=== PATIENT | male | born 1995 | race Caucasian/White ===

== ENCOUNTER 2018-06-11 17:18 | Inpatient (IN) | payer OTHER ==
[2018-06-11] MEDS ORDERED: ELECTROLYTE-A SOLUTION 1,000 ML IV STA (17:37)
[2018-06-11] MEDS ORDERED: ELECTROLYTE-A SOLUTION 1,000 ML IV ONE ×2 (17:37→18:21)
[2018-06-11] MEDS ORDERED: ONDANSETRON 4 MG/2 ML VIAL IVP STA (17:38)
--- NOTE | 2018-06-11 17:48 | ED Physician Documentation ---
History of Present Illness - Stated complaint Stated Complaint: N/V/ INCREASED HR - Chief complaint Chief Complaint: General - History obtained from History obtained from: Patient - History of Present Illness Timing: Today Pain level max: 0 Pain level now: 0 Improved by: nothing Worsened by: nothing - Additonal information Additional information: Patient is a 22-year-old male who presents to the emergency department after being diagnosed with type 1 diabetes approximately 2 months ago. States that he has had vomiting today and feels like his blood sugar is high. Has not checked his blood sugar today. He is on Lantus and Humalog at home. No fevers. No abdominal pain. No diarrhea. No recent travel. No antibiotics. No changes to his medication. He does use a sliding scale. Review of Systems Ten Systems: 10 systems reviewed and negative Constitutional: denies: Fever, Chills Ears: denies: Ear pain Nose: denies: Rhinorrhea / runny nose, Congestion Throat: denies: Sore throat Cardiac: denies: Chest pain / pressure Respiratory: denies: Cough GI: reports: Nausea, Vomiting. denies: Abdominal Pain, Diarrhea : denies: Dysuria Skin: denies: Rash Musculoskeletal: denies: Neck pain, Back pain Neurologic: denies: Headache PD PAST MEDICAL HISTORY - Past Medical History Past Medical History: Yes Endocrine/Autoimmune: Type 1 diabetes - Past Surgical History Past Surgical History: No - Present Medications Home Medications: Ambulatory Orders Medication Instructions Recorded Confirmed Insulin Glargine [Lantus Solostar] 25 unit SQ DAILY 06/11/18 06/11/18 Insulin Lispro [Humalog] PRN 06/11/18 - Allergies Allergies/Adverse Reactions: Allergies Allergy/AdvReac Type Severity Reaction Status Date / Time No Known Drug Allergies Allergy Verified 06/11/18 17:29 - Living Situation Living Situation: reports: With family Living Arrangement: reports: At home - Social History Does the pt smoke?: No Does the pt have substance abuse?: No PD ED PE NORMAL - Vitals Vital signs reviewed: Yes - General General: Alert and oriented X 3, No acute distress - HEENT HEENT: Moist mucous membranes - Neck Neck: Supple, no meningeal sign - Cardiac Cardiac: RRR - Respiratory Respiratory: No respiratory distress, Clear bilaterally - Abdomen Abdomen: Soft, Non tender, Non distended - Back Back: No CVA TTP, No spinal TTP - Derm Derm: Warm and dry, No rash - Extremities Extremities: No edema, No calf tenderness / cord - Neuro Neuro: Alert and oriented X 3 - Psych Psych: Normal mood, Normal affect Results - Vitals Vitals: Vital Signs - 24 hr 06/11/18 06/11/18 06/11/18 17:25 18:14 19:19 Temperature 36.5 C Heart Rate 128 H 86 88 Respiratory 18 18 18 Rate Blood Pressure 108/80 120/79 119/74 O2 Saturation 97 100 100 Oxygen O2 Source Room air - EKG (time done) 1746 Rate: Rate (enter#) (111) Rhythm: Sinus tachycardia [place]: Normal Intervals: Normal [place] QRS: Normal Ischemia: Normal ST segments - Labs Labs: Laboratory Tests 06/11/18 06/11/18 06/11/18 17:25 17:44 17:44 WBC 19.6 H RBC 5.59 Hgb 17.0 Hct 50.6 MCV 90.5 MCH 30.4 MCHC 33.6 RDW 13.3 Plt Count 244 MPV 9.6 Neut # (Auto) 16.9 H Lymph # (Auto) 2.2 [place] # (Auto) 0.5 Eos # (Auto) 0.0 Baso # (Auto) 0.0 Absolute Nucleated RBC 0.01 Nucleated RBC % 0.1 VBG pH VBG pCO2 VBG pO2 VBG HCO3 VBG Total CO2 VBG O2 Saturation VBG Base Excess Sodium 132 L Potassium 4.3 Chloride 100 L Carbon Dioxide 12 L* Anion Gap 20.0 H BUN 10 Creatinine 0.9 Estimated GFR (MDRD) 108 Glucose 316 H POC Whole Bld Glucose 309 H Calcium 9.4 Total Bilirubin 1.5 H AST 21 ALT 20 Alkaline Phosphatase 82 Total Protein 8.3 H Albumin 5.4 Globulin 2.9 Albumin/Globulin Ratio 1.9 Lipase 20 L Urine Color Urine Clarity Urine pH Ur Specific [place] Urine Protein Urine Glucose (UA) Urine Ketones Urine Occult Blood Urine Nitrite Urine Bilirubin Urine Urobilinogen Ur Leukocyte Esterase Urine RBC Urine WBC Ur Squamous Epith Cells Urine Bacteria Urine Casts Ur Microscopic Review Urine Culture Comments Urine Opiates Screen Ur Oxycodone Screen Urine Methadone Screen Ur Propoxyphene Screen Ur Barbiturates Screen Ur Tricyclics Screen Ur Phencyclidine Scrn Ur Amphetamine Screen U Methamphetamines Scrn U Benzodiazepines Scrn Urine Cocaine Screen U Cannabinoids Screen Serum Ketones SMALL H 09/14/18 09/14/18 09/14/18 18:20 18:40 18:40 WBC RBC Hgb Hct MCV MCH MCHC RDW Plt Count MPV Neut # (Auto) Lymph # (Auto) [place] # (Auto) Eos # (Auto) Baso # (Auto) Absolute Nucleated RBC Nucleated RBC % VBG pH 7.127 L VBG pCO2 32.6 L VBG pO2 31.6 VBG HCO3 10.5 L VBG Total CO2 11.5 L VBG O2 Saturation 60.5 VBG Base Excess -17.6 L Sodium Potassium Chloride Carbon Dioxide Anion Gap BUN Creatinine Estimated GFR (MDRD) Glucose POC Whole Bld Glucose Calcium Total Bilirubin AST ALT Alkaline Phosphatase Total Protein Albumin Globulin Albumin/Globulin Ratio Lipase Urine Color YELLOW Urine Clarity CLEAR Urine pH 5.5 Ur Specific [place] >=1.030 H Urine Protein 30 H Urine Glucose (UA) 500 H Urine Ketones >=80 H Urine Occult Blood TRACE-LYSE Urine Nitrite NEGATIVE Urine Bilirubin NEGATIVE Urine Urobilinogen 0.2 (NORMAL) Ur Leukocyte Esterase NEGATIVE Urine RBC 0-5 Urine WBC 0-3 Ur Squamous Epith Cells NONE SEEN Urine Bacteria None Seen Urine Casts 0-2 Hyaline Casts Ur Microscopic Review INDICATED Urine Culture Comments NOT INDICATED Urine Opiates Screen NEGATIVE Ur Oxycodone Screen NEGATIVE Urine Methadone Screen NEGATIVE Ur Propoxyphene Screen NEGATIVE Ur Barbiturates Screen NEGATIVE Ur Tricyclics Screen NEGATIVE Ur Phencyclidine Scrn NEGATIVE Ur Amphetamine Screen NEGATIVE U Methamphetamines Scrn NEGATIVE U Benzodiazepines Scrn NEGATIVE Urine Cocaine Screen NEGATIVE U Cannabinoids Screen NEGATIVE Serum Ketones 06/11/18 06/11/18 19:00 19:27 WBC RBC Hgb Hct MCV MCH MCHC RDW Plt Count MPV Neut # (Auto) Lymph # (Auto) [place] # (Auto) Eos # (Auto) Baso # (Auto) Absolute Nucleated RBC Nucleated RBC % VBG pH VBG pCO2 VBG pO2 VBG HCO3 VBG Total CO2 VBG O2 Saturation VBG Base Excess Sodium Potassium Chloride Carbon Dioxide Anion Gap BUN Creatinine Estimated GFR (MDRD) Glucose POC Whole Bld Glucose 296 H 279 H Calcium Total Bilirubin AST ALT Alkaline Phosphatase Total Protein Albumin Globulin Albumin/Globulin Ratio Lipase Urine Color Urine Clarity Urine pH Ur Specific [place] Urine Protein Urine Glucose (UA) Urine Ketones Urine Occult Blood Urine Nitrite Urine Bilirubin Urine Urobilinogen Ur Leukocyte Esterase Urine RBC Urine WBC Ur Squamous Epith Cells Urine Bacteria Urine Casts Ur Microscopic Review Urine Culture Comments Urine Opiates Screen Ur Oxycodone Screen Urine Methadone Screen Ur Propoxyphene Screen Ur Barbiturates Screen Ur Tricyclics Screen Ur Phencyclidine Scrn Ur Amphetamine Screen U Methamphetamines Scrn U Benzodiazepines Scrn Urine Cocaine Screen U Cannabinoids Screen Serum Ketones PD MEDICAL DECISION MAKING - ED course Complexity details: reviewed results, re-evaluated patient, considered differential, d/w patient, d/w family ED course: Patient is a 22-year-old male who presents to the emergency department with DKA. Given IV fluids and started on insulin drip. He was then changed to D5 as his blood sugar was decreasing under 300. Discussed the case with Dr. Arnold, hospitalist who accepts. This document was made in part using voice recognition software. While efforts are made to proofread this document, sound alike and grammatical errors may occur. - Sepsis Event Vital Signs: Vital Signs - 24 hr 06/11/18 06/11/18 06/11/18 17:25 18:14 19:19 Temperature 36.5 C Heart Rate 128 H 86 88 Respiratory 18 18 18 Rate Blood Pressure 108/80 120/79 119/74 O2 Saturation 97 100 100 Oxygen O2 Source Room air Departure - Departure Disposition: 66 [facility] DC/Xfer Clinical Impression: DKA (diabetic ketoacidoses) Qualifiers: Diabetes mellitus type: type 1 Diabetes mellitus complication detail: without coma Qualified Code(s): E10.10 - Type 1 diabetes mellitus with ketoacidosis without coma Condition: Stable Discharge Date/Time: 06/11/18 20:20
[2018-06-11 18:16] LABS: BASOPHILS % (AUTO) 0.2 %; LYMPHOCYTES # (AUTO) 2.2 10^3/uL (1.5-3.5); LYMPHOCYTES % (AUTO) 11.1 %; MEAN CORPUSCULAR HEMOGLOBIN 30.4 pg (27.0-31.0); MEAN CORPUSCULAR HGB CONC 33.6 g/dL (32.0-36.0); MEAN CORPUSCULAR VOLUME 90.5 fL (80.0-94.0); MEAN PLATELET VOLUME 9.6 fL (7.4-11.4); MONOCYTES # (AUTO) 0.5 10^3/uL (0.0-1.0); MONOCYTES % (AUTO) 2.6 %; NEUTROPHILS # (AUTO) 16.9 10^3/uL (1.5-6.6); NEUTROPHILS % (AUTO) 86.1 %; PLT - PLATELET COUNT 244 10^3/uL (130-450); RED BLOOD COUNT 5.59 10^6/uL (4.70-6.10); RED CELL DISTRIBUTION WIDTH 13.3 % (12.0-15.0); WHITE BLOOD COUNT 19.6 x10^3/uL (4.8-10.8)
[2018-06-11 18:22] LABS: KETONES, SERUM (ACETEST) SMALL (NEGATIVE)
[2018-06-11 18:30] LABS: ALBUMIN 5.4 g/dL (3.2-5.5); ALBUMIN/GLOBULIN RATIO 1.9 (1.0-2.2); ALKALINE PHOSPHATASE 82 IU/L (42-121); ALT ALANINE AMINOTRANSFERASE 20 IU/L (10-60); AST ASPARTATE AMINOTRANSFERASE 21 IU/L (10-42); BILIRUBIN,TOTAL 1.5 mg/dL (0.2-1.0); BUN - BLOOD UREA NITROGEN 10 mg/dL (6-20); CALCIUM 9.4 mg/dL (8.5-10.3); CHLORIDE 100 mmol/L (101-111); CREATININE 0.9 mg/dL (0.6-1.2); GFR - MDRD 108 (>89); GLUCOSE 316 mg/dL (70-100); LIPASE 20 U/L (22-51); SODIUM 132 mmol/L (135-145); TOTAL PROTEIN 8.3 g/dL (6.7-8.2)
[2018-06-11 18:31] LABS: CARBON DIOXIDE - CO2 12 mmol/L (21-32)
[2018-06-11] MEDS ORDERED: INSULIN REGULAR HUMAN 100 UNIT in SODIUM CHLORIDE 0.9% 100ML 99 ML IV STA (18:32)
[2018-06-11 18:39] LABS: VBG PCO2 32.6 mmHg (41-51); VBG PH 7.127 (7.31-7.41); VBG PO2 31.6 mmHg (25-47)
[2018-06-11 18:40] LABS: VBG BASE EXCESS -17.6 mmol/L (-2 - +2); VBG TOTAL CO2 11.5 mmol/L (24-29)
[2018-06-11 19:24] LABS: BILIRUBIN,URINE NEGATIVE (NEGATIVE); GLUCOSE, URINE (UA) 500 mg/dL (NEGATIVE); KETONES,URINE (UA) >=80 mg/dL (NEGATIVE); LEUKOCYTE ESTERASE, URINE NEGATIVE (NEGATIVE); NITRITE,URINE NEGATIVE (NEGATIVE); OCCULT BLOOD,URINE TRACE-LYSE (NEGATIVE); PH,URINE 5.5 PH (5.0-7.5); PROTEIN,URINE 30 mg/dL (NEGATIVE); UROBILINOGEN,URINE 0.2 (NORMAL) E.U./dL (NORMAL)
[2018-06-11 19:28] LABS: CLARITY,URINE CLEAR (CLEAR)
[2018-06-11] MEDS ORDERED: ONDANSETRON 4 MG/2 ML VIAL IVP PRN (19:29)
[2018-06-11] MEDS ORDERED: PROMETHAZINE 25 MG/1 ML VIAL IM PRN (19:29)
[2018-06-11] MEDS ORDERED: IBUPROFEN 600 MG TABLET PO PRN (19:29)
[2018-06-11] MEDS ORDERED: PROCHLORPERAZINE 10 MG/2 ML VIAL IVP PRN (19:29)
[2018-06-11] MEDS ORDERED: HYDROcod/ACETAM 5/325 MG TABLET PO PRN (19:29)
[2018-06-11] MEDS ORDERED: ACETAMINOPHEN 325 MG TABLET PO PRN (19:29)
[2018-06-11] MEDS ORDERED: SODIUM CHLORIDE FLUSH 0.9% 10 ML SYRINGE IVP PRN (19:29)
[2018-06-11] MEDS ORDERED: D5.45NS W/20 MEQ KCL 1,000 ML IV STA (19:30)
[2018-06-11 19:32] LABS: BACTERIA,URINE None Seen /HPF (None Seen); CASTS, URINE 0-2 Hyaline Casts /LPF; RBC,URINE 0-5 /HPF (0-5); SQUAMOUS EPITHELIAL CELL,UR NONE SEEN (<= Few)
[2018-06-11] MEDS ORDERED: INSULIN REGULAR HUMAN 100 UNIT in SODIUM CHLORIDE 0.9% 100ML 99 ML IV SCH (20:00)
[2018-06-11 20:12] LABS: VBG BASE EXCESS -18.4 mmol/L (-2 - +2); VBG PCO2 27.4 mmHg (41-51); VBG PH 7.137 (7.31-7.41); VBG PO2 52.5 mmHg (25-47); VBG TOTAL CO2 9.9 mmol/L (24-29)
[2018-06-11 20:15] LABS: MUDS CUTOFF CONCENTRATIONS CUTOFF CONC BELOW:
--- NOTE | 2018-06-11 20:23 | HISTORY & PHYSICAL EXAMINATION ---
Chief Complaint - Chief Complaint Chief Complaint: Nausea and vomiting History of Present Illness - Admitted From Admitted From:: Emergency Department - History Obtained From Records Reviewed: Yes History obtained from: Patient Exam Limitations: None - History of Present Illness HPI Comment/Other: Patient is a very pleasant 22-year-old male with a past medical history significant for type 1 diabetes mellitus diagnosed in February 2008 team. The patient states that he was first diagnosed in [place], [place] where he was studying. He states at that time he presented to the emergency department with nausea, vomiting, polyuria and polydipsia. He was found to be in diabetic ketoacidosis at that time and required hospitalization. The patient states that since then he has been started on an insulin regimen which includes 25 units of Lantus at night and sliding scale Humalog with meals. He has been given some ed ucation on diabetes. He states he moved up to [facility] about a month ago to live with his parents. He states that since moving here he is seen a new primary care physician at the [facility] in [place]. He has been scheduled to see an ecmo specialist in June and has been compliant with his insulin regimen. The patient states that he was in his normal state of health until late last night when he states he felt nauseated before he went to bed. He denies any abdominal pain at that time or any fevers or chills. He denies eating anything abnormal last night. He states that when he woke up this morning he was very nauseated and unable to have his breakfast. He states throughout the day he began having episodes of vomiting. He states that he remained nauseated and was vomiting throughout the day. He denies any polyuria or polydipsia. He states that he has not eaten anything all day. He states that he was having some mild abdominal pain off and on but it was nonlocalized and did not persist for any considerable amount of time. The patient denies any fevers or chills throughout the day. He denies any diarrhea or recent constipation. He denies any abdominal bloating or distention. He states that no one else in the house has been sick recently. He states no one else around him had similar symptoms. He denies any cough, chest pain, dysuria, back pain, neck stiffness or headache. He denies missing any doses of insulin or eating any more calories than normal yesterday. The patient states that when his nausea would not resolve he finally decided to come to the emergency department this evening. Patient denies any blurred vision, runny nose, sore throat, nasal congestion, difficulty swallowing, shortness of air, orthopnea, PND, increased lower extremity swelling, joint pain, muscle aches, night sweats or any focal neurologic deficits. On presentation to the emergency department the patient was afebrile, tachycardic with heart rate of 128, borderline hypotensive with a blood pressure of 108/80 and appeared ill. The patient was not tachypneic and was not in any respiratory distress. The patient's initial lab work revealed a blood glucose of 309 with a metabolic acidosis pH of 7.1. The patient had positive serum ketones and an anion gap of 20. The patient appear to be in diabetic ketoacidosis and was started on an insulin drip and given several liters of IV fluid in the emergency department. The patient's blood glucose did improve below 300 while he was in the emergency department however he continued to have serum ketones and an anion gap. The patient was admitted to the intensive care unit for treatment of diabetic ketoacidosis. History - Past Medical History Endocrine/Autoimmune: reports: Type 1 diabetes MRSA Hx?: No - Family & Social History Living arrangement: At home Living Situation: With family - POLST Patient has POLST: No POLST Status: Full Code Meds/Allgy - Home Medications Home Medications: Ambulatory Orders Medication Instructions Recorded Confirmed Insulin Glargine [Lantus Solostar] 25 unit SQ DAILY 06/11/18 06/11/18 Insulin Lispro [Humalog] PRN 06/11/18 - Allergies Allergies/Adverse Reactions: Allergies Allergy/AdvReac Type Severity Reaction Status Date / Time No Known Drug Allergies Allergy Verified 06/11/18 17:29 Review of Systems - Other Findings Other Findings: A comprehensive review of systems was performed the pertinent positives and negatives are stated above in the HPI and the remainder of the review of systems is negative. Exam - Vital Signs Reviewed Vital Signs: Yes Vital Signs: Vital Signs x48h Temp Pulse Resp BP Pulse Ox 06/11/18 19:19 88 18 119/74 100 06/11/18 18:14 86 18 120/79 100 06/11/18 17:25 36.5 C 128 H 18 108/80 97 - Physical Exam General Appearance: positive: No acute distress, Alert, Other (Very dry appearing) Eyes Bilateral: positive: Normal inspection, PERRL, EOMI, No lid inflammation, Conjunctivae nml, No scleral icterus ENT: positive: ENT inspection nml, Pharynx nml, Dry mucous membranes. negative: Purulent nasal drainage, Pharyngeal erythema, Oral lesions Neck: positive: Nml inspection, Thyroid nml, No JVD, Trachea midline. negative: Thyromegaly, Lymphadenopathy (R), Lymphadenopathy (L), Stiff neck, Carotid bruit, Tracheal deviation Respiratory: positive: Chest non-tender, No respiratory distress, Breath sounds nml. negative: Wheezes, Rales, Rhonchi Cardiovascular: positive: No murmur, No gallop, Tachycardia Peripheral Pulses: positive: 2+ Abdomen: positive: Non-tender, No organomegaly, Nml bowel sounds, No distention. negative: Guarding, Rebound, Hepatomegaly Back: positive: Nml inspection. negative: CVA tenderness (R), CVA tenderness (L) Skin: positive: Color nml, No rash, Warm, Dry Extremities: positive: Non-tender, Full ROM, Nml appearance, No pedal edema Neurologic/Psychiatric: positive: Oriented x3, CN's nml (2-12), Motor nml, Sensation nml, Mood/affect nml Conclusion/Plan - Problem List (1) DKA (diabetic ketoacidoses) Conclusion/Plan: Patient was admitted to the intensive care unit with diabetic ketoacidosis. The patient presented with nausea and vomiting 1 day. He does not appear to have any ongoing pneumonia, IN, UTI and he has not had noncompliance with medications. It is suspected that the patient likely has a viral gastroenteritis which has led to the patient going into DKA. According to the patient his blood glucose has run between 125 and the low 200s at home and he has been compliant with his long acting and short acting insulin. We will need to check his hemoglobin A1c to see how well he has been controlling his blood glucose at home. Patient may need further education and is has only been 3 months since his diagnosis. Plan: Admit to ICU NPO Place on insulin drip at 1unit/kg/hr Give IVFs with D5 1/2 NS and 20 meq of K Check BMP q 2 hours Monitor anion gap Check hemoglobin A1c Once gap closed will give subQ lantus, place on SS nutritional insulin, start diabetic diet and stop insulin drip 1 hour later Nutrition consult Qualifiers: Diabetes mellitus type: type 1 Diabetes mellitus complication detail: without coma Qualified Code(s): E10.10 - Type 1 diabetes mellitus with ketoacidosis without coma (2) Dehydration Conclusion/Plan: The patient does appear to be dehydrated on examination. His sodium is low at 131, his WBC is elevated at 19.6 and he is very dry on examination. The patient has been having intractable nausea and vomiting and is in DKA both of which would cause dehydration. Plan: Patient has been given 2 L of IV fluid in the emergency department and will be continued on maintenance fluid while he is hospitalized. (3) Leukocytosis Conclusion/Plan: The patient does have leukocytosis on presentation with a WBC of 19.6. This may be a reactive leukocytosis secondary to DKA and dehydration. The patient may also have a gastroenteritis that could be causing this leukocytosis. For now the patient will be given IV fluids and will have his DKA treated with an insulin drip. We will continue to monitor the patient's WBC. Qualifiers: Leukocytosis type: unspecified Qualified Code(s): D72.829 - Elevated white blood cell count, unspecified (4) Elevated bilirubin Conclusion/Plan: The patient does have a mildly elevated bilirubin of 1.5. The remainder of the patient's LFTs are all within normal limits. The patient does not have any significant abdominal tenderness. Though he did present with nausea and vomiting and intermittent abdominal pain. It does not appear that this is a significant elevation in his bilirubin and may just be reactive secondary to his DKA. We will however get an abdominal ultrasound and monitor his bilirubin and LFTs while he is hospitalized. (5) Hyponatremia Conclusion/Plan: The patient does have a mild hyponatremia with a sodium of 132. Partially this is a pseudohyponatremia secondary to his elevated blood glucose. However this is also hypovolemic hyponatremia secondary to dehydration. Patient will be given IV fluids and we will continue to monitor his sodium. - Lab Results Lab results reviewed: Yes Fish Bones: 06/11/18 17:44 06/11/18 21:32 Other Lab Results: Laboratory Results WBC 19.6 x10^3/uL (4.8-10.8) H 09/14/18 17:44 RBC 5.59 10^6/uL (4.70-6.10) 06/11/18 17:44 Hgb 17.0 g/dL (14.0-18.0) 06/11/18 17:44 Hct 50.6 % (42.0-52.0) 06/11/18 17:44 MCV 90.5 fL (80.0-94.0) 06/11/18 17:44 MCH 30.4 pg (27.0-31.0) 06/11/18 17:44 MCHC 33.6 g/dL (32.0-36.0) 06/11/18 17:44 RDW 13.3 % (12.0-15.0) 06/11/18 17:44 Plt Count 244 10^3/uL (130-450) 06/11/18 17:44 MPV 9.6 fL (7.4-11.4) 06/11/18 17:44 Neut # (Auto) 16.9 10^3/uL (1.5-6.6) H 06/11/18 17:44 Lymph # (Auto) 2.2 10^3/uL (1.5-3.5) 06/11/18 17:44 [place] # (Auto) 0.5 10^3/uL (0.0-1.0) 06/11/18 17:44 Eos # (Auto) 0.0 10^3/uL (0.0-0.7) 06/11/18 17:44 Baso # (Auto) 0.0 10^3/uL (0.0-0.1) 06/11/18 17:44 Absolute Nucleated RBC 0.01 x10^3/uL 06/11/18 17:44 Nucleated RBC % 0.1 /100WBC 06/11/18 17:44 VBG pH 7.137 (7.31-7.41) L 06/11/18 20:00 VBG pCO2 27.4 mmHg (41-51) L 06/11/18 20:00 VBG pO2 52.5 mmHg (25-47) H 06/11/18 20:00 VBG HCO3 9.1 mmol/L (23-28) L 06/11/18 20:00 VBG Total CO2 9.9 mmol/L (24-29) L 06/11/18 20:00 VBG O2 Saturation 85.5 % (60-80) H 06/11/18 20:00 VBG Base Excess -18.4 mmol/L (-2 - +2) L 06/11/18 20:00 Sodium 132 mmol/L (135-145) L 06/11/18 17:44 Potassium 4.3 mmol/L (3.5-5.0) 06/11/18 17:44 Chloride 100 mmol/L (101-111) L 06/11/18 17:44 Carbon Dioxide 12 mmol/L (21-32) L* 06/11/18 17:44 Anion Gap 20.0 (6-13) H 06/11/18 17:44 BUN 10 mg/dL (6-20) 06/11/18 17:44 Creatinine 0.9 mg/dL (0.6-1.2) 06/11/18 17:44 Estimated GFR (MDRD) 108 (>89) 06/11/18 17:44 Glucose 316 mg/dL (70-100) H 06/11/18 17:44 POC Whole Bld Glucose 279 mg/dL (70 - 100) H 06/11/18 19:27 Calcium 9.4 mg/dL (8.5-10.3) 06/11/18 17:44 Total Bilirubin 1.5 mg/dL (0.2-1.0) H 06/11/18 17:44 AST 21 IU/L (10-42) 06/11/18 17:44 ALT 20 IU/L (10-60) 06/11/18 17:44 Alkaline Phosphatase 82 IU/L (42-121) 06/11/18 17:44 Total Protein 8.3 g/dL (6.7-8.2) H 06/11/18 17:44 Albumin 5.4 g/dL (3.2-5.5) 06/11/18 17:44 Globulin 2.9 g/dL (2.1-4.2) 06/11/18 17:44 Albumin/Globulin Ratio 1.9 (1.0-2.2) 06/11/18 17:44 Lipase 20 U/L (22-51) L 06/11/18 17:44 Urine Color YELLOW 06/11/18 18:40 Urine Clarity CLEAR (CLEAR) 06/11/18 18:40 Urine pH 5.5 PH (5.0-7.5) 06/11/18 18:40 Ur Specific [place] >=1.030 (1.002-1.030) H 06/11/18 18:40 Urine Protein 30 mg/dL (NEGATIVE) H 06/11/18 18:40 Urine Glucose (UA) 500 mg/dL (NEGATIVE) H 06/11/18 18:40 Urine Ketones >=80 mg/dL (NEGATIVE) H 06/11/18 18:40 Urine Occult Blood TRACE-LYSE (NEGATIVE) 06/11/18 18:40 Urine Nitrite NEGATIVE (NEGATIVE) 06/11/18 18:40 Urine Bilirubin NEGATIVE (NEGATIVE) 06/11/18 18:40 Urine Urobilinogen 0.2 (NORMAL) E.U./dL (NORMAL) 06/11/18 18:40 Ur Leukocyte Esterase NEGATIVE (NEGATIVE) 06/11/18 18:40 Urine RBC 0-5 /HPF (0-5) 06/11/18 18:40 Urine WBC 0-3 /HPF (0-3) 06/11/18 18:40 Ur Squamous Epith Cells NONE SEEN (<= Few) 06/11/18 18:40 Urine Bacteria None Seen /HPF (None Seen) 06/11/18 18:40 Urine Casts 0-2 Hyaline Casts /LPF 06/11/18 18:40 Ur Microscopic Review INDICATED 06/11/18 18:40 Urine Culture Comments NOT INDICATED 06/11/18 18:40 Serum Ketones SMALL (NEGATIVE) H 06/11/18 20:00 - Diagnostic Imaging Results Diagnostic Imaging Results: positive: Final report reviewed Diagnostic Imaging Results Comments: Chest x-ray Impression: Normal single view chest x-ray - EKG Results EKG Interpreted Independently: Yes EKG Findings: Sinus tachycardia Core Measures - Anticipated LOS I expect patient to be DC'd or transferred within 96 hours.: Yes - DVT/VTE - Prophylaxis VTE/DVT Device ordered at admit?: Yes
[2018-06-11 20:30] LABS: AMPHETAMINE SCREEN,URINE NEGATIVE (NEGATIVE); COCAINE SCREEN URINE NEGATIVE (NEGATIVE); METHAMPHETAMINES SCREEN, URINE NEGATIVE (NEGATIVE); OPIATE SCREEN, URINE NEGATIVE (NEGATIVE)
[2018-06-11 20:31] LABS: BENZODIAZEPINES SCREEN, URINE NEGATIVE (NEGATIVE); METHADONE SCREEN, URINE NEGATIVE (NEGATIVE); OXYCODONE SCREEN, URINE NEGATIVE (NEGATIVE); PROPOXYPHENE SCREEN, URINE NEGATIVE (NEGATIVE); TRICYCLIC ANTIDEPRESSANT,URINE NEGATIVE (NEGATIVE)
[2018-06-11 20:32] LABS: CALCIUM 8.4 mg/dL (8.5-10.3); CREATININE 0.7 mg/dL (0.6-1.2)
[2018-06-11 20:39] LABS: HB2 TOTAL 18.2 g/dL; HEMOGLOBIN A1C 2.44 g/dL; HEMOGLOBIN A1C % 14.4 % (4.6-6.2)
[2018-06-11] MEDS: D5.45NS W/20 MEQ KCL 1,000 ML IV SCH (21:11)
[2018-06-11 21:48] LABS: KETONES, SERUM (ACETEST) SMALL (NEGATIVE)
[2018-06-11 21:51] LABS: BUN - BLOOD UREA NITROGEN 8 mg/dL (6-20); CALCIUM 8.4 mg/dL (8.5-10.3); CARBON DIOXIDE - CO2 13 mmol/L (21-32); CHLORIDE 105 mmol/L (101-111); CREATININE 0.8 mg/dL (0.6-1.2); GFR - MDRD 123 (>89); GLUCOSE 218 mg/dL (70-100); MAGNESIUM 1.8 mg/dL (1.7-2.8); SODIUM 131 mmol/L (135-145)
--- NOTE | 2018-06-11 22:04 | XRAY Report ---
Reason: Leukocytosis Procedure Date: 06/11/2018 Accession Number: [id number] / [id number] Procedure: XR - Chest 1 View X-Ray CPT Code: 24969 FULL RESULT: EXAM: CHEST RADIOGRAPHY EXAM DATE: 06/11/2018 08:18 PM. CLINICAL HISTORY: Leukocytosis. Nausea, vomiting this morning. COMPARISON: None. TECHNIQUE: 1 view. FINDINGS: Lungs/Pleura: No focal opacities evident. No pleural effusion. No pneumothorax. Mediastinum: Within exam limitations, the cardiomediastinal contour is normal. Other: None. IMPRESSION: Normal single view chest. RADIA
[2018-06-11 23:55] LABS: KETONES, SERUM (ACETEST) SMALL (NEGATIVE)
[2018-06-12 00:01] LABS: BUN - BLOOD UREA NITROGEN 8 mg/dL (6-20); CALCIUM 8.7 mg/dL (8.5-10.3); CARBON DIOXIDE - CO2 15 mmol/L (21-32); CHLORIDE 109 mmol/L (101-111); CREATININE 0.7 mg/dL (0.6-1.2); GFR - MDRD 144 (>89); GLUCOSE 212 mg/dL (70-100); MAGNESIUM 1.9 mg/dL (1.7-2.8); SODIUM 132 mmol/L (135-145)
[2018-06-12] MEDS: SODIUM CHLORIDE FLUSH 0.9% 10 ML SYRINGE IVP SCH ×3 (01:15→17:00)
[2018-06-12 02:05] LABS: CALCIUM 8.8 mg/dL (8.5-10.3); CREATININE 0.6 mg/dL (0.6-1.2)
[2018-06-12] MEDS ORDERED: INSULIN GLARGINE 300 UNIT/3 ML PEN SUBQ SCH ×2 (02:21→21:00)
[2018-06-12] MEDS: D5.45NS W/20 MEQ KCL 1,000 ML IV SCH ×2 (05:28→13:05)
[2018-06-12] MEDS: INSULIN REGULAR HUMAN 100 UNIT/1 ML 10 ML MDV SUBQ SCH ×2 (05:32→11:55)
[2018-06-12 06:14] LABS: BASOPHILS % (AUTO) 0.3 %; EOSINOPHILS # (AUTO) 0.1 10^3/uL (0.0-0.7); HGB - HEMOGLOBIN 14.8 g/dL (14.0-18.0); LYMPHOCYTES % (AUTO) 29.9 %; MEAN CORPUSCULAR VOLUME 88.6 fL (80.0-94.0); MEAN PLATELET VOLUME 9.2 fL (7.4-11.4); MONOCYTES % (AUTO) 9.6 %; NEUTROPHILS # (AUTO) 5.9 10^3/uL (1.5-6.6); NEUTROPHILS % (AUTO) 59.2 %; PLT - PLATELET COUNT 176 10^3/uL (130-450); RED BLOOD COUNT 4.77 10^6/uL (4.70-6.10); RED CELL DISTRIBUTION WIDTH 13.2 % (12.0-15.0)
[2018-06-12 06:19] LABS: ALBUMIN 3.9 g/dL (3.2-5.5); ALBUMIN/GLOBULIN RATIO 1.9 (1.0-2.2); BILIRUBIN,TOTAL 1.1 mg/dL (0.2-1.0); CALCIUM 8.8 mg/dL (8.5-10.3); CREATININE 0.6 mg/dL (0.6-1.2); MAGNESIUM 1.9 mg/dL (1.7-2.8); PHOSPHORUS 3.1 mg/dL (2.5-4.6)
--- NOTE | 2018-06-12 08:40 | Ultrasound Report ---
Reason: Elevated bili and leukocytosis DKA Procedure Date: 06/12/2018 Accession Number: [id number] / [id number] Procedure: US - Abdomen Complete CPT Code: FULL RESULT: EXAM: ABDOMEN ULTRASOUND EXAM DATE: 06/12/2018 08:28 AM. CLINICAL HISTORY: Elevated bili and leukocytosis DKA. COMPARISON: None. TECHNIQUE: Real-time scanning was performed with static images obtained. FINDINGS: Liver: Normal echotexture.No focal lesion. Liver measures 15.0 cm craniocaudally. Main portal vein flow: Hepatopetal. Gallbladder: Gallbladder wall thickness is normal.No gallstones.Sonographic Pena sign is absent, per technologist's notes. Biliary System: Common bile duct measures 2.8 mm. No intrahepatic ductal dilatation. Pancreas: Visualized portion is unremarkable. Kidneys: Right: 12.4 cm longitudinally. Normal echotexture.No hydronephrosis.No contour-deforming mass.No calculus. Left: 12.4 cm longitudinally. Normal echotexture.No hydronephrosis.No contour-deforming mass.No calculus. Spleen: 8.2 cm. No focal lesion. Aorta and Inferior Vena Cava: Unremarkable. IMPRESSION: 1. Unremarkable abdominal ultrasound. RADIA
[2018-06-12] MEDS: POLYETHYLENE GLYCOL 3350 17 GM PACKET PO SCH (08:51)
[2018-06-12] MEDS: FAMOTIDINE 20 MG TABLET PO SCH (09:24)
[2018-06-12 14:07] LABS: CALCIUM 8.5 mg/dL (8.5-10.3); CREATININE 0.6 mg/dL (0.6-1.2)
[2018-06-12] MEDS: NS W/20 MEQ KCL 1,000 ML IV SCH (15:00)
--- NOTE | 2018-06-12 15:53 | PROVIDER PROGRESS NOTE ---
Assessment/Plan - Problem List (1) DKA (diabetic ketoacidoses) Qualifiers: Diabetes mellitus type: type 1 Diabetes mellitus complication detail: without coma Qualified Code(s): E10.10 - Type 1 diabetes mellitus with ketoacidosis without coma Assessment/Plan: Not entirely resolved with small ketones in serum still present this afternoon. Continue iv fluids, advance diet, glu checks and Lantus plus ss Insulin coverage. Follow daily BMP, Mg. Follow serum ketones q6-12 h. (2) Hyponatremia Assessment/Plan: Multifactorial : from N/V and dehydration plus psuedohyponatremia from elevated serum glucose. Continue hydration with Normal Saline. (3) Elevated bilirubin Assessment/Plan: Improved. US of abdomen was benign. - Current Meds Current Meds: Current Medications Generic Name Dose Route Start Last Admin Trade Name Freq PRN Reason Stop Dose Admin Famotidine 20 mg 06/12/18 09:00 06/12/18 09:24 Pepcid PO 20 mg DAILY WILY Administration Potassium Chloride/Sodium Chloride 1,000 mls @ 83.333 mls/hr 06/12/18 15:00 0 06/12/18 15:00 Normal Saline 0.9% W/20 Meq Kcl IV 83.333 mls/hr .Q12H WILY Administration Polyethylene Glycol 17 gm 06/12/18 09:00 06/12/18 08:51 Miralax PO Not Given DAILY WILY Sodium Chloride 10 ml 06/12/18 01:00 06/12/18 08:54 Normal Saline Flush 0.9% IVP 10 ml 0100,0900,1700 WILY Administration - Lab Result Fish Bone Diagrams: 06/12/18 05:50 06/12/18 13:47 - Additional Planning My Orders: My Active Orders 06/12/18 14:49 Blood Glucose Checks - Eating [RC] 0800,1200,1700,2100 06/12/18 15:00 Ns W/20 Meq KCl [Normal Saline 0.9% W/20 Meq KCl] 1,000 ml IV 83.333 mls/hr 06/12/18 17:00 Insulin Aspart [NovoLOG] 2 - 10 unit SUBQ 0800,1200,1700,2100 06/12/18 18:30 LACTIC ACID, VENOUS [CHEM] Timed 06/12/18 21:00 Insulin Glargine [Lantus Solostar] 25 unit SUBQ QPM 06/12/18 Dinner Carb-controlled Diet [DIET] 06/13/18 05:00 LACTIC ACID, VENOUS [CHEM] Routine Subjective - Subjective Patient Reports: Feeling Better Nursing Reports: Other (Tolerated full liquids and soft diet) Objective Vital Signs: Vital Signs - 24 hr 06/11/18 06/11/18 06/11/18 17:25 18:14 19:19 Temperature 36.5 C Heart Rate 128 H 86 88 Heart Rate [ Monitoring electrodes] Respiratory 18 18 18 Rate Blood Pressure 108/80 120/79 119/74 Blood Pressure [Right Brachial artery] O2 Saturation 97 100 100 06/11/18 06/11/18 06/11/18 20:35 21:00 22:00 Temperature 36.6 C Heart Rate Heart Rate [ 78 90 81 Monitoring electrodes] Respiratory 21 21 18 Rate Blood Pressure Blood Pressure 115/75 116/74 110/68 [Right Brachial artery] O2 Saturation 99 98 98 06/11/18 06/12/18 06/12/18 23:00 00:00 01:00 Temperature 36.8 C Heart Rate Heart Rate [ 76 78 57 L Monitoring electrodes] Respiratory 16 17 14 Rate Blood Pressure Blood Pressure 104/63 116/57 L 105/58 L [Right Brachial artery] O2 Saturation 98 98 99 06/12/18 06/12/18 06/12/18 02:00 03:00 03:27 Temperature 36.6 C Heart Rate Heart Rate [ 55 L 51 L Monitoring electrodes] Respiratory 12 13 Rate Blood Pressure Blood Pressure 102/56 L 101/63 [Right Brachial artery] O2 Saturation 99 99 06/12/18 06/12/18 06/12/18 04:00 05:00 06:25 Temperature Heart Rate Heart Rate [ 52 L 54 L 62 Monitoring electrodes] Respiratory 13 13 14 Rate Blood Pressure Blood Pressure 105/52 L 121/60 115/62 [Right Brachial artery] O2 Saturation 98 98 98 06/12/18 06/12/18 06/12/18 07:00 08:00 09:00 Temperature Heart Rate Heart Rate [ 55 L 53 L 57 L Monitoring electrodes] Respiratory 14 13 16 Rate Blood Pressure Blood Pressure 110/69 119/75 105/78 [Right Brachial artery] O2 Saturation 99 100 100 06/12/18 06/12/18 06/12/18 11:05 12:00 13:00 Temperature Heart Rate Heart Rate [ 53 L 66 65 Monitoring electrodes] Respiratory 16 16 17 Rate Blood Pressure Blood Pressure 108/68 115/81 H 108/66 [Right Brachial artery] O2 Saturation 99 99 100 06/12/18 06/12/18 14:00 15:00 Temperature Heart Rate Heart Rate [ 52 L 56 L Monitoring electrodes] Respiratory 19 17 Rate Blood Pressure Blood Pressure 101/69 116/62 [Right Brachial artery] O2 Saturation 99 99 Oxygen O2 Source Room air I&O (Last 24 Hrs): Intake and Output Totals x24h 06/10/18 06/11/18 06/12/18 23:59 23:59 23:59 Intake Total 2251.335 2790.665 Output Total 725 600 Balance 2570.098 7974.665 General: Alert, Oriented x3 HEENT: Mucous membr. moist/pink Neck: Supple, No JVD Neuro: Non Focal Cardiovascular: Regular rate, No murmurs Respiratory: No respiratory distress, Breath sounds nml Abdomen: Soft, No tenderness Extremities: No edema - Results Results: Laboratory Results WBC 10.0 x10^3/uL (4.8-10.8) 06/12/18 05:50 RBC 4.77 10^6/uL (4.70-6.10) 06/12/18 05:50 Hgb 14.8 g/dL (14.0-18.0) 06/12/18 05:50 Hct 42.3 % (42.0-52.0) 06/12/18 05:50 MCV 88.6 fL (80.0-94.0) 06/12/18 05:50 MCH 31.0 pg (27.0-31.0) 06/12/18 05:50 MCHC 35.0 g/dL (32.0-36.0) 06/12/18 05:50 RDW 13.2 % (12.0-15.0) 06/12/18 05:50 Plt Count 176 10^3/uL (130-450) 06/12/18 05:50 MPV 9.2 fL (7.4-11.4) 06/12/18 05:50 Neut # (Auto) 5.9 10^3/uL (1.5-6.6) 06/12/18 05:50 Lymph # (Auto) 3.0 10^3/uL (1.5-3.5) 06/12/18 05:50 [place]mullen # (Auto) 1.0 10^3/uL (0.0-1.0) 06/12/18 05:50 Eos # (Auto) 0.1 10^3/uL (0.0-0.7) 06/12/18 05:50 Baso # (Auto) 0.0 10^3/uL (0.0-0.1) 06/12/18 05:50 Absolute Nucleated RBC 0.01 x10^3/uL 06/12/18 05:50 Nucleated RBC % 0.1 /100WBC 06/12/18 05:50 VBG pH 7.137 (7.31-7.41) L 06/11/18 20:00 VBG pCO2 27.4 mmHg (41-51) L 06/11/18 20:00 VBG pO2 52.5 mmHg (25-47) H 06/11/18 20:00 VBG HCO3 9.1 mmol/L (23-28) L 06/11/18 20:00 VBG Total CO2 9.9 mmol/L (24-29) L 06/11/18 20:00 VBG O2 Saturation 85.5 % (60-80) H 06/11/18 20:00 VBG Base Excess -18.4 mmol/L (-2 - +2) L 06/11/18 20:00 Sodium 131 mmol/L (135-145) L 06/12/18 13:47 Potassium 4.0 mmol/L (3.5-5.0) 06/12/18 13:47 Chloride 105 mmol/L (101-111) 06/12/18 13:47 Carbon Dioxide 18 mmol/L (21-32) L 06/12/18 13:47 Anion Gap 8.0 (6-13) 06/12/18 13:47 BUN 7 mg/dL (6-20) 06/12/18 13:47 Creatinine 0.6 mg/dL (0.6-1.2) 06/12/18 13:47 Estimated GFR (MDRD) 172 (>89) 06/12/18 13:47 Glucose 405 mg/dL (70-100) H 06/12/18 13:47 POC Whole Bld Glucose 262 mg/dL (70 - 100) H 06/12/18 11:14 Glycated Hemoglobin 14.4 % (4.6-6.2) H 06/11/18 20:00 Estim Average Glucose 367 (70-100) H 06/11/18 20:00 Lactic Acid 1.0 mmol/L (0.5-2.2) 06/11/18 23:40 Calcium 8.5 mg/dL (8.5-10.3) 06/12/18 13:47 Phosphorus 3.1 mg/dL (2.5-4.6) 06/12/18 05:50 Magnesium 1.9 mg/dL (1.7-2.8) 06/12/18 05:50 Total Bilirubin 1.1 mg/dL (0.2-1.0) H 06/12/18 05:50 AST 15 IU/L (10-42) 06/12/18 05:50 ALT 14 IU/L (10-60) 06/12/18 05:50 Alkaline Phosphatase 52 IU/L (42-121) 06/12/18 05:50 Troponin I < 0.04 ng/mL (<0.49) 06/12/18 13:47 Total Protein 6.0 g/dL (6.7-8.2) L 06/12/18 05:50 Albumin 3.9 g/dL (3.2-5.5) 06/12/18 05:50 Globulin 2.1 g/dL (2.1-4.2) 06/12/18 05:50 Albumin/Globulin Ratio 1.9 (1.0-2.2) 06/12/18 05:50 Lipase 20 U/L (22-51) L 06/11/18 17:44 Urine Color YELLOW 06/11/18 18:40 Urine Clarity CLEAR (CLEAR) 06/11/18 18:40 Urine pH 5.5 PH (5.0-7.5) 06/11/18 18:40 Ur Specific [place] >=1.030 (1.002-1.030) H 06/11/18 18:40 Urine Protein 30 mg/dL (NEGATIVE) H 06/11/18 18:40 Urine Glucose (UA) 500 mg/dL (NEGATIVE) H 06/11/18 18:40 Urine Ketones >=80 mg/dL (NEGATIVE) H 06/11/18 18:40 Urine Occult Blood TRACE-LYSE (NEGATIVE) 06/11/18 18:40 Urine Nitrite NEGATIVE (NEGATIVE) 06/11/18 18:40 Urine Bilirubin NEGATIVE (NEGATIVE) 06/11/18 18:40 Urine Urobilinogen 0.2 (NORMAL) E.U./dL (NORMAL) 06/11/18 18:40 Ur Leukocyte Esterase NEGATIVE (NEGATIVE) 06/11/18 18:40 Urine RBC 0-5 /HPF (0-5) 06/11/18 18:40 Urine WBC 0-3 /HPF (0-3) 06/11/18 18:40 Ur Squamous Epith Cells NONE SEEN (<= Few) 06/11/18 18:40 Urine Bacteria None Seen /HPF (None Seen) 06/11/18 18:40 Urine Casts 0-2 Hyaline Casts /LPF 06/11/18 18:40 Ur Microscopic Review INDICATED 06/11/18 18:40 Urine Culture Comments NOT INDICATED 06/11/18 18:40 Urine Opiates Screen NEGATIVE (NEGATIVE) 06/11/18 18:40 Ur Oxycodone Screen NEGATIVE (NEGATIVE) 06/11/18 18:40 Urine Methadone Screen NEGATIVE (NEGATIVE) 06/11/18 18:40 Ur Propoxyphene Screen NEGATIVE (NEGATIVE) 06/11/18 18:40 Ur Barbiturates Screen NEGATIVE (NEGATIVE) 06/11/18 18:40 Ur Tricyclics Screen NEGATIVE (NEGATIVE) 06/11/18 18:40 Ur Phencyclidine Scrn NEGATIVE (NEGATIVE) 06/11/18 18:40 Ur Amphetamine Screen NEGATIVE (NEGATIVE) 06/11/18 18:40 U Methamphetamines Scrn NEGATIVE (NEGATIVE) 06/11/18 18:40 U Benzodiazepines Scrn NEGATIVE (NEGATIVE) 06/11/18 18:40 Urine Cocaine Screen NEGATIVE (NEGATIVE) 06/11/18 18:40 U Cannabinoids Screen NEGATIVE (NEGATIVE) 06/11/18 18:40 Serum Ketones SMALL (NEGATIVE) H 06/12/18 13:47
[2018-06-12] MEDS: INSULIN ASPART 300 UNIT/3 ML PEN SUBQ SCH ×2 (16:59→20:46)
[2018-06-13] MEDS: SODIUM CHLORIDE FLUSH 0.9% 10 ML SYRINGE IVP SCH ×2 (02:50→08:26)
[2018-06-13] MEDS: NS W/20 MEQ KCL 1,000 ML IV SCH (02:51)
[2018-06-13 05:52] LABS: BASOPHILS % (AUTO) 0.1 %; EOSINOPHILS # (AUTO) 0.1 10^3/uL (0.0-0.7); EOSINOPHILS % (AUTO) 1.6 %; HGB - HEMOGLOBIN 14.5 g/dL (14.0-18.0); LYMPHOCYTES # (AUTO) 2.4 10^3/uL (1.5-3.5); MEAN CORPUSCULAR HEMOGLOBIN 31.4 pg (27.0-31.0); MEAN CORPUSCULAR HGB CONC 35.1 g/dL (32.0-36.0); MEAN CORPUSCULAR VOLUME 89.6 fL (80.0-94.0); MEAN PLATELET VOLUME 8.9 fL (7.4-11.4); MONOCYTES # (AUTO) 0.6 10^3/uL (0.0-1.0); MONOCYTES % (AUTO) 10.8 %; NEUTROPHILS # (AUTO) 2.3 10^3/uL (1.5-6.6); NEUTROPHILS % (AUTO) 43.5 %; PLT - PLATELET COUNT 144 10^3/uL (130-450); RED BLOOD COUNT 4.62 10^6/uL (4.70-6.10); RED CELL DISTRIBUTION WIDTH 13.4 % (12.0-15.0); WHITE BLOOD COUNT 5.4 x10^3/uL (4.8-10.8)
[2018-06-13 06:05] LABS: ALBUMIN 3.7 g/dL (3.2-5.5); ALBUMIN/GLOBULIN RATIO 1.9 (1.0-2.2); BILIRUBIN,TOTAL 0.6 mg/dL (0.2-1.0); CALCIUM 8.7 mg/dL (8.5-10.3); CREATININE 0.6 mg/dL (0.6-1.2); MAGNESIUM 1.8 mg/dL (1.7-2.8); PHOSPHORUS 4.2 mg/dL (2.5-4.6); TOTAL PROTEIN 5.7 g/dL (6.7-8.2)
[2018-06-13] MEDS: INSULIN ASPART 300 UNIT/3 ML PEN SUBQ SCH (07:40)
[2018-06-13] MEDS: FAMOTIDINE 20 MG TABLET PO SCH (08:26)
[2018-06-13] MEDS: POLYETHYLENE GLYCOL 3350 17 GM PACKET PO SCH (08:26)
[2018-06-13] MEDS ORDERED: NS W/20 MEQ KCL 1,000 ML IV SCH (10:48)
[2018-06-13] MEDS ORDERED: INSULIN ASPART 300 UNIT/3 ML PEN SUBQ SCH (12:00)
[2018-06-13 13:09] VITALS: BP 107/66
--- NOTE | 2018-06-13 13:40 | Discharge Plan ---
Discharge Plan Disposition: 01 Home, Self Care Condition: Stable Diet: Diabetic Activity Restrictions: No Restrictions Additional Instructions or Follow Up instructions: Decrease your evening Lantus Insulin to 25 Units. Continue the daytime Insulin coverage based on the glucose value you get from checking 3 times a day. Resume any other pre-hospital medications that you take. See your PCP in the next 1-2 weeks in follow-up. No Smoking: If you smoke, Please STOP! Call for help. Follow-up with: SIRI DAWSON [Primary Care Provider] -
[2018-06-13] MEDS ORDERED: INSULIN GLARGINE 300 UNIT/3 ML PEN SUBQ SCH (21:00)
--- NOTE | 2018-06-21 14:46 | DISCHARGE SUMMARY ---
Physician: Elisa Solano MD DATE OF ADMISSION: 06/11/2018 DATE OF DISCHARGE: 06/13/2018 HISTORY OF PRESENT ILLNESS: This is a 22-year-old white male with a history of diabetes on insulin, admitted after 1 and a half days of nausea, vomiting, and unable to keep food down. He presented to the emergency room and was found to have elevated glucose, elevated anion gap, acidotic serum pH, and was admitted to the ICU for management of DKA. HOSPITAL COURSE AND DISCHARGE DIAGNOSES 1. Diabetic ketoacidosis. Patient's serum glucose was over 500 and then dropped to 309 while in the emergency room, but he had an anion gap of 20, pH of 7.12, and positive small serum ketones. He was put on a DKA protocol with an insulin drip, IV saline, frequent glucose checks and serum ketones monitoring. Eventually, his diet was advanced from n.p.o. to clear liquids to a full diet. His insulin was changed to subcutaneous doses. His discharge was held up for 1 day because he developed hypoglycemia with glucose levels in the 56 range. He eventually was discharged and advised to resume his prior insulin management and diabetic diet. The cause of the DKA was felt to be from a viral gastroenteritis. 2. Hyponatremia. This was felt to be multifactorial: Pseudohyponatremia from an elevated glucose and also hyponatremia from hypovolemia. He was tachycardic on admission with a heart rate of 128 that improved with fluid replacement. His initial blood pressure was borderline low at 108. BP improved with saline administration into the 120s. His initial sodium of 132 improved to 143 at the time of discharge. 3. Elevated bilirubin. Patient had a bilirubin of 1.5 on admission, but normal liver function tests and alkaline phosphatase. He had a chest x-ray that was unremarkable and also had an abdominal ultrasound, which showed no intrahepatic ductal dilatation or stones, unremarkable liver, gallbladder, pancreas and kidneys, and spleen and aorta. The bilirubin may have been a phase reactant from his DKA and hypovolemia. LABS AND IMAGING: Reviewed and summarized above. ALLERGIES: NONE. MEDICATIONS AT TIME OF DISCHARGE 1. Lantus insulin 25 units sub-q q.p.m. 2. Sliding scale insulin a.c. and h.s. CONDITION AT DISCHARGE: Stable. PHYSICAL EXAMINATION VITAL SIGNS: Blood pressure 107/66, pulse of 60, respiratory rate 16, O2 saturation 99% on room air. HEENT: Unremarkable. NECK: Without JVD or carotid bruits. CHEST: Clear. HEART: Sounds normal. No murmur. ABDOMEN: Soft, nontender. Normal bowel sounds. No organomegaly. No guarding, no rebound. EXTREMITIES: Without edema. NEUROLOGIC: Intact. 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 CODE STATUS: FULL CODE. Time required to complete this entire discharge, dictation, chart review, review of the plan with the patient and parents: 30 minutes. cc: Anam Bone MD TD: 06/21/2018 12:40 MTDD
== END 2018-06-13 15:00 | disposition home or self-care (01) | DRG 638 ==
LOC: ED 17:18 → ICU 19:29
PROVIDERS: ADMIT Internal Medicine; ATTEND Internal Medicine
DX: E10.10 Type 1 diabetes mellitus with ketoacidosis without coma (principal); E87.1 Hypo-osmolality and hyponatremia; R17 Unspecified jaundice; E10.649 Type 1 diabetes mellitus with hypoglycemia without coma; A08.4 Viral intestinal infection, unspecified; E86.1 Hypovolemia; Z79.4 Long term (current) use of insulin
CPT/HCPCS: 36415; 71045; 76700; 80048; 80053; 80306; 81001; 81003; 82009; 82803; 82947; 83036; 83605; 83690; 83735; 84100; 84484; 85025; 87086; 87150; 93005; 96365; 96375; 99284; 99285

== ENCOUNTER 2018-11-12 20:57 | Inpatient (IN) | payer OTHER ==
[2018-11-12] MEDS ORDERED: SODIUM CHLORIDE 0.9% 1,000 ML IV STA (21:11)
[2018-11-12 21:22] LABS: BILIRUBIN,URINE NEGATIVE (NEGATIVE); GLUCOSE, URINE (UA) >=1000 mg/dL (NEGATIVE); KETONES,URINE (UA) >=80 mg/dL (NEGATIVE); LEUKOCYTE ESTERASE, URINE NEGATIVE (NEGATIVE); NITRITE,URINE NEGATIVE (NEGATIVE); OCCULT BLOOD,URINE TRACE-LYSE (NEGATIVE); PROTEIN,URINE TRACE mg/dL (NEGATIVE); UROBILINOGEN,URINE 0.2 (NORMAL) E.U./dL (NORMAL)
[2018-11-12 21:24] LABS: CLARITY,URINE CLEAR (CLEAR)
[2018-11-12 21:30] LABS: BASOPHILS % (AUTO) 0.6 %; HGB - HEMOGLOBIN 16.6 g/dL (14.0-18.0); LYMPHOCYTES % (AUTO) 9.8 %; MEAN CORPUSCULAR HEMOGLOBIN 30.3 pg (27.0-31.0); MEAN CORPUSCULAR VOLUME 94.9 fL (80.0-94.0); MEAN PLATELET VOLUME 9.4 fL (7.4-11.4); MONOCYTES % (AUTO) 4.1 %; NEUTROPHILS % (AUTO) 85.5 %; PLT - PLATELET COUNT 288 10^3/uL (130-450); RED BLOOD COUNT 5.49 10^6/uL (4.70-6.10); RED CELL DISTRIBUTION WIDTH 13.2 % (12.0-15.0); WHITE BLOOD COUNT 28.2 x10^3/uL (4.8-10.8)
[2018-11-12 21:31] LABS: VBG BASE EXCESS -20.6 mmol/L (-2 - +2); VBG PCO2 39.8 mmHg (41-51); VBG PH 7.019 (7.31-7.41); VBG PO2 47.5 mmHg (25-47); VBG TOTAL CO2 11.2 mmol/L (24-29)
[2018-11-12 21:32] LABS: ABNORMAL LYMPHS % (MANUAL) 0 %
[2018-11-12 21:36] LABS: KETONES, SERUM (ACETEST) SMALL (NEGATIVE)
[2018-11-12] MEDS ORDERED: INSULIN REGULAR HUMAN 100 UNIT/1 ML 10 ML MDV SUBQ STA (21:38)
[2018-11-12] MEDS ORDERED: LACTATED RINGERS 2,000 ML IV ONE (21:38)
[2018-11-12] MEDS ORDERED: INSULIN GLARGINE 300 UNIT/3 ML PEN SUBQ STA (21:44)
[2018-11-12 21:45] LABS: BAND NEUTROPHILS % (MANUAL) 17 %; DIFFERENTIAL COMMENT MANUAL DIFFERENTIAL; LYMPHOCYTES # (MANUAL) 2.5 10^3/uL (1.5-3.5); LYMPHOCYTES % (MANUAL) 9 %; MONOCYTES # (MANUAL) 1.1 10^3/uL (0.0-1.0); NEUTROPHILS # (MANUAL) 24.5 10^3/uL (1.5-6.6); NEUTROPHILS % (MANUAL) 70 %; PLATELET ESTIMATE, MANUAL NORMAL (130-450,000) (NORMAL); PLATELET MORPHOLOGY NORMAL APPEARANCE (NORMAL); RBC MORPHOLOGY (MULTIPLE) NORMAL APPEARANCE (NORMAL)
[2018-11-12] MEDS ORDERED: CEFEPIME 1 GM in SODIUM CHLORIDE 0.9% MINIBAG 100 ML IV STA (21:45)
--- NOTE | 2018-11-12 21:46 | ED Physician Documentation ---
History of Present Illness - Stated complaint Stated Complaint: DIABETIC ISSUES - Chief complaint Chief Complaint: Abd Pain - Additonal information Additional information: 22-year-old male with a history of insulin-dependent diabetes presents the emergency department with worsening symptoms over the past day. The patient reports taking his medication as prescribed. The patient denies any fever or infectious symptoms. The patient reports generally feeling unwell similar to episodes of DKA in the past. Symptoms are described as severe. No relieving factors. No triggering factors Review of Systems Constitutional: reports: Fatigue. denies: Fever, Chills Eyes: denies: Discharge Ears: denies: Ear pain Nose: denies: Congestion Throat: denies: Sore throat Cardiac: denies: Chest pain / pressure Respiratory: denies: Cough GI: denies: Abdominal Pain : denies: Dysuria Skin: denies: Rash Musculoskeletal: denies: Neck pain Neurologic: reports: Generalized weakness PD PAST MEDICAL HISTORY - Past Medical History Past Medical History: Yes Cardiovascular: None Respiratory: None Neuro: None Endocrine/Autoimmune: Type 1 diabetes GI: None : None HEENT: None Psych: None Musculoskeletal: None Derm: None - Past Surgical History Past Surgical History: No - Present Medications Home Medications: Ambulatory Orders Medication Instructions Recorded Confirmed Insulin Glargine [Lantus Solostar] 25 unit SQ QPM 06/11/18 06/12/18 - Allergies Allergies/Adverse Reactions: Allergies Allergy/AdvReac Type Severity Reaction Status Date / Time No Known Drug Allergies Allergy Verified 06/11/18 17:29 - Social History Does the pt smoke?: No Smoking Status: Never smoker Does the pt drink ETOH?: No Does the pt have substance abuse?: No - Immunizations Immunizations are current?: Yes - POLST Patient has POLST: No POLST Status: Full Code PD ED PE NORMAL - General General: Alert and oriented X 3. No: No acute distress (22-year-old ill- appearing male who appears severely ill and uncomfortable) - HEENT HEENT: Atraumatic, PERRL, EOMI, Ears normal, Pharynx benign - Neck Neck: Supple, no meningeal sign - Cardiac Cardiac: Strong equal pulses. No: RRR (Regular tachycardia) - Respiratory Respiratory: No respiratory distress, Clear bilaterally - Abdomen Abdomen: Soft, Non tender - Derm Derm: Normal color - Extremities Extremities: No deformity - Neuro Neuro: Alert and oriented X 3, Normal speech - Psych Psych: Normal affect Results - Vitals Vitals: Vital Signs - 24 hr 11/12/18 11/12/18 11/12/18 21:02 21:06 21:37 Temperature 36.4 C L 36.5 C Heart Rate 125 H 125 H 121 H Respiratory 18 18 20 Rate Blood Pressure 113/83 H 113/83 H 142/75 H O2 Saturation 100 100 100 Oxygen O2 Source Room air - Labs Labs: Laboratory Tests 11/12/18 11/12/18 11/12/18 21:04 21:05 21:10 WBC 28.2 H RBC 5.49 Hgb 16.6 Hct 52.0 MCV 94.9 H MCH 30.3 MCHC 32.0 RDW 13.2 Plt Count 288 MPV 9.4 Neut # (Auto) Not Reportable Lymph # (Auto) Not Reportable [place] # (Auto) Not Reportable Eos # (Auto) Not Reportable Baso # (Auto) Not Reportable Absolute Nucleated RBC Not Reportable Total Counted 100 Band Neuts % (Manual) 17 H Abnorm Lymph % (Manual) 0 Nucleated RBC % Not Reportable Neutrophils # (Manual) 24.5 H Lymphocytes # (Manual) 2.5 Monocytes # (Manual) 1.1 H Eosinophils # (Manual) 0.0 Basophils # (Manual) 0.0 Differential Comment MANUAL DIFFERENTIAL Manual Slide Review Indicated WBC Morphology NORMAL APPEARANCE Platelet Estimate NORMAL (130-450,000) Platelet Morphology NORMAL APPEARANCE RBC Morph Micro Appear NORMAL APPEARANCE VBG pH VBG pCO2 VBG pO2 VBG HCO3 VBG Total CO2 VBG O2 Saturation VBG Base Excess Sodium Potassium Chloride Carbon Dioxide Anion Gap BUN Creatinine Estimated GFR (MDRD) Glucose POC Whole Bld Glucose 422 H Lactic Acid Calcium Total Bilirubin AST ALT Alkaline Phosphatase Total Protein Albumin Globulin Albumin/Globulin Ratio Lipase Urine Color YELLOW Urine Clarity CLEAR Urine pH 5.0 Ur Specific [place] >=1.030 H Urine Protein TRACE Urine Glucose (UA) >=1000 H Urine Ketones >=80 H Urine Occult Blood TRACE-LYSE Urine Nitrite NEGATIVE Urine Bilirubin NEGATIVE Urine Urobilinogen 0.2 (NORMAL) Ur Leukocyte Esterase NEGATIVE Ur Microscopic Review NOT INDICATED Urine Culture Comments NOT INDICATED Salicylates Acetaminophen Ethyl Alcohol Serum Ketones 11/12/18 11/12/18 11/12/18 21:10 21:10 21:10 WBC RBC Hgb Hct MCV MCH MCHC RDW Plt Count MPV Neut # (Auto) Lymph # (Auto) [place] # (Auto) Eos # (Auto) Baso # (Auto) Absolute Nucleated RBC Total Counted Band Neuts % (Manual) Abnorm Lymph % (Manual) Nucleated RBC % Neutrophils # (Manual) Lymphocytes # (Manual) Monocytes # (Manual) Eosinophils # (Manual) Basophils # (Manual) Differential Comment Manual Slide Review WBC Morphology Platelet Estimate Platelet Morphology RBC Morph Micro Appear VBG pH 7.019 L VBG pCO2 39.8 L VBG pO2 47.5 H VBG HCO3 10.0 L VBG Total CO2 11.2 L VBG O2 Saturation 71.5 VBG Base Excess -20.6 L Sodium 133 L Potassium 4.9 Chloride 96 L Carbon Dioxide 11 L* Anion Gap 26.0 H BUN 19 Creatinine 1.1 Estimated GFR (MDRD) 85 L Glucose 481 H POC Whole Bld Glucose Lactic Acid 6.7 H* Calcium 9.7 Total Bilirubin 1.9 H AST 39 ALT 35 Alkaline Phosphatase 81 Total Protein 8.8 H Albumin 5.8 H Globulin 3.0 Albumin/Globulin Ratio 1.9 Lipase 17 L Urine Color Urine Clarity Urine pH Ur Specific [place] Urine Protein Urine Glucose (UA) Urine Ketones Urine Occult Blood Urine Nitrite Urine Bilirubin Urine Urobilinogen Ur Leukocyte Esterase Ur Microscopic Review Urine Culture Comments Salicylates Acetaminophen Ethyl Alcohol Serum Ketones SMALL H 11/12/18 21:16 WBC RBC Hgb Hct MCV MCH MCHC RDW Plt Count MPV Neut # (Auto) Lymph # (Auto) [place] # (Auto) Eos # (Auto) Baso # (Auto) Absolute Nucleated RBC Total Counted Band Neuts % (Manual) Abnorm Lymph % (Manual) Nucleated RBC % Neutrophils # (Manual) Lymphocytes # (Manual) Monocytes # (Manual) Eosinophils # (Manual) Basophils # (Manual) Differential Comment Manual Slide Review WBC Morphology Platelet Estimate Platelet Morphology RBC Morph Micro Appear VBG pH VBG pCO2 VBG pO2 VBG HCO3 VBG Total CO2 VBG O2 Saturation VBG Base Excess Sodium Potassium Chloride Carbon Dioxide Anion Gap BUN Creatinine Estimated GFR (MDRD) Glucose POC Whole Bld Glucose Lactic Acid Calcium Total Bilirubin AST ALT Alkaline Phosphatase Total Protein Albumin Globulin Albumin/Globulin Ratio Lipase Urine Color Urine Clarity Urine pH Ur Specific [place] Urine Protein Urine Glucose (UA) Urine Ketones Urine Occult Blood Urine Nitrite Urine Bilirubin Urine Urobilinogen Ur Leukocyte Esterase Ur Microscopic Review Urine Culture Comments Salicylates < 6.0 Acetaminophen < 10 L Ethyl Alcohol < 5.0 Serum Ketones PD MEDICAL DECISION MAKING - ED course ED course: The patient is in severe DKA,The patient is in severe DKA, prior admission to the hospital for ongoing resuscitation. In the emergency department the patient was resuscitated with 1 L of normal saline, 2 L of lactated Ringer's, and insulin drip and the patient was also given his nighttime dose of Lantus. The patient has a significantly elevated white blood cell count, the patient has no report or complaints of infectious symptoms but given the significant elevated white blood cell count empiric antibiotics will be given. The patient's lactate is elevated but is unclear as to whether this is secondary to his DKA or possibly an infectious etiology. The plan was discussed with the hospitalist Dr. Harden Who accepts the patient onto his service. The patient and family agree to the plan - Critical Care Time(min): 35 Time Includes: Direct patient care, Review records, Document care, Coordinate care, Medical consult Data interpretation: Labs, ABG (VBG) Procedures included in critical care time: Peripheral IV Departure - Departure Disposition: 66 [facility] DC/Xfer Clinical Impression: DKA (diabetic ketoacidoses) Qualifiers: Diabetes mellitus type: other specified (including VINAYAK) Diabetes mellitus complication detail: without coma Qualified Code(s): E13.10 - Other specified diabetes mellitus with ketoacidosis without coma Leukocytosis Qualifiers: Leukocytosis type: bandemia Qualified Code(s): D72.825 - Bandemia Condition: Critical
[2018-11-12 21:53] LABS: ALBUMIN 5.8 g/dL (3.2-5.5); ALBUMIN/GLOBULIN RATIO 1.9 (1.0-2.2); ALKALINE PHOSPHATASE 81 IU/L (42-121); ALT ALANINE AMINOTRANSFERASE 35 IU/L (10-60); AST ASPARTATE AMINOTRANSFERASE 39 IU/L (10-42); BILIRUBIN,TOTAL 1.9 mg/dL (0.2-1.0); BUN - BLOOD UREA NITROGEN 19 mg/dL (6-20); CALCIUM 9.7 mg/dL (8.5-10.3); CHLORIDE 96 mmol/L (101-111); CREATININE 1.1 mg/dL (0.6-1.2); GFR - MDRD 85 (>89); GLUCOSE 481 mg/dL (70-100); LIPASE 17 U/L (22-51); SODIUM 133 mmol/L (135-145); TOTAL PROTEIN 8.8 g/dL (6.7-8.2)
[2018-11-12 21:55] LABS: CARBON DIOXIDE - CO2 11 mmol/L (21-32)
[2018-11-12] MEDS ORDERED: INSULIN REGULAR HUMAN 100 UNIT in SODIUM CHLORIDE 0.9% 100ML 99 ML IV SCH ×2 (22:00→23:00)
[2018-11-12] MEDS ORDERED: INSULIN REGULAR HUMAN 100 UNIT/1 ML 10 ML MDV ONE (22:11)
[2018-11-12 22:18] LABS: ACETAMINOPHEN < 10 ug/mL (10-30); SALICYLATE < 6.0 mg/dL
[2018-11-12] MEDS ORDERED: ONDANSETRON 4 MG/2 ML VIAL IVP PRN (22:34)
[2018-11-12] MEDS ORDERED: DEXTROSE 5%-0.45% NACL 1,000 ML IV SCH (23:00)
[2018-11-12] MEDS ORDERED: SODIUM CHLORIDE 0.9% 1,000 ML IV SCH (23:00)
[2018-11-12 23:08] LABS: VBG BASE EXCESS -20.7 mmol/L (-2 - +2); VBG PCO2 25.8 mmHg (41-51); VBG PH 7.09 (7.31-7.41); VBG PO2 72.6 mmHg (25-47); VBG TOTAL CO2 8.4 mmol/L (24-29)
--- NOTE | 2018-11-12 23:09 | HISTORY & PHYSICAL EXAMINATION ---
Chief Complaint - Chief Complaint Chief Complaint: nausea, vomiting, cloudiness History of Present Illness - Admitted From Admitted From:: [facility] ED - History Obtained From Records Reviewed: yes History obtained from: patient - History of Present Illness HPI Comment/Other: Patient is a 22 y/o male who presented to the ED with complain of nausea, vomiting and feeling 'cloudy'. Onset of his symptoms was around 3 pm today. He denies fever or chills. No chest pain, abdominal pain, wound or cuts. He denies night sweats or weight loss. He has DM I initially diagnosed in March 2018. At the time of his initial diagnosis and another time in May 2018 he was in DKA. Since diagnosis he has been on 15 units lantus bid and a sliding scale i nsulin. His last HgA1C was 11. He follows with Dr Topher Tellez (engineering librarian) at [facility]. At the time of my visit he was fully awake, alert and oriented X 3. He readily provided this history. He did not appear to be in any pain. His parents were at bedside. In the ED he was found to have a blood glucose level of 400 with ketones in his urine and an anion gap of 26. His WBC was 28 and lactic acid 6.7. As a result he is being admitted for further treatment. History - Past Medical History Cardiovascular: reports: None Respiratory: reports: None Neuro: reports: None Endocrine/Autoimmune: reports: Type 1 diabetes GI: reports: None : reports: None HEENT: reports: None Psych: reports: None Musculoskeletal: reports: None Derm: reports: None MRSA Hx?: No - Family & Social History Family History Comment/Other: NONE - Substance History Use: Uses substance without health or social issues: NONE - POLST Patient has POLST: Yes POLST Status: Full Code Meds/Allgy - Home Medications Home Medications: Ambulatory Orders Medication Instructions Recorded Confirmed Insulin Glargine [Lantus Solostar] 25 unit SQ QPM 06/11/18 06/12/18 - Allergies Allergies/Adverse Reactions: Allergies Allergy/AdvReac Type Severity Reaction Status Date / Time No Known Drug Allergies Allergy Verified 06/11/18 17:29 Review of Systems - Constitutional Constitutional: reports: Fatigue. denies: Fever, Chills - Eyes Eyes: denies: Blurred vision, Vision loss, Dipolpia - Ears, Nose & Throat Ears, Nose & Throat: denies: Hearing loss, Nasal pain, Sore throat - Cardiovascular Cariovascular: denies: Palpitations, Chest pain, Edema, Lightheadedness - Respiratory Respiratory: denies: Cough, Wheezing, SOB at rest, SOB with exertion - Gastrointestinal Gastrointestinal: reports: Nausea, Vomiting. denies: Abdominal pain, Abdominal distention, Diarrhea, Black stools, Bloody stools - Genitourinary Genitourinary: denies: Dysuria, Frequency, Urgency, Hematuria - Musculoskeletal Musculoskeletal: denies: Muscle pain, Back pain, Muscle aches, Stiffness - Integumentary Integumentary: denies: Rash, Pruritis, Lesions - Neurological Neurological: denies: General weakness, Headache, Dizziness - Psychiatric Psychiatric: denies: Depression, Anxiety - Endocrine Endocrine: denies: Polyuria, Polydypsia, Polyphagia, Intolerance to cold, Intolerance to heat - Hematologic/Lymphatic Hematologic/Lymphatic: denies: Anemia, Petechiae Prior Level of Functionality: Patient is completely independent of activities of daily living Exam - Vital Signs Reviewed Vital Signs: Yes Vital Signs: Vital Signs x48h Temp Pulse Resp BP Pulse Ox 11/12/18 21:37 121 H 20 142/75 H 100 11/12/18 21:06 36.5 C 125 H 18 113/83 H 100 11/12/18 21:02 36.4 C L 125 H 18 113/83 H 100 - Physical Exam General Appearance: positive: Alert, Mild distress. negative: Lethargic Eyes Bilateral: positive: Normal inspection ENT: positive: ENT inspection nml Neck: positive: Nml inspection, No JVD, Trachea midline Respiratory: positive: Chest non-tender, No respiratory distress, Breath sounds nml. negative: Wheezes, Rales, Rhonchi Cardiovascular: positive: Tachycardia. negative: No murmur Abdomen: positive: Non-tender, No organomegaly, Nml bowel sounds, No distention. negative: Guarding, Rebound Back: positive: Nml inspection Skin: positive: Color nml, No rash, Warm, Dry Neurologic/Psychiatric: positive: Oriented x3 Sepsis Event Note (H) - Sepsis Criteria Sepsis Criteria: Recorded Heart Rate greater than 90 bpm, WBC count greater than 12,000 or less than 4000 Conclusion/Plan - Problem List (1) DKA (diabetic ketoacidoses) Conclusion/Plan: Patient admitted to the ICU DKA protocol initiated Patient reports compliance with current insulin regimen. In which case DKA trigger is likely due to insufficient insulin Thus he will need to follow up with engineering librarian upon discharge for adjustment of his insulin dose to meet his need. Will consult head knitting machine fixer Qualifiers: Diabetes mellitus type: other specified (including VINAYAK) Diabetes mellitus complication detail: without coma Qualified Code(s): E13.10 - Other specified diabetes mellitus with ketoacidosis without coma (2) Leukocytosis Conclusion/Plan: Etiology undetermined ? Reactive vs Infectious Blood cultures drawn. UA, CR negative No wounds or lesions. UDS pending Patient given a dose of cefepime in the ED Will continue empirically and add vancomycin Lactic acid 6.7. Will trend Qualifiers: Leukocytosis type: bandemia Qualified Code(s): D72.825 - Bandemia (3) Lactic acidosis Conclusion/Plan: ? 2/2 DKA and/or Infection On DKA protocol. Blood cultures pending On empiric antibiotics Anoop trend lactic acid - Lab Results Tod Bones: 11/12/18 21:10 11/12/18 21:10 Core Measures - Anticipated LOS I expect patient to be DC'd or transferred within 96 hours.: Yes - DVT/VTE - Prophylaxis VTE/DVT Device ordered at admit?: Yes VTE/DVT Prophylaxis med ordered at admit?: Yes
[2018-11-12 23:15] LABS: MAGNESIUM 1.9 mg/dL (1.7-2.8)
[2018-11-12] MEDS ORDERED: VANCOMYCIN PER PHARMACY 0.001 GM in SODIUM CHLORIDE 0.9% 250 ML IV PRN (23:45)
[2018-11-12 23:54] LABS: HB2 TOTAL 17.1 g/dL; HEMOGLOBIN A1C 2.07 g/dL; HEMOGLOBIN A1C % 13.2 % (4.6-6.2)
--- NOTE | 2018-11-13 00:38 | ANESTHESIA PROCEDURE NOTE ---
Anesth Central Line Template - Central Line Central Line Preparation: Consent Obtained, Time out completed, Ultrasound used, Sterile prep and drape Central line location: Right IJ Central line type: Triple lumen Central line catheter tip site resides: Superior vena cava (SVC) Central line aftercare: Secured, No complications, Bundle checklist complete, Pt tolerated well
[2018-11-13] MEDS ORDERED: VANCOMYCIN INJ 1.25 GM in SODIUM CHLORIDE 0.9% 250 ML IV SCH (01:00)
[2018-11-13 01:02] LABS: MUDS CUTOFF CONCENTRATIONS CUTOFF CONC BELOW:
--- NOTE | 2018-11-13 01:05 | XRAY Report ---
Reason: Line placement Procedure Date: 11/13/2018 Accession Number: [id number] / [id number] Procedure: XR - Chest for Line Placement CPT Code: FULL RESULT: EXAM: CHEST RADIOGRAPHY EXAM DATE: 11/13/2018 12:35 AM. CLINICAL HISTORY: Line placement. COMPARISON: CHEST 1 VIEW 06/11/2018 8:03 PM. TECHNIQUE: 1 view. FINDINGS: Lungs/Pleura: No focal opacities evident. No pleural effusion. No pneumothorax. Mediastinum: Within exam limitations, the cardiomediastinal contour is normal. Other: Right jugular central venous catheter terminating in the distal superior vena cava. IMPRESSION: Right jugular central venous catheter terminating in the distal superior vena cava. RADIA
[2018-11-13] MEDS: SODIUM CHLORIDE FLUSH 0.9% 10 ML SYRINGE IVP SCH ×5 (01:24→20:49)
[2018-11-13 01:52] LABS: CALCIUM 8.6 mg/dL (8.5-10.3); CREATININE 0.8 mg/dL (0.6-1.2); MAGNESIUM 1.9 mg/dL (1.7-2.8)
[2018-11-13] MEDS: SODIUM CHLORIDE FLUSH 0.9% 10 ML SYRINGE IVP PRN ×4 (02:09→20:49)
[2018-11-13 02:22] LABS: CALCIUM 8.6 mg/dL (8.5-10.3); CREATININE 0.8 mg/dL (0.6-1.2)
[2018-11-13] MEDS ORDERED: D5.45NS W/20 MEQ KCL 1,000 ML IV SCH ×2 (04:00→12:24)
[2018-11-13] MEDS: INSULIN GLARGINE 300 UNIT/3 ML PEN SUBQ SCH ×2 (04:14→20:48)
[2018-11-13 04:17] LABS: BASOPHILS # (AUTO) 0.1 10^3/uL (0.0-0.1); BASOPHILS % (AUTO) 0.3 %; HGB - HEMOGLOBIN 13.4 g/dL (14.0-18.0); LYMPHOCYTES # (AUTO) 1.7 10^3/uL (1.5-3.5); LYMPHOCYTES % (AUTO) 7.9 %; MEAN CORPUSCULAR HEMOGLOBIN 30.6 pg (27.0-31.0); MEAN CORPUSCULAR HGB CONC 33.9 g/dL (32.0-36.0); MEAN PLATELET VOLUME 8.4 fL (7.4-11.4); MONOCYTES # (AUTO) 1.4 10^3/uL (0.0-1.0); MONOCYTES % (AUTO) 6.5 %; NEUTROPHILS # (AUTO) 18.3 10^3/uL (1.5-6.6); NEUTROPHILS % (AUTO) 85.3 %; PLT - PLATELET COUNT 210 10^3/uL (130-450); WHITE BLOOD COUNT 21.4 x10^3/uL (4.8-10.8)
[2018-11-13 04:26] LABS: CALCIUM 8.6 mg/dL (8.5-10.3); CREATININE 0.7 mg/dL (0.6-1.2)
[2018-11-13 04:36] LABS: BILIRUBIN,URINE NEGATIVE (NEGATIVE); GLUCOSE, URINE (UA) 500 mg/dL (NEGATIVE); KETONES,URINE (UA) >=80 mg/dL (NEGATIVE); LEUKOCYTE ESTERASE, URINE NEGATIVE (NEGATIVE); NITRITE,URINE NEGATIVE (NEGATIVE); OCCULT BLOOD,URINE NEGATIVE (NEGATIVE); PROTEIN,URINE NEGATIVE (NEGATIVE); UROBILINOGEN,URINE 0.2 (NORMAL) E.U./dL (NORMAL)
[2018-11-13 04:48] LABS: CLARITY,URINE CLEAR (CLEAR)
[2018-11-13 04:49] LABS: AMPHETAMINE SCREEN,URINE NEGATIVE (NEGATIVE); BENZODIAZEPINES SCREEN, URINE NEGATIVE (NEGATIVE); COCAINE SCREEN URINE NEGATIVE (NEGATIVE); METHADONE SCREEN, URINE NEGATIVE (NEGATIVE); METHAMPHETAMINES SCREEN, URINE NEGATIVE (NEGATIVE); OPIATE SCREEN, URINE NEGATIVE (NEGATIVE); OXYCODONE SCREEN, URINE NEGATIVE (NEGATIVE); PROPOXYPHENE SCREEN, URINE NEGATIVE (NEGATIVE); TRICYCLIC ANTIDEPRESSANT,URINE NEGATIVE (NEGATIVE)
[2018-11-13] MEDS: INSULIN ASPART 300 UNIT/3 ML PEN SUBQ SCH ×4 (08:21→20:48)
[2018-11-13] MEDS: ENOXAPARIN 40 MG/0.4 ML SYRINGE SUBQ SCH (08:22)
[2018-11-13] MEDS: VANCOMYCIN INJ 1 GM in SODIUM CHLORIDE 0.9% 250 ML IV SCH ×2 (08:26→17:02)
[2018-11-13] MEDS: CEFEPIME 2 GM in SODIUM CHLORIDE 0.9% MINIBAG 100 ML IV SCH ×2 (08:42→20:47)
[2018-11-13 08:51] LABS: HB2 TOTAL 17.2 g/dL; HEMOGLOBIN A1C 2.07 g/dL; HEMOGLOBIN A1C % 13.2 % (4.6-6.2)
--- NOTE | 2018-11-13 14:24 | PROVIDER PROGRESS NOTE ---
Assessment/Plan - Problem List (1) Diabetes mellitus with hyperglycemia Assessment/Plan: Adjust Insulin, remain on vcarb controlled diet. His Dx was in January with HbA1c 14, on this admission the HbA1c was 13, suggesting minimal improvement in DM control, despite seeing an Telecommunications Administrator. He says he has new Insurance and will be starting with a new Telecommunications Administrator soon. (2) Leukocytosis Qualifiers: Leukocytosis type: bandemia Qualified Code(s): D72.825 - Bandemia Assessment/Plan: No signs of infection, no needle epps on skin and patient denoes illicit behavior, to explain the current elevated WBC and DKA event. He states that the other 2 times his DKA also occurred without an obvious precipitating cause. Continue empiric iv antibiotics. Monitor CBC daily. Await blood culture results. If they are neg after 48 hours, will [facility] patient home, possibly tomorrow. (3) DKA (diabetic ketoacidoses) Qualifiers: Diabetes mellitus type: other specified (including VINAYAK) Diabetes mellitus complication detail: without coma Qualified Code(s): E13.10 - Other specified diabetes mellitus with ketoacidosis without coma Assessment/Plan: Resolved - Current Meds Current Meds: Current Medications Generic Name Dose Route Start Last Admin Trade Name Freq PRN Reason Stop Dose Admin Enoxaparin Sodium 40 mg 11/13/18 09:00 11/13/18 08:22 Lovenox SUBQ 40 mg DAILY WILY Administration Cefepime HCl 2 gm/ Sodium 100 mls @ 200 mls/hr 11/13/18 09:00 11/13/18 09:15 Chloride IV Infused BID WILY Infusion Vancomycin HCl 1 gm/ Sodium 250 mls @ 167 mls/hr 11/13/18 09:00 11/13/18 10:15 Chloride IV Infused Q8H WILY Infusion Potassium Chloride/Dextrose/Sod Cl 1,000 mls @ 40 mls/hr 11/13/18 12:24 11/13/18 12:30 D5.45ns W/20 Meq Kcl IV 11/13/18 18:00 40 mls/hr .Q25H WILY Administration Insulin Aspart 1 - 9 unit 11/13/18 08:00 11/13/18 12:22 Novolog SUBQ 5 unit 0800,1200,1700,2100 WILY Administration Protocol Insulin Glargine 20 unit 11/13/18 03:42 11/13/18 04:14 Katrin Simon SUBQ 20 unit QPM WILY Administration Sodium Chloride 10 ml 11/13/18 01:00 11/13/18 02:07 Normal Saline Flush 0.9% IVP 10 ml 0100,0900,1700 WILY Administration Sodium Chloride 10 ml 11/12/18 22:34 11/13/18 04:15 Normal Saline Flush 0.9% IVP 20 ml PRN PRN Administration NEEDED PER PROVIDER ORDERS - Lab Result Fish Bone Diagrams: 11/13/18 04:00 11/13/18 04:00 - Additional Planning My Orders: My Active Orders 11/13/18 11:53 Transfer [Admit \ Transfer \ Status] [RC] .ONCE 11/13/18 12:24 D5.45ns W/20 Meq KCl 1,000 ml IV 40 mls/hr Subjective - Subjective Patient Reports: Feeling Better, Resting Comfortably Objective Vital Signs: Vital Signs - 24 hr 11/12/18 11/12/18 11/12/18 21:02 21:06 21:37 Temperature 36.4 C L 36.5 C Heart Rate 125 H 125 H 121 H Heart Rate [ Monitoring electrodes] Respiratory 18 18 20 Rate Blood Pressure 113/83 H 113/83 H 142/75 H Blood Pressure [Right Brachial artery] O2 Saturation 100 100 100 11/13/18 11/13/18 11/13/18 07:00 08:00 09:00 Temperature Heart Rate Heart Rate [ 84 99 92 Monitoring electrodes] Respiratory 18 14 19 Rate Blood Pressure Blood Pressure 113/60 116/57 L 108/50 L [Right Brachial artery] O2 Saturation 100 100 100 11/13/18 11/13/18 11/13/18 10:00 11:00 11:59 Temperature 37.1 C Heart Rate Heart Rate [ 91 67 Monitoring electrodes] Respiratory 17 14 Rate Blood Pressure Blood Pressure 109/55 L 101/57 L [Right Brachial artery] O2 Saturation 100 98 11/13/18 12:00 Temperature Heart Rate Heart Rate [ 53 L Monitoring electrodes] Respiratory 16 Rate Blood Pressure Blood Pressure 112/68 [Right Brachial artery] O2 Saturation 100 Oxygen O2 Source Room air I&O (Last 24 Hrs): Intake and Output Totals x24h 11/11/18 11/12/18 11/13/18 23:59 23:59 23:59 Intake Total 1100 4049.408 Output Total 100 850 Balance 1000 3199.408 General: Alert, Oriented x3 HEENT: Mucous membr. moist/pink Neck: Supple Neuro: Non Focal Cardiovascular: Regular rate, No murmurs Respiratory: No respiratory distress, Breath sounds nml Abdomen: Soft, No tenderness Extremities: No edema - Results Results: Laboratory Results WBC 21.4 x10^3/uL (4.8-10.8) H 11/13/18 04:00 RBC 4.40 10^6/uL (4.70-6.10) L 11/13/18 04:00 Hgb 13.4 g/dL (14.0-18.0) L 11/13/18 04:00 Hct 39.6 % (42.0-52.0) L 11/13/18 04:00 MCV 90.0 fL (80.0-94.0) 11/13/18 04:00 MCH 30.6 pg (27.0-31.0) 11/13/18 04:00 MCHC 33.9 g/dL (32.0-36.0) 11/13/18 04:00 RDW 13.0 % (12.0-15.0) 11/13/18 04:00 Plt Count 210 10^3/uL (130-450) 11/13/18 04:00 MPV 8.4 fL (7.4-11.4) 11/13/18 04:00 Neut # (Auto) 18.3 10^3/uL (1.5-6.6) H 11/13/18 04:00 Lymph # (Auto) 1.7 10^3/uL (1.5-3.5) 11/13/18 04:00 [place] # (Auto) 1.4 10^3/uL (0.0-1.0) H 11/13/18 04:00 Eos # (Auto) 0.0 10^3/uL (0.0-0.7) 11/13/18 04:00 Baso # (Auto) 0.1 10^3/uL (0.0-0.1) 11/13/18 04:00 Absolute Nucleated RBC 0.00 x10^3/uL 11/13/18 04:00 Total Counted 100 11/12/18 21:10 Band Neuts % (Manual) 17 % (0-10) H 11/12/18 21:10 Abnorm Lymph % (Manual) 0 % 11/12/18 21:10 Nucleated RBC % 0.0 /100WBC 11/13/18 04:00 Neutrophils # (Manual) 24.5 10^3/uL (1.5-6.6) H 11/12/18 21:10 Lymphocytes # (Manual) 2.5 10^3/uL (1.5-3.5) 11/12/18 21:10 Monocytes # (Manual) 1.1 10^3/uL (0.0-1.0) H 11/12/18 21:10 Eosinophils # (Manual) 0.0 10^3/uL (0-0.7) 11/12/18 21:10 Basophils # (Manual) 0.0 10^3/uL (0-0.1) 11/12/18 21:10 Differential Comment MANUAL DIFFERENTIAL 11/12/18 21:10 Manual Slide Review Indicated 11/12/18 21:10 WBC Morphology NORMAL APPEARANCE (NORMAL) 11/12/18 21:10 Platelet Estimate NORMAL (130-450,000) (NORMAL) 11/12/18 21:10 Platelet Morphology NORMAL APPEARANCE (NORMAL) 11/12/18 21:10 RBC Morph Micro Appear NORMAL APPEARANCE (NORMAL) 11/12/18 21:10 VBG pH 7.090 (7.31-7.41) L 11/12/18 23:00 VBG pCO2 25.8 mmHg (41-51) L 11/12/18 23:00 VBG pO2 72.6 mmHg (25-47) H 11/12/18 23:00 VBG HCO3 7.7 mmol/L (23-28) L 11/12/18 23:00 VBG Total CO2 8.4 mmol/L (24-29) L 11/12/18 23:00 VBG O2 Saturation 91.5 % (60-80) H 11/12/18 23:00 VBG Base Excess -20.7 mmol/L (-2 - +2) L 11/12/18 23:00 Sodium 135 mmol/L (135-145) 11/13/18 04:00 Potassium 4.3 mmol/L (3.5-5.0) 11/13/18 04:00 Chloride 108 mmol/L (101-111) 11/13/18 04:00 Carbon Dioxide 16 mmol/L (21-32) L 11/13/18 04:00 Anion Gap 11.0 (6-13) 11/13/18 04:00 BUN 16 mg/dL (6-20) 11/13/18 04:00 Creatinine 0.7 mg/dL (0.6-1.2) 11/13/18 04:00 Estimated GFR (MDRD) 144 (>89) 11/13/18 04:00 Glucose 176 mg/dL (70-100) H 11/13/18 04:00 POC Whole Bld Glucose 272 mg/dL (70 - 100) H 11/13/18 11:48 Glycated Hemoglobin 13.2 % (4.6-6.2) H 11/13/18 04:00 Estim Average Glucose 332 (70-100) H 11/13/18 04:00 Lactic Acid 0.7 mmol/L (0.5-2.2) 11/13/18 08:18 Calcium 8.6 mg/dL (8.5-10.3) 11/13/18 04:00 Magnesium 2.0 mg/dL (1.7-2.8) 11/13/18 02:00 Total Bilirubin 1.9 mg/dL (0.2-1.0) H 11/12/18 21:10 AST 39 IU/L (10-42) 11/12/18 21:10 ALT 35 IU/L (10-60) 11/12/18 21:10 Alkaline Phosphatase 81 IU/L (42-121) 11/12/18 21:10 Total Protein 8.8 g/dL (6.7-8.2) H 11/12/18 21:10 Albumin 5.8 g/dL (3.2-5.5) H 11/12/18 21:10 Globulin 3.0 g/dL (2.1-4.2) 11/12/18 21:10 Albumin/Globulin Ratio 1.9 (1.0-2.2) 11/12/18 21:10 Lipase 17 U/L (22-51) L 11/12/18 21:10 TSH 1.65 uIU/mL (0.34-5.60) 11/12/18 21:16 Urine Color YELLOW 11/13/18 03:47 Urine Clarity CLEAR (CLEAR) 11/13/18 03:47 Urine pH 5.0 PH (5.0-7.5) 11/13/18 03:47 Ur Specific [place] >=1.030 (1.002-1.030) H 11/13/18 03:47 Urine Protein NEGATIVE mg/dL (NEGATIVE) 11/13/18 03:47 Urine Glucose (UA) 500 mg/dL (NEGATIVE) H 11/13/18 03:47 Urine Ketones >=80 mg/dL (NEGATIVE) H 11/13/18 03:47 Urine Occult Blood NEGATIVE (NEGATIVE) 11/13/18 03:47 Urine Nitrite NEGATIVE (NEGATIVE) 11/13/18 03:47 Urine Bilirubin NEGATIVE (NEGATIVE) 11/13/18 03:47 Urine Urobilinogen 0.2 (NORMAL) E.U./dL (NORMAL) 11/13/18 03:47 Ur Leukocyte Esterase NEGATIVE (NEGATIVE) 11/13/18 03:47 Ur Microscopic Review NOT INDICATED 11/13/18 03:47 Urine Culture Comments NOT INDICATED 11/13/18 03:47 Salicylates < 6.0 mg/dL 11/12/18 21:16 Urine Opiates Screen NEGATIVE (NEGATIVE) 11/13/18 03:47 Ur Oxycodone Screen NEGATIVE (NEGATIVE) 11/13/18 03:47 Urine Methadone Screen NEGATIVE (NEGATIVE) 11/13/18 03:47 Ur Propoxyphene Screen NEGATIVE (NEGATIVE) 11/13/18 03:47 Acetaminophen < 10 ug/mL (10-30) L 11/12/18 21:16 Ur Barbiturates Screen NEGATIVE (NEGATIVE) 11/13/18 03:47 Ur Tricyclics Screen NEGATIVE (NEGATIVE) 11/13/18 03:47 Ur Phencyclidine Scrn NEGATIVE (NEGATIVE) 11/13/18 03:47 Ur Amphetamine Screen NEGATIVE (NEGATIVE) 11/13/18 03:47 U Methamphetamines Scrn NEGATIVE (NEGATIVE) 11/13/18 03:47 U Benzodiazepines Scrn NEGATIVE (NEGATIVE) 11/13/18 03:47 Urine Cocaine Screen NEGATIVE (NEGATIVE) 11/13/18 03:47 U Cannabinoids Screen NEGATIVE (NEGATIVE) 11/13/18 03:47 Ethyl Alcohol < 5.0 mg/dL 11/12/18 21:16 Serum Ketones SMALL (NEGATIVE) H 11/12/18 21:10 Influenza A (Rapid) Negative (Negative) 11/12/18 22:48 Influenza B (Rapid) Negative (Negative) 11/12/18 22:48 MRSA Surveill Initial NEGATIVE (NEGATIVE) 11/12/18 23:55 Sepsis Event Note (H) - Sepsis Criteria Sepsis Criteria: Recorded Heart Rate greater than 90 bpm, WBC count greater than 12,000 or less than 4000
[2018-11-13] MEDS ORDERED: SODIUM CHLORIDE FLUSH 0.9% 10 ML SYRINGE IVP PRN (21:03)
[2018-11-14] MEDS: VANCOMYCIN INJ 1 GM in SODIUM CHLORIDE 0.9% 250 ML IV SCH ×2 (01:27→10:01)
[2018-11-14] MEDS: SODIUM CHLORIDE FLUSH 0.9% 10 ML SYRINGE IVP PRN ×3 (03:13→08:34)
[2018-11-14 06:52] LABS: CALCIUM 8.2 mg/dL (8.5-10.3); CREATININE 0.5 mg/dL (0.6-1.2)
[2018-11-14 07:05] LABS: HB2 TOTAL 13.7 g/dL; HEMOGLOBIN A1C 1.71 g/dL; HEMOGLOBIN A1C % 13.6 % (4.6-6.2)
[2018-11-14 07:59] VITALS: BP 105/64
[2018-11-14] MEDS: CEFEPIME 2 GM in SODIUM CHLORIDE 0.9% MINIBAG 100 ML IV SCH (08:29)
[2018-11-14] MEDS: ENOXAPARIN 40 MG/0.4 ML SYRINGE SUBQ SCH (08:32)
[2018-11-14] MEDS: SODIUM CHLORIDE FLUSH 0.9% 10 ML SYRINGE IVP SCH (08:33)
[2018-11-14] MEDS: INSULIN ASPART 300 UNIT/3 ML PEN SUBQ SCH ×2 (08:34→11:59)
[2018-11-14 08:52] LABS: VANCOMYCIN,TROUGH 10.3 ug/mL (10.0-20.0)
--- NOTE | 2018-11-14 09:12 | Discharge Plan ---
Discharge Plan Disposition: 01 Home, Self Care Condition: Stable Diet: Diabetic Activity Restrictions: No Restrictions Shower Restrictions: No Driving Restrictions: No Instruction Topics: Diabetes Alf Complications, Diabetes Type 1 Coping, Diabetes Type 1 Use Insulin Ch Additional Instructions or Follow Up instructions: You were here for DKA. Resume your same dose of long-acting Insulin. Start using the higher doses of Regular Insulin on a sliding scale. See your new Technical Laboratory Asst as soon as possible for further management of your Diabetes. Also, you could come [place] [facility] [place] here. No Smoking: If you smoke, Please STOP! Call for help.
--- NOTE | 2018-11-18 16:19 | DISCHARGE SUMMARY ---
Physician: Elisa Solano MD DATE OF ADMISSION: 11/12/2018 DATE OF DISCHARGE: 11/14/2018 HISTORY OF PRESENT ILLNESS: This is a 22-year-old white male with recently diagnosed insulin-dependent diabetes, approximately seven months ago when he presented with DKA. The patient started to see an Boat Garnisher. He reports that he was advised to keep his glucoses between about 150 and 250. He apparently had another episode of DKA several months later. He presents now with sudden weakness, obtundation, tachypnea and was found to be in DKA again. HOSPITAL COURSE AND DISCHARGE DIAGNOSES 1. Diabetic ketoacidosis. The patient was admitted to the ICU and put on a standard diabetic ketoacidosis protocol including IV insulin, IV saline with close monitoring of glucoses, ketones and electrolytes. He was more awake by the second day and reported no precipitating symptoms to consider an infectious source. However, he had a very elevated white blood count at presentation of 28.2, with a marked left shift of 17% bands. He had blood and urine cultures done and was put on empiric antibiotics of IV Unasyn and IV vancomycin. 2. Diabetes mellitus with hyperglycemia. His A1c was 13.6. This was only slightly improved from 14.4, when he was newly diagnosed with diabetes seven months previously. The patient needs tighter glucose control, diabetic education and management. He reports he will be starting to see a new Boat Garnisher with the [place]. 3. Leukocytosis. Because of the high WBC of 28.2, the patient was put on empiric antibiotics and awaiting blood and urine culture results. A CXR was unremarkable. At 48 hours, the urine and blood cultures were negative. The repeat WBC dropped to 21.4 and left shift improved. His antibiotics were stopped and he was discharged without any empiric antibiotics. He presumably has a stress-induced reactive leukocytosis. LABORATORY AND IMAGING: Reviewed and summarized above. ALLERGIES: NONE. MEDICATIONS AT TIME OF DISCHARGE: Lantus insulin 25 units subcutaneously q.p.m. and sliding scale Regular insulin at 1-8 units (this was a higher sliding scale to follow). CONDITION AT DISCHARGE: Stable. PHYSICAL EXAMINATION VITAL SIGNS: Blood pressure 105/64, pulse of 64, afebrile, room air saturation 100%. HEENT: Unremarkable. NECK: No JVD. CHEST: Clear. HEART: Sounds normal. ABDOMEN: Soft and benign. EXTREMITIES: No edema. NEUROLOGIC: Intact. FOLLOWUP: He was advised to see his PCP and new Boat Garnisher in the next 1-2 weeks. CODE STATUS: FULL CODE. Time required to complete the entire discharge, chart review, patient education, and dictation: 30 minutes. TD: 11/18/2018 14:08 SLAVA
== END 2018-11-14 13:33 | disposition home or self-care (01) | DRG 639 ==
LOC: ED 20:57 → ICU 22:36 → MS3 11-13 23:16
PROVIDERS: ADMIT Internal Medicine; ATTEND Internal Medicine
DX: E10.10 Type 1 diabetes mellitus with ketoacidosis without coma (principal); D72.829 Elevated white blood cell count, unspecified
CPT/HCPCS: 36415; 71045; 80048; 80053; 80202; 80306; 80307; 80320; 80329; 81001; 81003; 82009; 82803; 82947; 83036; 83605; 83690; 83735; 84443; 85025; 87040; 87086; 87150; 87275; 87276; 93005; 96361; 96365; 99283; 99284; 99291

== ENCOUNTER 2019-03-19 04:17 | Inpatient (IN) | payer OTHER ==
--- NOTE | 2019-03-19 04:22 | ED Physician Documentation ---
PD HPI NVD - Stated complaint Stated Complaint: NAUSEA/VOMITING - History obtained from History obtained from: Patient - History of Present Illness Timing - onset: Enter time (19:30), Last night Timing - duration: Hours Timing - details: Abrupt onset Pain level max: 0 Pain level now: 0 Associated symptoms: Dizzy. No: Fever, Abdominal pain Similar symptoms before: Diagnosis (similar to previous episodes of DKA) Recently seen: Not recently seen - Additonal information Additional information: c/o several hours of nausea, vomiting, diarrhea associated with increasing lightheadedness/dizziness. Symptoms are similar to previous episodes of DKA (admitted [facility] in October 2018 as well as last year). Denies change in diet and denies change in insulin regimen/compliance. Review of Systems Constitutional: reports: Reviewed and negative Eyes: reports: Reviewed and negative Ears: reports: Reviewed and negative Nose: reports: Reviewed and negative Throat: reports: Reviewed and negative Cardiac: reports: Reviewed and negative Respiratory: reports: Reviewed and negative GI: reports: Nausea, Vomiting, Diarrhea. denies: Abdominal Pain : denies: Dysuria, Frequency Skin: reports: Reviewed and negative Musculoskeletal: reports: Reviewed and negative Neurologic: reports: Generalized weakness. denies: Focal weakness, Numbness, Headache PD PAST MEDICAL HISTORY - Past Medical History Cardiovascular: None Respiratory: None Neuro: None Endocrine/Autoimmune: Type 1 diabetes GI: None : None HEENT: None Psych: None Musculoskeletal: None Derm: None - Past Surgical History Past Surgical History: No - Present Medications Home Medications: Ambulatory Orders Medication Instructions Recorded Confirmed Insulin Glargine [Lantus Solostar] 25 unit SUBQ QPM 06/11/18 03/19/19 Insulin Lispro [Humalog Kwikpen 0 - 8 units SUBQ ACHS 11/13/18 03/19/19 U-100] - Allergies Allergies/Adverse Reactions: Allergies Allergy/AdvReac Type Severity Reaction Status Date / Time No Known Drug Allergies Allergy Verified 03/19/19 04:41 - Social History Does the pt smoke?: No Smoking Status: Never smoker Does the pt drink ETOH?: No Does the pt have substance abuse?: No - Immunizations Immunizations are current?: Yes - POLST Patient has POLST: Yes POLST Status: Full Code PD ED PE NORMAL - Vitals Vital signs reviewed: Yes - General General: Alert and oriented X 3 - HEENT HEENT: Other (dry mucous membranes) - Neck Neck: Supple, no meningeal sign - Cardiac Cardiac: No murmur - Respiratory Respiratory: No respiratory distress, Clear bilaterally - Abdomen Abdomen: Soft, Non tender - Derm Derm: Normal color, Warm and dry - Extremities Extremities: No edema - Neuro Neuro: Alert and oriented X 3 PD ED PE EXPANDED - Cardiac Cardiac: Tachy, Regular Rhythm Results - Vitals Vitals: Vital Signs - 24 hr 03/19/19 03/19/19 04:23 05:02 Temperature 36.6 C Heart Rate 136 H 125 H Respiratory 22 Rate Blood Pressure 130/75 O2 Saturation 100 Oxygen O2 Source Room air - Labs Labs: Laboratory Tests 03/19/19 03/19/19 03/19/19 04:30 04:30 05:15 WBC 35.8 H* RBC 5.29 Hgb 16.2 Hct 51.5 MCV 97.4 H MCH 30.6 MCHC 31.5 L RDW 11.7 L Plt Count 346 MPV 10.8 Neut # (Auto) SALON STYLIST Lymph # (Auto) SALON STYLIST [place] # (Auto) SALON STYLIST Eos # (Auto) SALON STYLIST Baso # (Auto) SALON STYLIST Absolute Nucleated RBC SALON STYLIST Total Counted 100 Band Neuts % (Manual) 15 H Abnorm Lymph % (Manual) 0 Metamyelocytes % 1 H Myelocytes % 1 H Nucleated RBC % SALON STYLIST Neutrophils # (Manual) 29.7 H Lymphocytes # (Manual) 3.6 H Monocytes # (Manual) 1.8 H Eosinophils # (Manual) 0.0 Basophils # (Manual) 0.0 Differential Comment MANUAL DIFFERENTIAL Platelet Estimate NORMAL (130-450,000) RBC Morph Micro Appear NORMAL APPEARANCE VBG pH VBG pCO2 VBG pO2 VBG HCO3 VBG Total CO2 VBG O2 Saturation VBG Base Excess Sodium 134 L Potassium 6.3 H* Chloride 100 L Carbon Dioxide 6 L* Anion Gap 28.0 H BUN 22 H Creatinine 1.4 H Estimated GFR (MDRD) 64 L Glucose 585 H* Calcium 9.3 Phosphorus 6.8 H Magnesium 2.6 Total Bilirubin 1.7 H AST 37 ALT 34 Alkaline Phosphatase 98 Total Protein 8.9 H Albumin 5.5 Globulin 3.4 Albumin/Globulin Ratio 1.6 Lipase 54 H Urine Color YELLOW Urine Clarity CLEAR Urine pH 5.0 Ur Specific [place] 1.025 Urine Protein 30 H Urine Glucose (UA) >=1000 H Urine Ketones >=80 H Urine Occult Blood MODERATE H Urine Nitrite NEGATIVE Urine Bilirubin NEGATIVE Urine Urobilinogen 0.2 (NORMAL) Ur Leukocyte Esterase NEGATIVE Urine RBC 0-5 Urine WBC 0-3 Ur Squamous Epith Cells NONE SEEN Urine Bacteria None Seen Ur Microscopic Review INDICATED Urine Culture Comments NOT INDICATED Serum Ketones SMALL H 03/19/19 05:25 WBC RBC Hgb Hct MCV MCH MCHC RDW Plt Count MPV Neut # (Auto) Lymph # (Auto) [place] # (Auto) Eos # (Auto) Baso # (Auto) Absolute Nucleated RBC Total Counted Band Neuts % (Manual) Abnorm Lymph % (Manual) Metamyelocytes % Myelocytes % Nucleated RBC % Neutrophils # (Manual) Lymphocytes # (Manual) Monocytes # (Manual) Eosinophils # (Manual) Basophils # (Manual) Differential Comment Platelet Estimate RBC Morph Micro Appear VBG pH 6.935 L VBG pCO2 16.0 L VBG pO2 99.5 H VBG HCO3 3.3 L VBG Total CO2 3.8 L VBG O2 Saturation 95.8 H VBG Base Excess -27.7 L Sodium Potassium Chloride Carbon Dioxide Anion Gap BUN Creatinine Estimated GFR (MDRD) Glucose Calcium Phosphorus Magnesium Total Bilirubin AST ALT Alkaline Phosphatase Total Protein Albumin Globulin Albumin/Globulin Ratio Lipase Urine Color Urine Clarity Urine pH Ur Specific [place] Urine Protein Urine Glucose (UA) Urine Ketones Urine Occult Blood Urine Nitrite Urine Bilirubin Urine Urobilinogen Ur Leukocyte Esterase Urine RBC Urine WBC Ur Squamous Epith Cells Urine Bacteria Ur Microscopic Review Urine Culture Comments Serum Ketones PD MEDICAL DECISION MAKING - ED course Complexity details: reviewed old records, reviewed results, re-evaluated patient, considered differential, d/w patient Departure - Departure Disposition: 66 [facility] DC/Xfer Clinical Impression: DKA (diabetic ketoacidoses) Condition: Fair Discharge Date/Time: 03/19/19 05:50
[2019-03-19] MEDS ORDERED: SODIUM CHLORIDE 0.9% 1,000 ML IV STA (04:35)
[2019-03-19] MEDS ORDERED: ONDANSETRON 4 MG/2 ML VIAL IVP STA (04:37)
[2019-03-19] MEDS ORDERED: INSULIN REGULAR HUMAN 100 UNIT/1 ML 10 ML MDV SUBQ STA (04:38)
[2019-03-19 05:01] LABS: BASOPHILS % (AUTO) 0.1 %; EOSINOPHILS % (AUTO) 0.1 %; HGB - HEMOGLOBIN 16.2 g/dL (14.0-18.0); LYMPHOCYTES % (AUTO) 9.2 %; MEAN CORPUSCULAR HEMOGLOBIN 30.6 pg (27.0-31.0); MEAN CORPUSCULAR HGB CONC 31.5 g/dL (32.0-36.0); MEAN CORPUSCULAR VOLUME 97.4 fL (80.0-94.0); MEAN PLATELET VOLUME 10.8 fL (7.4-11.4); PLT - PLATELET COUNT 346 10^3/uL (130-450); RED BLOOD COUNT 5.29 10^6/uL (4.70-6.10); RED CELL DISTRIBUTION WIDTH 11.7 % (12.0-15.0)
[2019-03-19 05:05] LABS: KETONES, SERUM (ACETEST) SMALL (NEGATIVE); WHITE BLOOD COUNT 35.8 x10^3/uL (4.8-10.8)
[2019-03-19 05:06] LABS: ABNORMAL LYMPHS % (MANUAL) 0 %
[2019-03-19 05:12] LABS: ALBUMIN 5.5 g/dL (3.2-5.5); ALBUMIN/GLOBULIN RATIO 1.6 (1.0-2.2); ALKALINE PHOSPHATASE 98 IU/L (42-121); ALT ALANINE AMINOTRANSFERASE 34 IU/L (10-60); AST ASPARTATE AMINOTRANSFERASE 37 IU/L (10-42); BILIRUBIN,TOTAL 1.7 mg/dL (0.2-1.0); BUN - BLOOD UREA NITROGEN 22 mg/dL (6-20); CALCIUM 9.3 mg/dL (8.5-10.3); CHLORIDE 100 mmol/L (101-111); CREATININE 1.4 mg/dL (0.6-1.2); GFR - MDRD 64 (>89); LIPASE 54 U/L (22-51); MAGNESIUM 2.6 mg/dL (1.7-2.8); PHOSPHORUS 6.8 mg/dL (2.5-4.6); SODIUM 134 mmol/L (135-145); TOTAL PROTEIN 8.9 g/dL (6.7-8.2)
[2019-03-19 05:13] LABS: GLUCOSE 585 mg/dL (70-100)
[2019-03-19 05:15] LABS: BILIRUBIN,URINE NEGATIVE (NEGATIVE); GLUCOSE, URINE (UA) >=1000 mg/dL (NEGATIVE); KETONES,URINE (UA) >=80 mg/dL (NEGATIVE); LEUKOCYTE ESTERASE, URINE NEGATIVE (NEGATIVE); NITRITE,URINE NEGATIVE (NEGATIVE); OCCULT BLOOD,URINE MODERATE (NEGATIVE); PROTEIN,URINE 30 mg/dL (NEGATIVE); UROBILINOGEN,URINE 0.2 (NORMAL) E.U./dL (NORMAL)
[2019-03-19 05:16] LABS: CARBON DIOXIDE - CO2 6 mmol/L (21-32)
[2019-03-19] MEDS ORDERED: INSULIN REGULAR HUMAN 100 UNIT in SODIUM CHLORIDE 0.9% 100ML 99 ML SUBQ STA (05:16)
[2019-03-19 05:17] LABS: CLARITY,URINE CLEAR (CLEAR)
[2019-03-19 05:24] LABS: BACTERIA,URINE None Seen /HPF (None Seen); RBC,URINE 0-5 /HPF (0-5); SQUAMOUS EPITHELIAL CELL,UR NONE SEEN (<= Few)
[2019-03-19 05:26] LABS: BAND NEUTROPHILS % (MANUAL) 15 %; LYMPHOCYTES # (MANUAL) 3.6 10^3/uL (1.5-3.5); LYMPHOCYTES % (MANUAL) 10 %; METAMYELOCYTES % (MANUAL) 1 %; MONOCYTES # (MANUAL) 1.8 10^3/uL (0.0-1.0); MYELOCYTES % (MANUAL) 1 %; NEUTROPHILS # (MANUAL) 29.7 10^3/uL (1.5-6.6); NEUTROPHILS % (MANUAL) 68 %; PLATELET ESTIMATE, MANUAL NORMAL (130-450,000) (NORMAL); RBC MORPHOLOGY (MULTIPLE) NORMAL APPEARANCE (NORMAL)
[2019-03-19 05:31] LABS: VBG PH 6.935 (7.31-7.41); VBG PO2 99.5 mmHg (25-47); VBG TOTAL CO2 3.8 mmol/L (24-29)
[2019-03-19 05:32] LABS: VBG BASE EXCESS -27.7 mmol/L (-2 - +2)
[2019-03-19] MEDS ORDERED: INSULIN REGULAR HUMAN 100 UNIT in SODIUM CHLORIDE 0.9% 100ML 99 ML IV STA (05:32)
[2019-03-19] MEDS ORDERED: ONDANSETRON 4 MG/2 ML VIAL IVP PRN (05:33)
[2019-03-19] MEDS: SODIUM CHLORIDE 0.9% 1,000 ML IV STA ×2 (05:34→05:39)
[2019-03-19 05:56] LABS: DIFFERENTIAL COMMENT MANUAL DIFFERENTIAL
[2019-03-19] MEDS ORDERED: SODIUM CHLORIDE 0.9% 1,000 ML IV SCH (06:00)
[2019-03-19] MEDS: INSULIN REGULAR HUMAN 100 UNIT in SODIUM CHLORIDE 0.9% 100ML 99 ML IV SCH (06:20)
--- NOTE | 2019-03-19 06:21 | HISTORY & PHYSICAL EXAMINATION ---
Chief Complaint - Chief Complaint Chief Complaint: nausea, vomiting and diarrhea History of Present Illness - Admitted From Admitted From:: [facility] ED - History Obtained From Records Reviewed: yes History obtained from: patient - History of Present Illness HPI Comment/Other: Patient seen on 03/19/19 at 06:00am Patient is a 23 y/o male who presents to the ED with complain of nausea, vomiting and diarrhea which has been going on for a few hours. He denies abd pain, chest pain, DAVI, fever or chills. In the course of work up he was found to be in DKA with a bicarbonate level of 6 and to have a WBC of 35. As a result he is being admitted to the ICU for further management. He denies any weight loss. He denies night sweats, bones or joint aches. There is no active stressor in his life currently. He started working at [employer] 3 months ago. He has no wound or cuts on his body. He is currently on lantus 25 unit at night. The rest of his history is unremarkable. History - Past Medical History Cardiovascular: reports: None Respiratory: reports: None Neuro: reports: None Endocrine/Autoimmune: reports: Type 1 diabetes GI: reports: None : reports: None HEENT: reports: None Psych: reports: None Musculoskeletal: reports: None Derm: reports: None MRSA Hx?: No - Past Surgical History Other past surgical history: No surgical history - Family & Social History Family History: Mother: Alive and Well, Father: Alive and Well, Brother: Alive and Well Family History Comment/Other: NONE Living arrangement: At home Living Situation: With family - Substance History Use: Uses substance without health or social issues: NONE - POLST Patient has POLST: Yes POLST Status: Full Code Meds/Allgy - Home Medications Home Medications: Ambulatory Orders Medication Instructions Recorded Confirmed Insulin Glargine [Lantus Solostar] 25 unit SUBQ QPM 06/11/18 03/19/19 Insulin Lispro [Humalog Kwikpen 0 - 8 units SUBQ ACHS 11/13/18 03/19/19 U-100] - Allergies Allergies/Adverse Reactions: Allergies Allergy/AdvReac Type Severity Reaction Status Date / Time No Known Drug Allergies Allergy Verified 03/19/19 04:41 Review of Systems - Constitutional Constitutional: denies: Fatigue, Fever, Chills, Malaise, Weakness, Diaphoresis, Night sweats, Weight loss - Eyes Eyes: denies: Blurred vision, Vision loss, Dipolpia - Ears, Nose & Throat Ears, Nose & Throat: denies: Vertigo, Sore throat - Cardiovascular Cariovascular: denies: Chest pain, Edema, Syncope, Exertional dyspnea, Decr. exercise tolerance - Respiratory Respiratory: denies: Cough, Sputum production, Wheezing - Gastrointestinal Gastrointestinal: reports: Diarrhea, Nausea, Vomiting. denies: Abdominal pain, Black stools, Coffee grounds emesis - Genitourinary Genitourinary: denies: Dysuria, Frequency, Urgency, Hematuria - Musculoskeletal Musculoskeletal: denies: Muscle pain, Back pain, Muscle aches, Stiffness - Integumentary Integumentary: denies: Rash, Pruritis, Lesions - Neurological Neurological: denies: General weakness, Focal weakness, Headache, Dizziness - Psychiatric Psychiatric: denies: Depression, Anxiety - Endocrine Endocrine: denies: Polyuria, Polydypsia - Hematologic/Lymphatic Hematologic/Lymphatic: denies: Anemia, Bruising, Petechiae Prior Level of Functionality: Patient is independent of activities of daily living Exam - Vital Signs Vital Signs: Vital Signs x48h Temp Pulse Resp BP Pulse Ox 03/19/19 05:02 125 H 03/19/19 04:23 36.6 C 136 H 22 130/75 100 - Physical Exam General Appearance: positive: No acute distress, Alert Eyes Bilateral: positive: Normal inspection, PERRL, EOMI ENT: positive: ENT inspection nml, Dry mucous membranes Neck: positive: Nml inspection, No JVD, Trachea midline Respiratory: positive: Chest non-tender, No respiratory distress, Breath sounds nml. negative: Wheezes, Rales, Rhonchi Cardiovascular: positive: No murmur, Tachycardia Back: positive: Nml inspection Skin: positive: Color nml, No rash, Warm, Dry Extremities: positive: Non-tender, Full ROM, Nml appearance Neurologic/Psychiatric: positive: Oriented x3, CN's nml (2-12), Motor nml, Sensation nml Conclusion/Plan - Problem List (1) DKA (diabetic ketoacidoses) Conclusion/Plan: Patient admitted to the ICU Started on insulin gtt per DKA protocol 2L of Normal Saline given Will give a 3rd liter then run NS at 125ml/hr after At a blood glucose of 200, will switch fluids to d5W+Half NS + 20mEq KCl Qualifiers: Diabetes mellitus type: type 1 Diabetes mellitus complication detail: without coma Qualified Code(s): E10.10 - Type 1 diabetes mellitus with ketoacidosis without coma (2) Leukocytosis Conclusion/Plan: Etiology undetermined WBC 35 with 15% bands. WBC was 28 during admission in October 2018 Blood cultures drawn. Empiric antibiotics: vanc and Zosyn started IF no growth on cultures, patient has been advised to follow up with his doctor within 1 week of discharge for a repeat CBC. If WBC remains elevated at that time, patient may need referral to Hem/Onc Qualifiers: Leukocytosis type: bandemia Qualified Code(s): D72.825 - Bandemia (3) Hyperkalemia Conclusion/Plan: Anticipate correction as DKA is treated with insulin drip and hydration - Lab Results Fish Bones: 03/19/19 04:30 03/19/19 04:30 Core Measures - Anticipated LOS I expect patient to be DC'd or transferred within 96 hours.: Yes - DVT/VTE - Prophylaxis VTE/DVT Device ordered at admit?: Yes
[2019-03-19 06:52] LABS: VBG PH 6.906 (7.31-7.41)
[2019-03-19 06:53] LABS: VBG PCO2 25.9 mmHg (41-51); VBG PO2 59.4 mmHg (25-47); VBG TOTAL CO2 5.8 mmol/L (24-29)
[2019-03-19] MEDS ORDERED: PIPERACILLIN/TAZOBACTAM 3.375 GM in SODIUM CHLORIDE 0.9% MINIBAG 100 ML IV SCH (07:00)
[2019-03-19] MEDS ORDERED: VANCOMYCIN INJ 0.75 GM in SODIUM CHLORIDE 0.9% 250 ML IV SCH (07:00)
[2019-03-19] MEDS ORDERED: VANCOMYCIN PER PHARMACY 100 GM in SODIUM CHLORIDE 0.9% 250 ML IV SCH (07:00)
[2019-03-19 07:02] LABS: CALCIUM 8.1 mg/dL (8.5-10.3); CREATININE 1.2 mg/dL (0.6-1.2)
[2019-03-19 07:10] LABS: HB2 TOTAL 15.2 g/dL; HEMOGLOBIN A1C 2.01 g/dL; HEMOGLOBIN A1C % 14.2 % (4.6-6.2)
[2019-03-19] MEDS ORDERED: SODIUM BICARBONATE 100 MEQ in DEXTROSE 5% 1,000 ML IV SCH (08:00)
[2019-03-19] MEDS: PIPERACILLIN/TAZOBACTAM 3.375 GM in SODIUM CHLORIDE 0.9% MINIBAG 100 ML IV SCH ×3 (08:50→20:13)
[2019-03-19] MEDS: VANCOMYCIN INJ 1 GM, VANCOMYCIN INJ 500 MG in SODIUM CHLORIDE 0.9% 500 ML IV SCH ×2 (08:53→20:22)
[2019-03-19 09:04] LABS: CALCIUM 8.4 mg/dL (8.5-10.3); CREATININE 1.1 mg/dL (0.6-1.2); MAGNESIUM 2.3 mg/dL (1.7-2.8)
[2019-03-19] MEDS: SODIUM CHLORIDE FLUSH 0.9% 10 ML SYRINGE IVP SCH ×3 (09:05→20:23)
--- NOTE | 2019-03-19 10:26 | XRAY Report ---
Reason: Abn EKG Procedure Date: 03/19/2019 Accession Number: [id number] / [id number] Procedure: XR - Chest 1 View X-Ray CPT Code: 16170 FULL RESULT: EXAM: CHEST RADIOGRAPHY EXAM DATE: 03/19/2019 08:37 AM. CLINICAL HISTORY: Abnormal EKG. COMPARISON: CHEST FOR LINE PLACEMENT 11/13/2018 12:19 AM. TECHNIQUE: 1 view. FINDINGS: Lungs/Pleura: No focal opacities evident. No pleural effusion. No pneumothorax. Mediastinum: Within exam limitations, the cardiomediastinal contour is normal. Other: No acute osseous abnormality. IMPRESSION: No acute cardiopulmonary abnormality. RADIA
[2019-03-19 11:30] LABS: CALCIUM 8.4 mg/dL (8.5-10.3)
[2019-03-19 11:57] LABS: MAGNESIUM 2.2 mg/dL (1.7-2.8)
--- NOTE | 2019-03-19 12:42 | PROVIDER PROGRESS NOTE ---
Hospitalist Cross-cover Note - Cross-Cover Note Cross-Cover Note: I was called by his RN to reevaluate patient's cardiac sounds. Patient is tachycardic, has a normal S1-S2, and has a 2/6 systolic murmur, only in the pulmonic aresa, only heard during inspiration. A baseline EKG was done as a routine in [facility] and this showed abnormalities also consistent with the right heart: EKG interpreted by me: Right axis deviation, right atrial enlargement, RSR' in V2. Comparing this to his last EKG done October 2018, he had a vertical axis then but right atrial enlargement was already present then. Impression: Systolic pulmonic murmur Abnormal EKG Assessment and Plan: This may be a flow murmur related to volume depletion and increased adrenergic state. This could be a murmur of pulmonic stenosis or subpulmonic stenosis, only heard during inspiration when he has increased venous return and a larger volume of blood to eject across the pulmonic valve. With the EKG findings, he may have a congenital heart defect. Will order an Echo to evaluate for congenital heart defect and evaluate the murmur. Since he is not hypoxic, chronic pulmonary emboli or a chronic, recurrent pulmonary diagnosis are less likely. We will obtain a resting chest x-ray to evaluate pulmonary parenchyma and cardiac silhouette.
[2019-03-19] MEDS ORDERED: DEXTROSE 5%-0.9% NACL 1,000 ML IV SCH (13:00)
[2019-03-19] MEDS ORDERED: DEXTROSE 5% 1,000 ML IV ONE (13:06)
[2019-03-19] MEDS ORDERED: AMIODARONE 360 MG/200 ML 200 ML IV ONE (18:15)
[2019-03-19] MEDS ORDERED: AMIODARONE 150 MG/100 ML 100 ML IV ONE (18:15)
[2019-03-19 18:48] LABS: VBG BASE EXCESS -4.4 mmol/L (-2 - +2); VBG PH 7.375 (7.31-7.41); VBG PO2 36.5 mmHg (25-47); VBG TOTAL CO2 21.1 mmol/L (24-29)
[2019-03-19 18:51] LABS: BUN - BLOOD UREA NITROGEN 10 mg/dL (6-20); CALCIUM 8.8 mg/dL (8.5-10.3); CARBON DIOXIDE - CO2 20 mmol/L (21-32); CHLORIDE 114 mmol/L (101-111); CREATININE 0.8 mg/dL (0.6-1.2); GFR - MDRD 122 (>89); GLUCOSE 94 mg/dL (70-100); SODIUM 141 mmol/L (135-145)
[2019-03-19 18:57] LABS: KETONES, SERUM (ACETEST) SMALL (NEGATIVE)
[2019-03-19] MEDS ORDERED: AMIODARONE 360 MG/200 ML 200 ML IV SCH (19:00)
[2019-03-19] MEDS ORDERED: POTASSIUM CHLORIDE 20 MEQ TABLET PO ONE (19:50)
[2019-03-19] MEDS: INSULIN ASPART 300 UNIT/3 ML PEN SUBQ SCH (20:10)
[2019-03-19] MEDS ORDERED: INSULIN GLARGINE 300 UNIT/3 ML PEN SUBQ SCH (21:00)
[2019-03-20] MEDS: SODIUM CHLORIDE FLUSH 0.9% 10 ML SYRINGE IVP PRN ×2 (02:32→10:21)
[2019-03-20] MEDS: PIPERACILLIN/TAZOBACTAM 3.375 GM in SODIUM CHLORIDE 0.9% MINIBAG 100 ML IV SCH ×3 (02:32→13:49)
[2019-03-20 05:46] LABS: BASOPHILS % (AUTO) 0.1 %; EOSINOPHILS # (AUTO) 0.1 10^3/uL (0.0-0.7); EOSINOPHILS % (AUTO) 0.5 %; HGB - HEMOGLOBIN 12.2 g/dL (14.0-18.0); LYMPHOCYTES # (AUTO) 2.3 10^3/uL (1.5-3.5); LYMPHOCYTES % (AUTO) 15.8 %; MEAN CORPUSCULAR HEMOGLOBIN 30.8 pg (27.0-31.0); MEAN CORPUSCULAR HGB CONC 34.7 g/dL (32.0-36.0); MEAN CORPUSCULAR VOLUME 88.9 fL (80.0-94.0); MEAN PLATELET VOLUME 10.1 fL (7.4-11.4); MONOCYTES % (AUTO) 6.5 %; NEUTROPHILS # (AUTO) 11.2 10^3/uL (1.5-6.6); NEUTROPHILS % (AUTO) 76.7 %; PLT - PLATELET COUNT 176 10^3/uL (130-450); RED BLOOD COUNT 3.96 10^6/uL (4.70-6.10); WHITE BLOOD COUNT 14.6 x10^3/uL (4.8-10.8)
[2019-03-20 05:57] LABS: CALCIUM 8.5 mg/dL (8.5-10.3); CREATININE 0.8 mg/dL (0.6-1.2); MAGNESIUM 2.1 mg/dL (1.7-2.8); PHOSPHORUS 2.4 mg/dL (2.5-4.6)
[2019-03-20] MEDS: SODIUM CHLORIDE FLUSH 0.9% 10 ML SYRINGE IVP SCH ×2 (08:39→18:08)
[2019-03-20] MEDS: INSULIN ASPART 300 UNIT/3 ML PEN SUBQ SCH ×3 (08:40→17:12)
[2019-03-20] MEDS: VANCOMYCIN INJ 1 GM, VANCOMYCIN INJ 500 MG in SODIUM CHLORIDE 0.9% 500 ML IV SCH (10:19)
[2019-03-20] MEDS ORDERED: INSULIN ASPART 300 UNIT/3 ML PEN SUBQ SCH (11:36)
--- NOTE | 2019-03-20 16:53 | Discharge Plan ---
Discharge Plan Disposition: 01 Home, Self Care Condition: Good Prescriptions: Potassium Chloride 10 meq PO ONCE #3 tablet.er Saccharomyces Boulardii [Florastor] 250 mg PO BID #60 capsule Sulfamethoxazole/Trimethoprim [Bactrim 400-80 mg Tablet] 1 each PO BID #10 tablet Diet: Diabetic Activity Restrictions: Activity as Tolerated Shower Restrictions: No Driving Restrictions: No Instruction Topics: Saccharomyces boulardii Florastor oral dosage forms, Vancomycin injection, Piperacillin Tazobactam injection, Sulfamethoxazole Trimethoprim SMX-TMP tablets, Diabetes Carbs, DKA Prevent Ch, Diabetes Type 1, Diabetic Ketoacidosis, ED Diet Diabetic Health Concerns: Diabetes mellitus type 1 and DKA Elevated hemoglobin A1C at 14.5% (Should be ~6.5-7 %, or based on your provider's recommendation) Leukocytosis A heart murmur, noted during inspiration Plan of Treatment: Increase Lantus to 25 units nightly Create a good home schedule with regular meals, and insulin coverage Low stress at home if this is an issue Attend our [facility] clinic for a diabetic nurse educator Care Goals: Preserve your overall health by good blood sugar control Seek a medical visit with a hemotologist for the elevated WBC count to rule out the worst case scenario causes Seek a regular, local primary care provider Stay out of the hospital and the ED Keep your very good job at [employer] Assessment: You were admitted for a condition called diabetic keto-acidosis in which your blood sugar became out of control, which in turn influenced the toxins in your blood stream. You were put on an insulin drip while in the ICU and transitioned to an injection schedule. Please take the higher dose of insulin (Lantus) 25 units nightly. Use the very first blood sugar value of the day to guide this dose, but you need to see a nurse educator first. We were concerned about your WBC count being 35 (normal 4.8-10.8), but this was similar to a previous time. We found no infection, but your WBC count improved to 14 after getting IV antibiotics. Please continue another 5 days of antibiotics. Please have your primary care provider make a referral to a hemotologist (a blood specialist) to be evaluated for hereditary reasons, bone marrow dysfunction, any types of blood cancers, or infectious reasons. Other reasons that can lead to elevated WBC counts is stress, physical or emotional, vigorous exercise, cigarette smoking, drug use, steroid use, or stimulant drug use. I have put in a referral for a diabetic nurse educator, please expect a call as early as tomorrow regarding this. You can return to work tomorrow, but I usually write for patients to take off until they follow up with their primary. Please see your PCP within one week. Additional Instructions or Follow Up instructions: Please get an updated echocardiogram, which needs to be ordered by your PCP. Follow-Up Care: [facility] - Diabetes Ed No Smoking: If you smoke, Please STOP! Call for help. Follow-up with: ISAIAH TIJERINA MD [Primary Care Provider] -
[2019-03-20 17:01] LABS: CALCIUM 8.7 mg/dL (8.5-10.3); CREATININE 0.7 mg/dL (0.6-1.2)
[2019-03-20 17:30] LABS: PHOSPHORUS 2.4 mg/dL (2.5-4.6)
[2019-03-20] MEDS ORDERED: POTASSIUM CHLORIDE 20 MEQ TABLET PO ONE (17:48)
--- NOTE | 2019-03-20 17:59 | DISCHARGE SUMMARY ---
Discharge Summary Admit Date: 03/19/19 Discharge Date: 03/20/19 Discharging Provider: FABY Thompson Primary Care Provider: Cassandra Loomis Code Status: Attempt Resuscitation Condition at Discharge: Good Discharge Disposition: 01 Home, Self Care - DIAGNOSES Admission Diagnoses: DKA, type 1 Leukocytosis Hyperkalemia Discharge Diagnoses with Status of Each Condition: DKA, type 1- chronic, needs a diabetic nurse educator, elevated HgA1C at 14% Leukocytosis- chronic, recommend a hematology consult, reduced from admission, continues on PO antibiotics Hyperkalemia- resolved Pulmonic valve murmur - chronic, recommend outpatient echocardiogram Neutrophilic leukocytosis- reduced from admission Elevated hemoglobin A1C- 14% HgA1C shows mis-managed blood sugars Uncontrolled type 1 DM with insulin use- Increased Lantus, encouraged to follow up with [facility] Dehydration- resolved Medical non-compliance- Evidenced by elevated HgA1C, very labile about following up, luckily his parents were present during discharge teaching - HPI History of Present Illness: HPI per Dr. Bernstein: (Modified) Adebayo Marte is a 23 year old male with a history of diabetes mellitus type I, which was diagnosed one year ago, prior episodes of DKA. He presented to the ED with complaints of nausea, vomiting, diarrhea and abdominal pain which has been going on for a few hours. He denies chest pain, shortness of breath, a new rash, a productive cough, fevers, chills, weight loss, night sweats, bones or joint aches. There is no active stress in his life currently, he denies alcohol use, methamphetamines, heroin, tobacco abuse, or recent infections. He started working at [employer] 3 months ago. He has no wound or cuts on his body, and no other source of infection. He is currently on lantus 15 unit at night. Labs on admission show an elevated WBC count of 35.8, band neurophil count 15. VBGs of pH 6.9, pCO2 25.9, pO2 59.4, HCO3 5.0, Total CO2 5.8 O2 saturation 85.8, base excess -27.0, sodium of 134, potassium 5.8, carbon dioxide 6, anion gap 21, BUN 19, creatinine 1.2, GFR 76, glucose 410, Glycated hemoglobin 14.2%, calcium 8.1, phosphorus 6.8, mag 2.6, total bili 1.7, and total protein 8.9, urine studies show urine protein of 30, urine glucose >1000, ketones >80, and +occult, not thought to be infectious. A chest x-ray is normal. Given that the patient is in acute DKA, he was admitted to the ICU for treatment using an insulin drip. - HOSPITAL COURSE Hospital Course: The patient was initially admitted to the ICU and put on an insulin gtt for DKA. By the next morning he was tolerating meals, and had an increased Lantus dose with an overall improvement in blood sugars and a resolution of his initial abdominal pain. He denied illicit drug use and no urine tox screen was completed, unfortunately upon admission, which would have ruled out drugs as the cause of his profound leukocytosis. He was very sleepy for much of his first day of stay. He was increasingly anxious just prior to discharge and refused a work excuse note. A computer referral to see a diabetic nurse educator at our [facility] was put in prior to discharge. Prescriptions were sent to the pharmacy to be continued at home. No source of infection was finalized. He was medically stable and discharged home with his parents. - ALLERGIES Allergies/Adverse Reactions: Allergies Allergy/AdvReac Type Severity Reaction Status Date / Time No Known Drug Allergies Allergy Verified 03/19/19 04:41 - MEDICATIONS Home Medications: Ambulatory Orders Medication Instructions Recorded Confirmed Insulin Lispro [Humalog Kwikpen 0 - 10 units SUBQ ACHS 11/13/18 03/19/19 U-100] Insulin Glargine [Lantus Solostar] 25 unit SUBQ QPM #1 each 03/20/19 03/19/19 Potassium Chloride 10 meq PO ONCE #3 tablet.er 03/20/19 Saccharomyces Boulardii [Florastor] 250 mg PO BID #60 capsule 03/20/19 Sulfamethoxazole/Trimethoprim 1 each PO BID #10 tablet 03/20/19 [Bactrim 400-80 mg Tablet] - PHYSICAL EXAM AT DISCHARGE General Appearance: positive: No acute distress, Alert Eyes Bilateral: positive: PERRL ENT: positive: Pharynx nml, No signs of dehydration Neck: positive: Thyroid nml, No JVD Respiratory: positive: Chest non-tender, No respiratory distress, Breath sounds nml Cardiovascular: positive: Regular rate & rhythm, No gallop, Systolic murmur Peripheral Pulses: positive: 2+ Abdomen: positive: Non-tender, Nml bowel sounds Back: positive: Nml inspection Skin: positive: Color nml, No rash, Warm, Dry Extremities: positive: Non-tender, Full ROM, Nml appearance, No pedal edema Neurologic/Psychiatric: positive: Oriented x3, CN's nml (2-12), Motor nml, Sens ation nml, Mood/affect nml Reflexes: Bicep (R): 3+, Bicep (L): 3+ - LABS Result Diagrams: 03/20/19 05:27 03/20/19 16:45 - DIAGNOSTIC IMAGING Diagnostic Imaging Results: Final report reviewed Diagnostic Imaging Results Comments: EXAM: CHEST RADIOGRAPHY EXAM DATE: 03/19/2019 08:37 AM FINDINGS: Lungs/Pleura: No focal opacities evident. No pleural effusion. No pneumothorax. Mediastinum: Within exam limitations, the cardiomediastinal contour is normal. Other: No acute osseous abnormality. IMPRESSION: No acute cardiopulmonary abnormality. - FOLLOW UP Follow Up: Disposition: Home Condition: Good Prescriptions: Potassium Chloride 10 meq PO ONCE #3 tablet.er Saccharomyces Boulardii [Florastor] 250 mg PO BID #60 capsule Sulfamethoxazole/Trimethoprim [Bactrim 400-80 mg Tablet] 1 each PO BID #10 tablet Diet: Diabetic Health Concerns: Diabetes mellitus type 1 and DKA Elevated hemoglobin A1C at 14.5% (Should be ~6.5-7 %, or based on your provider's recommendation) Leukocytosis A heart murmur, noted during inspiration Plan of Treatment: Increase Lantus to 25 units nightly Create a good home schedule with regular meals, and insulin coverage Low stress at home if this is an issue Attend our [facility] for a diabetic nurse educator Care Goals: Preserve your overall health by good blood sugar control Seek a medical visit with a hemotologist for the elevated WBC count to rule out the worst case scenario causes Seek a regular, local primary care provider Stay out of the hospital and the ED Keep your very good job at [employer] Assessment: You were admitted for a condition called diabetic keto-acidosis in which your blood sugar became out of control, which in turn influenced the toxins in your blood stream. You were put on an insulin drip while in the ICU and transitioned to an injection schedule. Please take the higher dose of insulin (Lantus) 25 units nightly. Use the very first blood sugar value of the day to guide this dose, but you need to see a nurse educator first. We were concerned about your WBC count being 35 (normal 4.8-10.8), but this was similar to a previous time. We found no infection, but your WBC count improved to 14 after getting IV antibiotics. Please continue another 5 days of antibiotics. Please have your primary care provider make a referral to a hemotologist (a blood specialist) to be evaluated for hereditary reasons, bone marrow dysfunction, any types of blood cancers, or infectious reasons. Other reasons that can lead to elevated WBC counts is stress, physical or emotional, vigorous exercise, cigarette smoking, drug use, steroid use, or stimulant drug use. I have put in a referral for a diabetic nurse educator, please expect a call as early as tomorrow regarding this. You can return to work tomorrow, but I usually write for patients to take off until they follow up with their primary. Please see your PCP within one week. - TIME SPENT Time Spent in Discharge (Minutes): 45
[2019-03-20 18:43] VITALS: BP 99/53
== END 2019-03-20 18:15 | disposition home or self-care (01) | DRG 639 ==
LOC: ED 04:17 → ICU 05:33 → MS2 03-20 05:51
PROVIDERS: ADMIT Internal Medicine; ATTEND Nurse Practitioner
DX: E10.10 Type 1 diabetes mellitus with ketoacidosis without coma (principal); D72.828 Other elevated white blood cell count; I37.8 Other nonrheumatic pulmonary valve disorders; E87.5 Hyperkalemia; E86.0 Dehydration; T38.3X6A Underdosing of insulin and oral hypoglycemic [antidiabetic] drugs, initial encounter; Y92.009 Unspecified place in unspecified non-institutional (private) residence as the place of occurrence of the external cause; Z79.4 Long term (current) use of insulin
CPT/HCPCS: 36415; 71045; 80048; 80053; 81001; 82009; 82803; 83036; 83605; 83690; 83735; 84100; 84443; 84478; 85025; 86140; 87040; 87150; 93005; 96361; 96374; 99284; 99285; A9270; J1815; J3370; 80202; 81003; 82947; 87086; 99283

== ENCOUNTER 2019-08-18 11:56 | Outpatient (CLI) | payer OTHER | END 2019-08-18 11:57 | disposition EMS.NT | LOC: EMS 11:56 | PROVIDERS: ATTEND Surgery | DX: R73.09 Other abnormal glucose (principal) ==

== ENCOUNTER 2020-09-21 14:37 | Inpatient (IN) | payer OTHER ==
[2020-09-21] MEDS ORDERED: ONDANSETRON 4 MG/2 ML VIAL IVP STA (14:50)
[2020-09-21] MEDS ORDERED: SODIUM CHLORIDE 0.9% 1,000 ML IV STA ×2 (14:50→15:33)
[2020-09-21] MEDS ORDERED: HYDROmorphone 1 MG/ML CARPUJECT IVP STA (14:50)
--- NOTE | 2020-09-21 14:54 | ED Physician Documentation ---
History of Present Illness - Stated complaint Stated Complaint: POSSIBLE DKA - Chief complaint Chief Complaint: General - History obtained from History obtained from: Patient - Additonal information Additional information: 24-year-old gentleman with a history of type 1 diabetes has been vomiting today with high blood sugars in the 400s. Is not sure what caused it. Usually takes between 15 and 20 units of Lantus at night and then sliding scale. He is on no other medications. Denies diarrhea. Does have diffuse abdominal pain. Review of Systems Ten Systems: 10 systems reviewed and negative Constitutional: reports: Sweats. denies: Fever Nose: denies: Rhinorrhea / runny nose Throat: denies: Sore throat Cardiac: denies: Chest pain / pressure Respiratory: denies: Dyspnea, Cough GI: reports: Abdominal Pain, Nausea, Vomiting. denies: Diarrhea, Hematemesis, Bloody / black stool PD PAST MEDICAL HISTORY - Past Medical History Cardiovascular: None Respiratory: None Neuro: None Endocrine/Autoimmune: Type 1 diabetes GI: None : None HEENT: None Psych: None Musculoskeletal: None Derm: None - Past Surgical History Past Surgical History: No - Present Medications Home Medications: Ambulatory Orders Medication Instructions Recorded Confirmed Insulin Lispro [Humalog Kwikpen 0 - 10 units SUBQ ACHS 11/13/18 03/19/19 U-100] Insulin Glargine [Lantus Solostar] 25 unit SUBQ QPM #1 each 03/20/19 03/19/19 Potassium Chloride 10 meq PO ONCE #3 tablet.er 03/20/19 Saccharomyces Boulardii [Florastor] 250 mg PO BID #60 capsule 03/20/19 Sulfamethoxazole/Trimethoprim 1 each PO BID #10 tablet 03/20/19 [Bactrim 400-80 mg Tablet] - Allergies Allergies/Adverse Reactions: Allergies Allergy/AdvReac Type Severity Reaction Status Date / Time No Known Drug Allergies Allergy Verified 09/21/20 14:46 - Social History Does the pt smoke?: No Smoking Status: Never smoker Does the pt drink ETOH?: No Does the pt have substance abuse?: No - Immunizations Immunizations are current?: Yes - POLST Patient has POLST: Yes POLST Status: Full Code PD ED PE NORMAL - Vitals Vital signs reviewed: Yes - General General: Alert and oriented X 3, Other (Is uncomfortable but not [place]) - HEENT HEENT: PERRL, EOMI - Neck Neck: Supple, no meningeal sign, No bony TTP - Cardiac Cardiac: Other (tachycardic) - Respiratory Respiratory: No respiratory distress, Clear bilaterally - Abdomen Abdomen: Soft, Non tender - Back Back: No CVA TTP, No spinal TTP - Derm Derm: Normal color, Warm and dry - Extremities Extremities: No edema, No calf tenderness / cord - Neuro Neuro: Alert and oriented X 3, Normal speech Results - Vitals Vitals: Vital Signs - 24 hr 09/21/20 09/21/20 09/21/20 14:46 15:21 15:30 Temperature 36.4 C L Heart Rate 133 H 130 H 122 H Respiratory 14 20 22 Rate Blood Pressure 122/73 140/83 H 142/73 H O2 Saturation 100 100 98 Oxygen O2 Source Room air - Labs Labs: Laboratory Tests 09/21/20 09/21/20 09/21/20 14:45 14:58 14:58 WBC 26.1 H RBC 5.47 Hgb 16.4 Hct 52.2 H MCV 95.4 H MCH 30.0 MCHC 31.4 L RDW 12.3 Plt Count 347 MPV 10.8 Neut # (Auto) Not Reportable Lymph # (Auto) Not Reportable Mcdowell # (Auto) Not Reportable Eos # (Auto) Not Reportable Baso # (Auto) Not Reportable Absolute Nucleated RBC Not Reportable Total Counted 100 Band Neuts % (Manual) 5 Abnorm Lymph % (Manual) 0 Nucleated RBC % Not Reportable Neutrophils # (Manual) 24.5 H Lymphocytes # (Manual) 1.3 L Monocytes # (Manual) 0.3 Eosinophils # (Manual) 0.0 Basophils # (Manual) 0.0 Differential Comment MANUAL DIFFERENTIAL WBC Morphology NORMAL APPEARANCE Platelet Estimate NORMAL (130-450,000) Platelet Morphology NORMAL APPEARANCE RBC Morph Micro Appear NORMAL APPEARANCE VBG pH VBG pCO2 VBG pO2 VBG HCO3 VBG Total CO2 VBG O2 Saturation VBG Base Excess Sodium 138 Potassium 5.6 H Chloride 99 L Carbon Dioxide 12 L* Anion Gap 27.0 H BUN 23 H Creatinine 1.3 H Estimated GFR (MDRD) 69 L Glucose 492 H POC Whole Bld Glucose 424 H Calcium 9.8 Phosphorus 7.0 H Magnesium 2.4 Total Bilirubin 1.8 H AST 62 H ALT 48 Alkaline Phosphatase 86 Total Protein 9.2 H Albumin 5.9 H Globulin 3.3 Albumin/Globulin Ratio 1.8 Lipase Serum Ketones SMALL H 09/21/20 09/21/20 09/21/20 14:58 14:58 15:33 WBC RBC Hgb Hct MCV MCH MCHC RDW Plt Count MPV Neut # (Auto) Lymph # (Auto) Mcdowell # (Auto) Eos # (Auto) Baso # (Auto) Absolute Nucleated RBC Total Counted Band Neuts % (Manual) Abnorm Lymph % (Manual) Nucleated RBC % Neutrophils # (Manual) Lymphocytes # (Manual) Monocytes # (Manual) Eosinophils # (Manual) Basophils # (Manual) Differential Comment WBC Morphology Platelet Estimate Platelet Morphology RBC Morph Micro Appear VBG pH 7.021 L VBG pCO2 39.2 L VBG pO2 32.9 VBG HCO3 9.9 L VBG Total CO2 11.1 L VBG O2 Saturation 52.3 L VBG Base Excess -20.6 L Sodium Potassium Chloride Carbon Dioxide Anion Gap BUN Creatinine Estimated GFR (MDRD) Glucose POC Whole Bld Glucose 538 H* Calcium Phosphorus Magnesium Total Bilirubin AST ALT Alkaline Phosphatase Total Protein Albumin Globulin Albumin/Globulin Ratio Lipase 15 L Serum Ketones PD MEDICAL DECISION MAKING - ED course ED course: 4-year-old gentleman with history of diabetes presents with potential diabetic ketoacidosis and found to be in same with a venous pH of 7.02, glucose around 500, bicarb of 12. He is somewhat hyperkalemic which should be fixed with the IV fluids and insulin. Also mild acute kidney injury. He received 1 L of normal saline wide open and then to 250 mL/h followed by an insulin drip at 7 units/h. Spoke with Dr. Liao for admission at 3:35 PM. - Critical Care Time(min): 40 Time Includes: Direct patient care, Review records, Reassess patient, Document care, Coordinate care, Medical consult Data interpretation: Labs, Pulse ox Procedures included in critical care time: Peripheral IV Departure - Departure Disposition: 66 [facility] DC/Xfer Clinical Impression: DKA (diabetic ketoacidoses) Qualifiers: Diabetes mellitus type: type 1 Diabetes mellitus complication detail: without coma Qualified Code(s): E10.10 - Type 1 diabetes mellitus with ketoacidosis without coma Condition: Serious
[2020-09-21 15:07] LABS: BASOPHILS % (AUTO) 0.2 %; EOSINOPHILS % (AUTO) 0.1 %; HGB - HEMOGLOBIN 16.4 g/dL (14.0-18.0); LYMPHOCYTES % (AUTO) 6.2 %; MEAN CORPUSCULAR HGB CONC 31.4 g/dL (32.0-36.0); MEAN CORPUSCULAR VOLUME 95.4 fL (80.0-94.0); MEAN PLATELET VOLUME 10.8 fL (7.4-11.4); MONOCYTES % (AUTO) 2.8 %; NEUTROPHILS % (AUTO) 89.4 %; PLT - PLATELET COUNT 347 10^3/uL (130-450); RED BLOOD COUNT 5.47 10^6/uL (4.70-6.10); RED CELL DISTRIBUTION WIDTH 12.3 % (12.0-15.0); WHITE BLOOD COUNT 26.1 x10^3/uL (4.8-10.8)
[2020-09-21 15:09] LABS: VBG PCO2 39.2 mmHg (41-51); VBG PH 7.021 (7.31-7.41); VBG PO2 32.9 mmHg (25-47)
[2020-09-21 15:10] LABS: VBG BASE EXCESS -20.6 mmol/L (-2 - +2); VBG TOTAL CO2 11.1 mmol/L (24-29)
[2020-09-21 15:13] LABS: ABNORMAL LYMPHS % (MANUAL) 0 %
[2020-09-21 15:22] LABS: KETONES, SERUM (ACETEST) SMALL (NEGATIVE)
[2020-09-21 15:32] LABS: ALBUMIN 5.9 g/dL (3.2-5.5); ALBUMIN/GLOBULIN RATIO 1.8 (1.0-2.2); ALKALINE PHOSPHATASE 86 IU/L (42-121); ALT ALANINE AMINOTRANSFERASE 48 IU/L (10-60); AST ASPARTATE AMINOTRANSFERASE 62 IU/L (10-42); BILIRUBIN,TOTAL 1.8 mg/dL (0.2-1.0); BUN - BLOOD UREA NITROGEN 23 mg/dL (6-20); CALCIUM 9.8 mg/dL (8.5-10.3); CHLORIDE 99 mmol/L (101-111); CREATININE 1.3 mg/dL (0.6-1.2); GLUCOSE 492 mg/dL (70-100); MAGNESIUM 2.4 mg/dL (1.7-2.8); SODIUM 138 mmol/L (135-145); TOTAL PROTEIN 9.2 g/dL (6.7-8.2)
[2020-09-21] MEDS ORDERED: INSULIN REGULAR HUMAN 100 UNIT in SODIUM CHLORIDE 0.9% 100ML 99 ML IV STA (15:33)
[2020-09-21 15:34] LABS: CARBON DIOXIDE - CO2 12 mmol/L (21-32)
[2020-09-21] MEDS ORDERED: ACETAMINOPHEN 325 MG TABLET PO PRN (15:37)
[2020-09-21] MEDS ORDERED: oxyCODONE 5 MG TABLET PO PRN (15:37)
[2020-09-21] MEDS ORDERED: MORPHINE 2 MG/ML CARPUJECT IVP PRN (15:37)
[2020-09-21] MEDS ORDERED: SODIUM CHLORIDE FLUSH 0.9% 10 ML SYRINGE IVP PRN (15:37)
[2020-09-21] MEDS ORDERED: ONDANSETRON 4 MG/2 ML VIAL IVP PRN (15:37)
[2020-09-21 15:39] LABS: BAND NEUTROPHILS % (MANUAL) 5 %; LYMPHOCYTES # (MANUAL) 1.3 10^3/uL (1.5-3.5); LYMPHOCYTES % (MANUAL) 5 %; MONOCYTES # (MANUAL) 0.3 10^3/uL (0.0-1.0)
[2020-09-21 15:41] LABS: DIFFERENTIAL COMMENT MANUAL DIFFERENTIAL; PLATELET ESTIMATE, MANUAL NORMAL (130-450,000) (NORMAL); PLATELET MORPHOLOGY NORMAL APPEARANCE (NORMAL); RBC MORPHOLOGY (MULTIPLE) NORMAL APPEARANCE (NORMAL)
--- NOTE | 2020-09-21 15:47 | HISTORY & PHYSICAL EXAMINATION ---
Chief Complaint - Chief Complaint Chief Complaint: Nausea and vomiting. History of Present Illness - Admitted From Admitted From:: Home - History Obtained From Records Reviewed: Yes History obtained from: Patient, ER Physician, EMR - History of Present Illness HPI Comment/Other: This is a 24-year-old male with a past medical history significant for type 1 diabetes mellitus who presents today complaining of nausea and vomiting associated with abdominal pain that began this morning. He states he went to sleep feeling well last night. His blood glucose around 200 and he took 10 units of short acting insulin as well as 15 units of Lantus. He reports that this morning he woke up feeling nauseous with abdominal pain and began to have nonbloody emesis. He did not check his blood glucose this morning as he was not feeling well. He decided to come to the emergency department due to the nausea and vomiting. He states that he is compliant with his insulin. He was diagnosed with type 1 diabetes mellitus back in 2017 or 2017 when he was admi tted for diabetic ketoacidosis with a blood glucose of 1100. He states this will be his third or fourth admission for diabetic ketoacidosis. He believes his A1c is approximately 11%. He is followed at the [place] by an braid pattern setter and primary care provider although he has not seen either of them since approximately January. He reports no chest pain or dyspnea. Denies any cough or recent sick contacts. Reports no fevers although he did have chills this morning. Denies any dizziness or lightheadedness. Reports no dysuria, urgency, frequency. He states abdominal pain has now improved. In the emergency department, he was found to be afebrile but tachycardic with a heart rate in the 130s. He was not tachypneic and saturating well on room air. Labs were significant for a white count of 26,000. VBG revealed a pH 7.02. His BMP revealed a bicarbonate of 12 and anion gap of 27. His creatinine was 1.3. His blood glucose was 492. He was given a liter of IV fluids and IV insulin in the emergency department. Given the concern for diabetic ketoacidosis, medicine was consulted for admission. History - Past Medical History Cardiovascular: reports: None Respiratory: reports: None Neuro: reports: None Endocrine/Autoimmune: reports: Type 1 diabetes GI: reports: None : reports: None HEENT: reports: None Psych: reports: None Musculoskeletal: reports: None Derm: reports: None MRSA Hx?: No - Family & Social History Family History: Mother: Alive and Well, Father: Alive and Well, Brother: Alive and Well Family History Comment/Other: He reports there is a history of heart disease on his father side although his father is healthy. No other significant family history. No family history of diabetes. Living arrangement: At home Living Situation: With family Social History Notes: Lives at home with his family. He works for [employer] and has been there for the past 2-1/2 years. He is a non-smoker and rarely drinks alcohol. Denies illicit drug use. - Substance History Use: Uses substance without health or social issues: NONE - POLST Patient has POLST: Yes POLST Status: Full Code Meds/Allgy - Home Medications Home Medications: Ambulatory Orders Medication Instructions Recorded Confirmed Insulin Lispro [Humalog Kwikpen 0 - 10 units SUBQ ACHS 11/13/18 03/19/19 U-100] Insulin Glargine [Lantus Solostar] 25 unit SUBQ QPM #1 each 03/20/19 03/19/19 Potassium Chloride 10 meq PO ONCE #3 tablet.er 03/20/19 Saccharomyces Boulardii [Florastor] 250 mg PO BID #60 capsule 03/20/19 Sulfamethoxazole/Trimethoprim 1 each PO BID #10 tablet 03/20/19 [Bactrim 400-80 mg Tablet] - Allergies Allergies/Adverse Reactions: Allergies Allergy/AdvReac Type Severity Reaction Status Date / Time No Known Drug Allergies Allergy Verified 09/21/20 14:46 Review of Systems - Constitutional Constitutional: reports: Chills, Poor appetite. denies: Fatigue, Fever - Eyes Eyes: denies: Blurred vision - Ears, Nose & Throat Ears, Nose & Throat: denies: Nasal discharge, Postnasal drainage, Sore throat - Cardiovascular Cariovascular: denies: Chest pain, Edema, Lightheadedness, Exertional dyspnea, Decr. exercise tolerance - Respiratory Respiratory: denies: Cough, SOB at rest, SOB with exertion - Gastrointestinal Gastrointestinal: reports: Abdominal pain, Nausea, Vomiting. denies: Bile emesis, Giles blood emesis - Genitourinary Genitourinary: denies: Dysuria, Frequency, Urgency, Hematuria - Musculoskeletal Musculoskeletal: denies: Muscle weakness - Integumentary Integumentary: denies: Rash - Neurological Neurological: denies: General weakness, Focal weakness, Dizziness, Numbness - Endocrine Endocrine: denies: Polyuria - All Other Systems All Other Systems: reports: Reviewed and negative Prior Level of Functionality: He is independent with his ADLs. Exam - Vital Signs Reviewed Vital Signs: Yes Vital Signs: Vital Signs x48h Temp Pulse Resp BP Pulse Ox 09/21/20 15:30 122 H 22 142/73 H 98 09/21/20 15:21 130 H 20 140/83 H 100 09/21/20 14:46 36.4 C L 133 H 14 122/73 100 - Physical Exam General Appearance: positive: No acute distress, Alert Eyes Bilateral: positive: Normal inspection, Conjunctivae nml ENT: positive: ENT inspection nml Neck: positive: Nml inspection Respiratory: positive: No respiratory distress. negative: Wheezes, Rales Cardiovascular: positive: No murmur, Tachycardia. negative: Bradycardia, Systolic murmur Abdomen: positive: No distention, Tenderness (Minimal diffuse tenderness.). negative: Non-tender, Guarding, Rebound, Abnml bowel sounds Skin: positive: Warm, Dry Extremities: positive: Full ROM, No pedal edema Neurologic/Psychiatric: positive: Oriented x3, Motor nml Conclusion/Plan - Problem List (1) DKA (diabetic ketoacidoses) Conclusion/Plan: He is clearly in DKA although what triggered it is not clear. We will admit him to intensive care unit for IV fluids and IV insulin. Check his blood glucose every hour. We will check BMP every 4 hours. N.p.o. until his anion gap closes and then we will start him on a clear liquid diet as tolerated. Zofran as needed for nausea. I have consulted nutrition and community health educator. Qualifiers: Diabetes mellitus type: type 1 Diabetes mellitus complication detail: without coma Qualified Code(s): E10.10 - Type 1 diabetes mellitus with ketoacidosis without coma (2) Leukocytosis Conclusion/Plan: His white count is elevated at greater than 20,000. This is likely reactive in nature secondary to diabetic ketoacidosis. No obvious evidence of infection at this time. We will hold off on antibiotics once he spikes a fever or if there is an obvious source of infection Qualifiers: Leukocytosis type: bandemia Qualified Code(s): D72.825 - Bandemia (3) Acute kidney injury Conclusion/Plan: This likely prerenal injury due to poor oral intake and nausea/vomiting. His creatinine is elevated compared to baseline. We will continue with IV hydration. Monitor renal function. (4) Type 1 diabetes mellitus Conclusion/Plan: We will treat his diabetic ketoacidosis as mentioned above. We will check an A1c. We will asked the community health educator to see him if he remains hospitalized until Thursday. He will otherwise need close follow-up with braid pattern setter and will place an outpatient community health educator consult. (5) Hyperkalemia Conclusion/Plan: This is secondary to his diabetic ketoacidosis and acute kidney injury. This should improve with IV fluids and IV insulin. We will monitor his potassium closely as he will require aggressive replacement. - Lab Results Lab results reviewed: Yes Tod Bones: 09/21/20 14:58 09/21/20 14:58 Core Measures - Anticipated LOS I expect patient to be DC'd or transferred within 96 hours.: Yes - Issues Hospital Issues and Management Plan: 24-year-old male with type 1 diabetes mellitus presents with diabetic ketoacidosis. Will admit to the ICU for IV insulin and IV fluids. - DVT/VTE - Prophylaxis VTE/DVT Device ordered at admit?: Yes VTE/DVT Prophylaxis med ordered at admit?: Yes
[2020-09-21] MEDS: SODIUM CHLORIDE 0.9% 1,000 ML IV SCH ×2 (16:30→18:45)
[2020-09-21] MEDS ORDERED: DEXTROSE 5%-0.45% NACL 1,000 ML IV SCH (17:00)
[2020-09-21] MEDS ORDERED: SODIUM CHLORIDE 0.9% 1,000 ML IV ONE ×2 (17:00→18:20)
--- NOTE | 2020-09-21 17:17 | XRAY Report ---
PROCEDURE: Chest 1 View X-Ray INDICATIONS: Tachypneic. DKA. Leukocytosis. TECHNIQUE: One view of the chest was acquired. COMPARISON: 03/19/2019, 06/12/2018 FINDINGS: Surgical changes and devices: None. Lungs and pleura: No pleural effusions or pneumothorax. Lungs are clear. Mediastinum: Mediastinal contours appear normal. Heart size is normal. Bones and chest wall: No suspicious bony lesions. Overlying soft tissues appear unremarkable. IMPRESSION: Portable chest within normal limits for age. Reviewed by: Nate Valdez MD on 09/21/2020 4:16 PM [facility] Approved by: Nate Valdez MD on 09/21/2020 4:16 PM [facility] Station ID: [id number]
[2020-09-21 18:28] LABS: CALCIUM 8.4 mg/dL (8.5-10.3); CREATININE 1.1 mg/dL (0.6-1.2); MAGNESIUM 2.1 mg/dL (1.7-2.8)
[2020-09-21] MEDS ORDERED: POTASSIUM CHLOR 10 MEQ/100 ML 10 MEQ/100 ML BAG IV ONE (18:37)
[2020-09-21] MEDS: DEXTROSE 5%-0.45% NACL 1,000 ML IV SCH (20:17)
[2020-09-21 22:23] LABS: CREATININE 0.8 mg/dL (0.6-1.2)
[2020-09-21] MEDS: SODIUM CHLORIDE FLUSH 0.9% 10 ML SYRINGE IVP SCH (23:20)
[2020-09-22 02:13] LABS: CALCIUM 8.4 mg/dL (8.5-10.3); CREATININE 0.7 mg/dL (0.6-1.2)
[2020-09-22] MEDS: SODIUM CHLORIDE 0.9% 1,000 ML IV SCH (03:50)
[2020-09-22 04:36] LABS: BASOPHILS % (AUTO) 0.2 %; EOSINOPHILS % (AUTO) 0.1 %; HGB - HEMOGLOBIN 12.4 g/dL (14.0-18.0); LYMPHOCYTES # (AUTO) 2.7 10^3/uL (1.5-3.5); LYMPHOCYTES % (AUTO) 16.8 %; MEAN CORPUSCULAR HEMOGLOBIN 30.6 pg (27.0-31.0); MEAN CORPUSCULAR HGB CONC 33.3 g/dL (32.0-36.0); MEAN CORPUSCULAR VOLUME 91.9 fL (80.0-94.0); MEAN PLATELET VOLUME 10.4 fL (7.4-11.4); MONOCYTES # (AUTO) 1.2 10^3/uL (0.0-1.0); MONOCYTES % (AUTO) 7.8 %; NEUTROPHILS # (AUTO) 11.9 10^3/uL (1.5-6.6); NEUTROPHILS % (AUTO) 74.5 %; PLT - PLATELET COUNT 219 10^3/uL (130-450); RED BLOOD COUNT 4.05 10^6/uL (4.70-6.10); RED CELL DISTRIBUTION WIDTH 12.4 % (12.0-15.0); WHITE BLOOD COUNT 15.9 x10^3/uL (4.8-10.8)
[2020-09-22 04:47] LABS: CALCIUM 8.1 mg/dL (8.5-10.3); CREATININE 0.7 mg/dL (0.6-1.2); MAGNESIUM 2.2 mg/dL (1.7-2.8); PHOSPHORUS 2.9 mg/dL (2.5-4.6)
[2020-09-22] MEDS ORDERED: INSULIN REGULAR HUMAN 100 UNIT in SODIUM CHLORIDE 0.9% 100ML 99 ML IV SCH (05:00)
[2020-09-22] MEDS: DEXTROSE 5%-0.45% NACL 1,000 ML IV SCH (05:26)
[2020-09-22] MEDS ORDERED: INSULIN GLARGINE 300 UNIT/3 ML PEN SUBQ SCH ×3 (07:00→21:00)
--- NOTE | 2020-09-22 07:16 | PROVIDER PROGRESS NOTE ---
Subjective - Prog Note Date Prog Note Date: 09/22/20 - Subjective Subjective: He reports feeling well. Denies any nausea or vomiting. Has no more abdominal pain. Tolerated breakfast well. Current Medications - Current Medications Current Medications: Active Medications Acetaminophen (Acetaminophen 325 Mg Tablet) 650 mg PO Q4HR PRN PRN Reason: Pain 1 to 4 Enoxaparin Sodium (Enoxaparin 40 Mg/0.4 Ml Syringe) 40 mg SUBQ DAILY [facility] Last Admin: 09/22/20 10:02 Dose: 40 mg Documented by: Insulin Aspart (Insulin Aspart 300 Unit/3 Ml Pen) 1 - 9 unit SUBQ 0800,1200,1700,2100 [facility]; Protocol Last Admin: 09/22/20 08:14 Dose: 7 unit Documented by: Insulin Aspart (Insulin Aspart 300 Unit/3 Ml Pen) 4 unit SUBQ TIDWM [facility] Last Admin: 09/22/20 08:15 Dose: 4 unit Documented by: Insulin Glargine (Insulin Glargine 300 Unit/3 Ml Pen) 15 unit SUBQ DAILY [facility] Last Admin: 09/22/20 06:42 Dose: 15 unit Documented by: Morphine Sulfate (Morphine 2 Mg/Ml Carpuject) 1 mg IVP Q4HR PRN PRN Reason: Pain 8 to 10 Ondansetron HCl (Ondansetron 4 Mg/2 Ml Vial) 4 mg IVP Q6HR PRN PRN Reason: Nausea / Vomiting Oxycodone HCl (Oxycodone 5 Mg Tablet) 5 mg PO Q4HR PRN PRN Reason: Pain 5 to 7 Sodium Chloride (Sodium Chloride Flush 0.9% 10 Ml Syringe) 10 ml IVP 0100,0900,1700 [facility] Last Admin: 09/22/20 10:03 Dose: 20 ml Documented by: Sodium Chloride (Sodium Chloride Flush 0.9% 10 Ml Syringe) 10 ml IVP PRN PRN PRN Reason: NEEDED PER PROVIDER ORDERS Insulin Aspart [NovoLOG] 0 - 10 units SQ .BEFORE MEAL AND BED 09/22/20 Insulin Glargine [Lantus] 25 units SQ QPM 09/22/20 Objective - Vital Signs/Intake & Output Reviewed Vital Signs: Yes Vital Signs: Vital Signs Pulse Resp BP Pulse Ox 09/22/20 07:00 76 10 L 106/68 100 09/22/20 06:00 71 14 103/61 98 09/22/20 05:00 59 L 16 96/69 100 09/22/20 04:00 78 14 106/86 H 100 Intake & Output: Intake & Output 09/19/20 09/20/20 09/21/20 09/22/20 23:59 23:59 23:59 23:59 Intake Total 4026.817 1076.75 Output Total 1800 0 Balance 2226.817 1076.75 - Objective General Appearance: positive: No acute distress, Alert Eyes Bilateral: positive: Normal inspection, Conjunctivae nml ENT: positive: ENT inspection nml Neck: positive: Nml inspection Respiratory: positive: No respiratory distress. negative: Wheezes, Rales Cardiovascular: positive: Regular rate & rhythm, No murmur. negative: Tachycardia, Bradycardia, Systolic murmur Abdomen: positive: Non-tender, No distention. negative: Tenderness Skin: positive: Warm, Dry Extremities: positive: No pedal edema - Lab Results Fish Bones: 09/22/20 04:05 09/22/20 04:05 Other Labs: Lab Results x24hrs 09/22/20 09/22/20 09/22/20 Range/Units 06:17 04:05 04:05 WBC 15.9 H (4.8-10.8) x10^3/uL RBC 4.05 L (4.70-6.10) 10^6/uL Hgb 12.4 L (14.0-18.0) g/dL Hct 37.2 L (42.0-52.0) % MCV 91.9 (80.0-94.0) fL MCH 30.6 (27.0-31.0) pg MCHC 33.3 (32.0-36.0) g/dL RDW 12.4 (12.0-15.0) % Plt Count 219 (130-450) 10^3/uL MPV 10.4 (7.4-11.4) fL Neut # (Auto) 11.9 H Lymph # (Auto) 2.7 [place] # (Auto) 1.2 H Eos # (Auto) 0.0 Baso # (Auto) 0.0 Absolute Nucleated RBC 0.00 Total Counted Band Neuts % (Manual) (0 - 10) % Abnorm Lymph % (Manual) % Nucleated RBC % 0.0 Neutrophils # (Manual) (1.5-6.6) 10^3/uL Lymphocytes # (Manual) (1.5-3.5) 10^3/uL Monocytes # (Manual) (0.0-1.0) 10^3/uL Eosinophils # (Manual) (0-0.7) 10^3/uL Basophils # (Manual) (0-0.1) 10^3/uL Differential Comment WBC Morphology (NORMAL) Platelet Estimate (NORMAL) Platelet Morphology (NORMAL) RBC Morph Micro Appear (NORMAL) VBG pH (7.31-7.41) VBG pCO2 (41-51) mmHg VBG pO2 (25-47) mmHg VBG HCO3 (23-28) mmol/L VBG Total CO2 (24-29) mmol/L VBG O2 Saturation (60-80) % VBG Base Excess (-2 - +2) mmol/L Sodium 135 (135-145) mmol/L Potassium 3.8 (3.5-5.0) mmol/L Chloride 111 (101-111) mmol/L Carbon Dioxide 18 L (21-32) mmol/L Anion Gap 6.0 (6-13) BUN 14 (6-20) mg/dL Creatinine 0.7 (0.6-1.2) mg/dL Estimated GFR (MDRD) 141 (>89) Glucose 159 H (70-100) mg/dL POC Whole Bld Glucose 247 H (70 - 100) mg/dL Calcium 8.1 L (8.5-10.3) mg/dL Phosphorus 2.9 (2.5-4.6) mg/dL Magnesium 2.2 (1.7-2.8) mg/dL Total Bilirubin (0.2-1.0) mg/dL AST (10-42) IU/L ALT (10-60) IU/L Alkaline Phosphatase (42-121) IU/L Total Protein (6.7-8.2) g/dL Albumin (3.2-5.5) g/dL Globulin (2.1-4.2) g/dL Albumin/Globulin Ratio (1.0-2.2) Lipase (22-51) U/L Nasal Screen MRSA (PCR) (NEGATIVE) Serum Ketones (NEGATIVE) 12/26/20 12/26/20 12/26/20 Range/Units 02:00 01:58 01:13 WBC (4.8-10.8) x10^3/uL RBC (4.70-6.10) 10^6/uL Hgb (14.0-18.0) g/dL Hct (42.0-52.0) % MCV (80.0-94.0) fL MCH (27.0-31.0) pg MCHC (32.0-36.0) g/dL RDW (12.0-15.0) % Plt Count (130-450) 10^3/uL MPV (7.4-11.4) fL Neut # (Auto) Lymph # (Auto) [place] # (Auto) Eos # (Auto) Baso # (Auto) Absolute Nucleated RBC Total Counted Band Neuts % (Manual) (0 - 10) % Abnorm Lymph % (Manual) % Nucleated RBC % Neutrophils # (Manual) (1.5-6.6) 10^3/uL Lymphocytes # (Manual) (1.5-3.5) 10^3/uL Monocytes # (Manual) (0.0-1.0) 10^3/uL Eosinophils # (Manual) (0-0.7) 10^3/uL Basophils # (Manual) (0-0.1) 10^3/uL Differential Comment WBC Morphology (NORMAL) Platelet Estimate (NORMAL) Platelet Morphology (NORMAL) RBC Morph Micro Appear (NORMAL) VBG pH (7.31-7.41) VBG pCO2 (41-51) mmHg VBG pO2 (25-47) mmHg VBG HCO3 (23-28) mmol/L VBG Total CO2 (24-29) mmol/L VBG O2 Saturation (60-80) % VBG Base Excess (-2 - +2) mmol/L Sodium 137 (135-145) mmol/L Potassium 4.2 (3.5-5.0) mmol/L Chloride 107 (101-111) mmol/L Carbon Dioxide 17 L (21-32) mmol/L Anion Gap 13.0 (6-13) BUN 13 (6-20) mg/dL Creatinine 0.7 (0.6-1.2) mg/dL Estimated GFR (MDRD) 141 (>89) Glucose 143 H (70-100) mg/dL POC Whole Bld Glucose 138 H 131 H (70 - 100) mg/dL Calcium 8.4 L (8.5-10.3) mg/dL Phosphorus (2.5-4.6) mg/dL Magnesium (1.7-2.8) mg/dL Total Bilirubin (0.2-1.0) mg/dL AST (10-42) IU/L ALT (10-60) IU/L Alkaline Phosphatase (42-121) IU/L Total Protein (6.7-8.2) g/dL Albumin (3.2-5.5) g/dL Globulin (2.1-4.2) g/dL Albumin/Globulin Ratio (1.0-2.2) Lipase (22-51) U/L Nasal Screen MRSA (PCR) (NEGATIVE) Serum Ketones (NEGATIVE) 09/22/20 09/21/20 09/21/20 Range/Units 00:06 22:00 17:55 WBC (4.8-10.8) x10^3/uL RBC (4.70-6.10) 10^6/uL Hgb (14.0-18.0) g/dL Hct (42.0-52.0) % MCV (80.0-94.0) fL MCH (27.0-31.0) pg MCHC (32.0-36.0) g/dL RDW (12.0-15.0) % Plt Count (130-450) 10^3/uL MPV (7.4-11.4) fL Neut # (Auto) Lymph # (Auto) [place] # (Auto) Eos # (Auto) Baso # (Auto) Absolute Nucleated RBC Total Counted Band Neuts % (Manual) (0 - 10) % Abnorm Lymph % (Manual) % Nucleated RBC % Neutrophils # (Manual) (1.5-6.6) 10^3/uL Lymphocytes # (Manual) (1.5-3.5) 10^3/uL Monocytes # (Manual) (0.0-1.0) 10^3/uL Eosinophils # (Manual) (0-0.7) 10^3/uL Basophils # (Manual) (0-0.1) 10^3/uL Differential Comment WBC Morphology (NORMAL) Platelet Estimate (NORMAL) Platelet Morphology (NORMAL) RBC Morph Micro Appear (NORMAL) VBG pH (7.31-7.41) VBG pCO2 (41-51) mmHg VBG pO2 (25-47) mmHg VBG HCO3 (23-28) mmol/L VBG Total CO2 (24-29) mmol/L VBG O2 Saturation (60-80) % VBG Base Excess (-2 - +2) mmol/L Sodium 137 (135-145) mmol/L Potassium 4.5 (3.5-5.0) mmol/L Chloride 109 (101-111) mmol/L Carbon Dioxide 15 L (21-32) mmol/L Anion Gap 13.0 (6-13) BUN 16 (6-20) mg/dL Creatinine 0.8 (0.6-1.2) mg/dL Estimated GFR (MDRD) 121 (>89) Glucose 156 H (70-100) mg/dL POC Whole Bld Glucose 117 H (70 - 100) mg/dL Calcium 8.0 L (8.5-10.3) mg/dL Phosphorus 3.5 (2.5-4.6) mg/dL Magnesium 2.0 (1.7-2.8) mg/dL Total Bilirubin (0.2-1.0) mg/dL AST (10-42) IU/L ALT (10-60) IU/L Alkaline Phosphatase (42-121) IU/L Total Protein (6.7-8.2) g/dL Albumin (3.2-5.5) g/dL Globulin (2.1-4.2) g/dL Albumin/Globulin Ratio (1.0-2.2) Lipase (22-51) U/L Nasal Screen MRSA (PCR) (NEGATIVE) Serum Ketones (NEGATIVE) 09/21/20 09/21/20 09/21/20 Range/Units 17:55 17:00 16:10 WBC (4.8-10.8) x10^3/uL RBC (4.70-6.10) 10^6/uL Hgb (14.0-18.0) g/dL Hct (42.0-52.0) % MCV (80.0-94.0) fL MCH (27.0-31.0) pg MCHC (32.0-36.0) g/dL RDW (12.0-15.0) % Plt Count (130-450) 10^3/uL MPV (7.4-11.4) fL Neut # (Auto) Lymph # (Auto) [place] # (Auto) Eos # (Auto) Baso # (Auto) Absolute Nucleated RBC Total Counted Band Neuts % (Manual) (0 - 10) % Abnorm Lymph % (Manual) % Nucleated RBC % Neutrophils # (Manual) (1.5-6.6) 10^3/uL Lymphocytes # (Manual) (1.5-3.5) 10^3/uL Monocytes # (Manual) (0.0-1.0) 10^3/uL Eosinophils # (Manual) (0-0.7) 10^3/uL Basophils # (Manual) (0-0.1) 10^3/uL Differential Comment WBC Morphology (NORMAL) Platelet Estimate (NORMAL) Platelet Morphology (NORMAL) RBC Morph Micro Appear (NORMAL) VBG pH (7.31-7.41) VBG pCO2 (41-51) mmHg VBG pO2 (25-47) mmHg VBG HCO3 (23-28) mmol/L VBG Total CO2 (24-29) mmol/L VBG O2 Saturation (60-80) % VBG Base Excess (-2 - +2) mmol/L Sodium 138 (135-145) mmol/L Potassium 4.9 (3.5-5.0) mmol/L Chloride 109 (101-111) mmol/L Carbon Dioxide 11 L* (21-32) mmol/L Anion Gap 18.0 H (6-13) BUN 21 H (6-20) mg/dL Creatinine 1.1 (0.6-1.2) mg/dL Estimated GFR (MDRD) 84 L (>89) Glucose 286 H (70-100) mg/dL POC Whole Bld Glucose 403 H (70 - 100) mg/dL Calcium 8.4 L (8.5-10.3) mg/dL Phosphorus (2.5-4.6) mg/dL Magnesium 2.1 (1.7-2.8) mg/dL Total Bilirubin (0.2-1.0) mg/dL AST (10-42) IU/L ALT (10-60) IU/L Alkaline Phosphatase (42-121) IU/L Total Protein (6.7-8.2) g/dL Albumin (3.2-5.5) g/dL Globulin (2.1-4.2) g/dL Albumin/Globulin Ratio (1.0-2.2) Lipase (22-51) U/L Nasal Screen MRSA (PCR) NEGATIVE (NEGATIVE) Serum Ketones (NEGATIVE) 09/21/20 09/21/20 09/21/20 Range/Units 15:33 14:58 14:58 WBC (4.8-10.8) x10^3/uL RBC (4.70-6.10) 10^6/uL Hgb (14.0-18.0) g/dL Hct (42.0-52.0) % MCV (80.0-94.0) fL MCH (27.0-31.0) pg MCHC (32.0-36.0) g/dL RDW (12.0-15.0) % Plt Count (130-450) 10^3/uL MPV (7.4-11.4) fL Neut # (Auto) Lymph # (Auto) [place] # (Auto) Eos # (Auto) Baso # (Auto) Absolute Nucleated RBC Total Counted Band Neuts % (Manual) (0 - 10) % Abnorm Lymph % (Manual) % Nucleated RBC % Neutrophils # (Manual) (1.5-6.6) 10^3/uL Lymphocytes # (Manual) (1.5-3.5) 10^3/uL Monocytes # (Manual) (0.0-1.0) 10^3/uL Eosinophils # (Manual) (0-0.7) 10^3/uL Basophils # (Manual) (0-0.1) 10^3/uL Differential Comment WBC Morphology (NORMAL) Platelet Estimate (NORMAL) Platelet Morphology (NORMAL) RBC Morph Micro Appear (NORMAL) VBG pH 7.021 L (7.31-7.41) VBG pCO2 39.2 L (41-51) mmHg VBG pO2 32.9 (25-47) mmHg VBG HCO3 9.9 L (23-28) mmol/L VBG Total CO2 11.1 L (24-29) mmol/L VBG O2 Saturation 52.3 L (60-80) % VBG Base Excess -20.6 L (-2 - +2) mmol/L Sodium (135-145) mmol/L Potassium (3.5-5.0) mmol/L Chloride (101-111) mmol/L Carbon Dioxide (21-32) mmol/L Anion Gap (6-13) BUN (6-20) mg/dL Creatinine (0.6-1.2) mg/dL Estimated GFR (MDRD) (>89) Glucose (70-100) mg/dL POC Whole Bld Glucose 538 H* (70 - 100) mg/dL Calcium (8.5-10.3) mg/dL Phosphorus (2.5-4.6) mg/dL Magnesium (1.7-2.8) mg/dL Total Bilirubin (0.2-1.0) mg/dL AST (10-42) IU/L ALT (10-60) IU/L Alkaline Phosphatase (42-121) IU/L Total Protein (6.7-8.2) g/dL Albumin (3.2-5.5) g/dL Globulin (2.1-4.2) g/dL Albumin/Globulin Ratio (1.0-2.2) Lipase 15 L (22-51) U/L Nasal Screen MRSA (PCR) (NEGATIVE) Serum Ketones (NEGATIVE) 09/21/20 09/21/20 09/21/20 Range/Units 14:58 14:58 14:45 WBC 26.1 H (4.8-10.8) x10^3/uL RBC 5.47 (4.70-6.10) 10^6/uL Hgb 16.4 (14.0-18.0) g/dL Hct 52.2 H (42.0-52.0) % MCV 95.4 H (80.0-94.0) fL MCH 30.0 (27.0-31.0) pg MCHC 31.4 L (32.0-36.0) g/dL RDW 12.3 (12.0-15.0) % Plt Count 347 (130-450) 10^3/uL MPV 10.8 (7.4-11.4) fL Neut # (Auto) Not Reportable Lymph # (Auto) Not Reportable [place] # (Auto) Not Reportable Eos # (Auto) Not Reportable Baso # (Auto) Not Reportable Absolute Nucleated RBC Not Reportable Total Counted 100 Band Neuts % (Manual) 5 (0 - 10) % Abnorm Lymph % (Manual) 0 % Nucleated RBC % Not Reportable Neutrophils # (Manual) 24.5 H (1.5-6.6) 10^3/uL Lymphocytes # (Manual) 1.3 L (1.5-3.5) 10^3/uL Monocytes # (Manual) 0.3 (0.0-1.0) 10^3/uL Eosinophils # (Manual) 0.0 (0-0.7) 10^3/uL Basophils # (Manual) 0.0 (0-0.1) 10^3/uL Differential Comment MANUAL DIFFERENTIAL WBC Morphology NORMAL APPEARANCE (NORMAL) Platelet Estimate NORMAL (130-450,000) (NORMAL) Platelet Morphology NORMAL APPEARANCE (NORMAL) RBC Morph Micro Appear NORMAL APPEARANCE (NORMAL) VBG pH (7.31-7.41) VBG pCO2 (41-51) mmHg VBG pO2 (25-47) mmHg VBG HCO3 (23-28) mmol/L VBG Total CO2 (24-29) mmol/L VBG O2 Saturation (60-80) % VBG Base Excess (-2 - +2) mmol/L Sodium 138 (135-145) mmol/L Potassium 5.6 H (3.5-5.0) mmol/L Chloride 99 L (101-111) mmol/L Carbon Dioxide 12 L* (21-32) mmol/L Anion Gap 27.0 H (6-13) BUN 23 H (6-20) mg/dL Creatinine 1.3 H (0.6-1.2) mg/dL Estimated GFR (MDRD) 69 L (>89) Glucose 492 H (70-100) mg/dL POC Whole Bld Glucose 424 H (70 - 100) mg/dL Calcium 9.8 (8.5-10.3) mg/dL Phosphorus 7.0 H (2.5-4.6) mg/dL Magnesium 2.4 (1.7-2.8) mg/dL Total Bilirubin 1.8 H (0.2-1.0) mg/dL AST 62 H (10-42) IU/L ALT 48 (10-60) IU/L Alkaline Phosphatase 86 (42-121) IU/L Total Protein 9.2 H (6.7-8.2) g/dL Albumin 5.9 H (3.2-5.5) g/dL Globulin 3.3 (2.1-4.2) g/dL Albumin/Globulin Ratio 1.8 (1.0-2.2) Lipase (22-51) U/L Nasal Screen MRSA (PCR) (NEGATIVE) Serum Ketones SMALL H (NEGATIVE) Assessment/Plan - Problem List (1) Type 1 diabetes mellitus Impression: His diabetic ketoacidosis has resolved. He has been changed to subcutaneous insulin. Blood glucose is elevated in the 200s this morning. He has been started on Lantus 15 units in the morning and sliding scale. I have added NovoLog 4 units with meals. A1c is pending. Unfortunate, nutrition and critical care educator not available over the weekend. We will hope to discharge him tomorrow morning if his blood glucose is stable on a diet. We will set him up with outpatient critical care educator consult. 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 (2) Leukocytosis Impression: This was likely reactive. His white count has improved but remains elevated. We will continue to hold off on antibiotics. Daily CBC. Qualifiers: Leukocytosis type: bandemia Qualified Code(s): D72.825 - Bandemia (3) Acute kidney injury Impression: This has resolved. His renal function is back to baseline. (4) Hyperkalemia Impression: This has resolved. (5) DKA (diabetic ketoacidoses) Impression: This has since resolved. He has been transitioned to subcutaneous insulin. Qualifiers: Diabetes mellitus type: type 1 Diabetes mellitus complication detail: without coma Qualified Code(s): E10.10 - Type 1 diabetes mellitus with ketoacidosis without coma
[2020-09-22] MEDS: INSULIN ASPART 300 UNIT/3 ML PEN SUBQ SCH ×7 (08:14→20:53)
--- NOTE | 2020-09-22 09:08 | PHARMACY PROGRESS NOTE ---
- Best Possible Medication History Admit Date and Time: 09/21/20 1537 Processed by: Pharmacy Medication History completed: Yes Patient Interview: Pt interview ONLY source As the person ultimately responsible for medication therapy, providers are able to order a medication from an existing home medication list in [facility] via the "Reconcile Routine" prior to Confirmation of that medication by manager client support. Such practice is discouraged except when the physician, in their clinical judgment, deems that a medical need exists for a medication without regard to previous use.
[2020-09-22] MEDS: ENOXAPARIN 40 MG/0.4 ML SYRINGE SUBQ SCH (10:02)
[2020-09-22] MEDS: SODIUM CHLORIDE FLUSH 0.9% 10 ML SYRINGE IVP SCH ×2 (10:03→17:25)
[2020-09-22 13:27] LABS: HEMOGLOBIN A1c% 12.4 % (4.27-6.07)
[2020-09-23] MEDS: SODIUM CHLORIDE FLUSH 0.9% 10 ML SYRINGE IVP SCH ×2 (01:23→08:58)
[2020-09-23 05:33] LABS: BASOPHILS % (AUTO) 0.3 %; EOSINOPHILS % (AUTO) 0.5 %; HGB - HEMOGLOBIN 12.6 g/dL (14.0-18.0); LYMPHOCYTES # (AUTO) 2.6 10^3/uL (1.5-3.5); LYMPHOCYTES % (AUTO) 32.1 %; MEAN CORPUSCULAR HEMOGLOBIN 30.5 pg (27.0-31.0); MEAN CORPUSCULAR HGB CONC 33.8 g/dL (32.0-36.0); MEAN CORPUSCULAR VOLUME 90.3 fL (80.0-94.0); MEAN PLATELET VOLUME 10.4 fL (7.4-11.4); MONOCYTES # (AUTO) 0.7 10^3/uL (0.0-1.0); MONOCYTES % (AUTO) 8.8 %; NEUTROPHILS # (AUTO) 4.6 10^3/uL (1.5-6.6); PLT - PLATELET COUNT 171 10^3/uL (130-450); RED BLOOD COUNT 4.13 10^6/uL (4.70-6.10); RED CELL DISTRIBUTION WIDTH 12.5 % (12.0-15.0); WHITE BLOOD COUNT 7.9 x10^3/uL (4.8-10.8)
[2020-09-23 05:41] LABS: CALCIUM 8.4 mg/dL (8.5-10.3); CREATININE 0.6 mg/dL (0.6-1.2); PHOSPHORUS 2.9 mg/dL (2.5-4.6)
--- NOTE | 2020-09-23 07:35 | Discharge Plan ---
Discharge Plan Problem Reviewed?: Yes Disposition: Home, Self Care Condition: Good Diet: Diabetic Activity Restrictions: Activity as Tolerated Instruction Topics: Log Blood Sugar, Diabetic Ketoacidosis Health Concerns: You were seen in the hospital because of diabetic ketoacidosis. You are treated with insulin and IV fluids. It is not clear what triggered this episode. Your A1c is elevated at 12.4% which shows that your blood glucose is not well controlled at home. Plan of Treatment: I recommend increasing your evening Lantus dose to 30 units daily. Continue with the sliding scale that you were previously taking. You should be taking at least 8-10 units of shorting acting insulin with each meal. I have placed a referral to see a consumer educator here at the [facility] clinic. I encouraged that you follow-up with your primary care provider or nail setter this week. Please make sure to check your blood sugars before every meal and in the evening. Please make sure to log your blood sugars and document how much insulin you took as well as approximately what you ate. This will help your primary care provider adjust your insulin. Care Goals: Please return to the emergency department if you develop any nausea, vomiting abdominal pain or your blood glucose is persistently elevated at greater than 400. Additional Instructions or Follow Up instructions: Please follow-up with your primary care provider or nail setter this week. No Smoking: If you smoke, Please STOP! Call for help.
--- NOTE | 2020-09-23 07:36 | DISCHARGE SUMMARY ---
Discharge Summary Admit Date: 09/21/20 Discharge Date: 09/23/20 Discharging Provider: Pb Liao Primary Care Provider: [facility] Code Status: Attempt Resuscitation Condition at Discharge: Good Discharge Disposition: 01 Home, Self Care - DIAGNOSES Admission Diagnoses: Diabetic ketoacidosis, type I Leukocytosis Acute kidney injury Type 1 diabetes mellitus Hyperkalemia Discharge Diagnoses with Status of Each Condition: Type 1 diabetes mellitus - stable. Leukocytosis - resolved. Acute kidney injury - resolved. Hyperkalemia - resolved. Diabetic ketoacidosis - resolved. - HPI History of Present Illness: This is a 24-year-old male with a past medical history significant for type 1 diabetes mellitus who presents today complaining of nausea and vomiting associated with abdominal pain that began this morning. He states he went to sleep feeling well last night. His blood glucose around 200 and he took 10 units of short acting insulin as well as 15 units of Lantus. He reports that this morning he woke up feeling nauseous with abdominal pain and began to have nonbloody emesis. He did not check his blood glucose this morning as he was not feeling well. He decided to come to the emergency department due to the nausea and vomiting. He states that he is compliant with his insulin. He was diagnosed with type 1 diabetes mellitus back in 2017 or 2017 when he was admitted for diabetic ketoacidosis with a blood glucose of 1100. He states this will be his third or fourth admission for diabetic ketoacidosis. He believes his A1c is approximately 11%. He is followed at the [facility] by an communication coordinator and primary care provider although he has not seen either of them since approximately January. He reports no chest pain or dyspnea. Denies any cough or recent sick contacts. Reports no fevers although he did have chills this morning. Denies any dizziness or lightheadedness. Reports no dysuria, urgency, frequency. He states abdominal pain has now improved. In the emergency department, he was found to be afebrile but tachycardic with a heart rate in the 130s. He was not tachypneic and saturating well on room air. Labs were significant for a white count of 26,000. VBG revealed a pH 7.02. His BMP revealed a bicarbonate of 12 and anion gap of 27. His creatinine was 1.3. His blood glucose was 492. He was given a liter of IV fluids and IV insulin in the emergency department. Given the concern for diabetic ketoacidosis, medicine was consulted for admission. - HOSPITAL COURSE Hospital Course: He was admitted to the intensive care unit for diabetic ketoacidosis. He was treated with IV insulin and IV fluids. His gap had closed within 8 hours. He was started on a diet which he tolerated well and this was advanced. He was changed to subcutaneous insulin. His white count was initially elevated at 25,000 but this was felt to be reactive. This has normalized without antibiotics. His A1c came back at 12.4%. We did increase his evening dose of Lantus to 30 units on discharge given he was still hyperglycemic with blood gluc ose in the 200s. Unfortunate given over the weekend, the message and delivery service pricer and continuing education director were not available. I did place a referral for outpatient continuing education director. I asked him to follow-up with his primary care provider this week. I spent over 30 minutes on day of discharge discussing the importance of blood glucose control. I provided him with a blood glucose log and asked him to log his blood glucose every morning before breakfast, before lunch, before dinner and at night. I have asked him to take 30 units of Lantus in the evening and to continue with the sliding scale he was previously taking. I suggested that he will need at least 8 to 10 units with each meal. He states he normally takes 8 units. He was not provided with a new prescription given he reported that he has insulin at home. I encouraged him to ask his primary care provider and communication coordinator regarding continuous blood glucose monitoring and consideration of insulin pump. - ALLERGIES Allergies/Adverse Reactions: Allergies Allergy/AdvReac Type Severity Reaction Status Date / Time No Known Drug Allergies Allergy Verified 09/21/20 14:46 - MEDICATIONS Home Medications: Ambulatory Orders Medication Instructions Recorded Confirmed Insulin Aspart [NovoLOG] 8 - 10 units SQ .BEFORE MEAL AND 09/23/20 09/22/20 BED #0 Insulin Glargine [Lantus Solostar] 30 unit SUBQ QPM pen 09/23/20 - PHYSICAL EXAM AT DISCHARGE General Appearance: positive: No acute distress, Alert Eyes Bilateral: positive: Normal inspection, Conjunctivae nml ENT: positive: ENT inspection nml Neck: positive: Nml inspection Respiratory: positive: No respiratory distress. negative: Wheezes, Rales Cardiovascular: positive: Regular rate & rhythm, No murmur. negative: Tachycardia Abdomen: positive: Non-tender, No distention. negative: Tenderness, Guarding, Rebound Skin: positive: Warm, Dry Extremities: positive: Full ROM, No pedal edema Neurologic/Psychiatric: positive: Oriented x3, Motor nml Physical Exam Other/Comments: Vital Signs - 24 hr 09/22/20 09/22/20 09/22/20 14:00 15:49 20:18 Temperature 36.9 C 36.8 C 37.1 C Heart Rate [ Brachial] Heart Rate [ 68 72 60 Monitoring electrodes] Respiratory 20 20 16 Rate Blood Pressure 122/68 133/73 H [Left Brachial artery] Blood Pressure 122/68 [Right Brachial artery] O2 Saturation 99 99 100 09/23/20 09/23/20 09/23/20 01:00 05:00 07:37 Temperature 36.7 C 36.6 C 36.3 C L Heart Rate [ 68 79 Brachial] Heart Rate [ 60 Monitoring electrodes] Respiratory 16 16 18 Rate Blood Pressure [Left Brachial artery] Blood Pressure 117/66 119/72 110/72 [Right Brachial artery] O2 Saturation 99 99 100 Oxygen O2 Source Room air - LABS Result Diagrams: 09/23/20 05:06 09/23/20 05:06 Other Lab Results: Laboratory Results - last 24 hr 09/21/20 09/22/20 09/22/20 16:10 16:44 17:05 WBC RBC Hgb Hct MCV MCH MCHC RDW Plt Count MPV Neut # (Auto) Lymph # (Auto) Preble # (Auto) Eos # (Auto) Baso # (Auto) Absolute Nucleated RBC Nucleated RBC % Sodium Potassium Chloride Carbon Dioxide Anion Gap BUN Creatinine Estimated GFR (MDRD) Glucose POC Whole Bld Glucose 68 L 83 Calcium Phosphorus Magnesium Coronavirus (PCR) NEGATIVE 09/22/20 09/22/20 09/23/20 17:46 20:41 05:06 WBC 7.9 RBC 4.13 L Hgb 12.6 L Hct 37.3 L MCV 90.3 MCH 30.5 MCHC 33.8 RDW 12.5 Plt Count 171 MPV 10.4 Neut # (Auto) 4.6 Lymph # (Auto) 2.6 Preble # (Auto) 0.7 Eos # (Auto) 0.0 Baso # (Auto) 0.0 Absolute Nucleated RBC 0.00 Nucleated RBC % 0.0 Sodium Potassium Chloride Carbon Dioxide Anion Gap BUN Creatinine Estimated GFR (MDRD) Glucose POC Whole Bld Glucose 234 H 290 H Calcium Phosphorus Magnesium Coronavirus (PCR) 09/23/20 09/23/20 09/23/20 05:06 07:39 10:02 WBC RBC Hgb Hct MCV MCH MCHC RDW Plt Count MPV Neut # (Auto) Lymph # (Auto) Preble # (Auto) Eos # (Auto) Baso # (Auto) Absolute Nucleated RBC Nucleated RBC % Sodium 135 Potassium 3.6 Chloride 103 Carbon Dioxide 24 Anion Gap 8.0 BUN 13 Creatinine 0.6 Estimated GFR (MDRD) 168 Glucose 338 H POC Whole Bld Glucose 324 H 367 H Calcium 8.4 L Phosphorus 2.9 Magnesium 2.0 Coronavirus (PCR) 09/23/20 09/23/20 11:41 13:17 WBC RBC Hgb Hct MCV MCH MCHC RDW Plt Count MPV Neut # (Auto) Lymph # (Auto) Preble # (Auto) Eos # (Auto) Baso # (Auto) Absolute Nucleated RBC Nucleated RBC % Sodium Potassium Chloride Carbon Dioxide Anion Gap BUN Creatinine Estimated GFR (MDRD) Glucose POC Whole Bld Glucose 277 H 255 H Calcium Phosphorus Magnesium Coronavirus (PCR) - FOLLOW UP Follow Up: He was asked to follow-up with his primary care provider or communication coordinator this week. - TIME SPENT Time Spent in Discharge (Minutes): 35
[2020-09-23] MEDS: INSULIN ASPART 300 UNIT/3 ML PEN SUBQ SCH ×3 (07:57→11:48)
[2020-09-23] MEDS: ENOXAPARIN 40 MG/0.4 ML SYRINGE SUBQ SCH (08:58)
[2020-09-23] MEDS ORDERED: INSULIN ASPART 300 UNIT/3 ML PEN SUBQ SCH (12:00)
[2020-09-23 13:22] VITALS: BP 112/69
[2020-09-23] MEDS ORDERED: INSULIN GLARGINE 300 UNIT/3 ML PEN SUBQ SCH (21:00)
== END 2020-09-23 14:10 | disposition home or self-care (01) | DRG 638 ==
LOC: ED 14:37 → ICU 15:37 → MS2 09-22 17:26
PROVIDERS: ADMIT Internal Medicine; ATTEND Internal Medicine
DX: E10.10 Type 1 diabetes mellitus with ketoacidosis without coma (principal); N17.9 Acute kidney failure, unspecified; D72.829 Elevated white blood cell count, unspecified; E87.5 Hyperkalemia; Z79.4 Long term (current) use of insulin; Z79.899 Other long term (current) drug therapy
CPT/HCPCS: 36415; 71045; 80048; 80053; 82009; 82803; 83036; 83690; 83735; 84100; 85025; 87150; 87635; 96374; 99285; 99291; A9270; J1170; J1650; J1815

== ENCOUNTER 2020-11-14 07:00 | Outpatient (CLI) | payer OTHER | END 2020-11-14 07:01 | disposition left against medical advice (07) | LOC: EMS 07:00 | DX: Z03.89 Encounter for observation for other suspected diseases and conditions ruled out (principal) ==